=== PATIENT | female | born 1945 | race Caucasian/White ===

== ENCOUNTER 2021-09-21 13:43 | Inpatient (IN) | payer MEDICARE ==
[~2021-09-21] VITALS: Ht 162.6 cm; Wt 71.5 kg
[2021-09-21 14:52] LABS: Basophils # (auto) 0 10 ^3/uL (0-0.2); Basophils % (auto) 0.6 % (0.0-2.0); Eosinophils # (auto) 0.3 10 ^3/uL (0-0.8); Eosinophils % (auto) 4.4 % (0.0-7.0); Hematocrit 40.7 % (36.0-46.0); Hemoglobin 13.5 g/dL (12.2-16.2); Lymphocytes # (auto) 1.3 10 ^3/uL (0.4-5.4); Lymphocytes % (auto) 22.3 % (10.0-50.0); Mean Corpuscular Hgb Conc. 33.2 g/dL (32.0-36.0); Mean Corpuscular Volume 93.4 fL (80.0-100.0); Monocytes # (auto) 0.5 10 ^3/uL (0-1.3); Monocytes % (auto) 8.8 % (0.0-12.0); Neutrophils # (auto) 3.7 10 ^3/uL (1.6-8.6); Neutrophils % (auto) 63.9 % (37.0-80.0); Red Blood Cells 4.36 10^6/uL (4.0-5.20); Red Cell Distribution Width 13.3 % (11.8-14.3); White Blood Cell 5.7 10^3/uL (4.4-10.8)
[2021-09-21 15:07] LABS: INR 1.04 (0.9-1.15); Partial Thromboplastin Time 23.1 sec (23.6-33.0)
[2021-09-21 15:09] LABS: Albumin 3.5 g/dL (3.4-5.0); Calcium 9.2 mg/dL (8.5-10.1); Potassium 3.9 mmol/L (3.5-5.1)
[2021-09-21 15:13] LABS: BUN/Creatinine Ratio 33.3; Bilirubin, Total 0.8 mg/dL (0.2-1.0); Total Protein 6.7 g/dL (6.4-8.2)
[2021-09-21 16:04] LABS: Urine Bacteria NONE SEEN /hpf (None Seen); Urine Blood Negative /uL (Negative); Urine Specific Gravity 1.007 (1.001-1.035); Urine WBC <1 /hpf (0 - 5)
[2021-09-21] MEDS ORDERED: hydrALAZINE HCL 20 MG/ML VL IV PRN (19:15)
[2021-09-21] MEDS ORDERED: NITROGLYCERIN 0.4 MG SL TAB SL PRN (19:15)
[2021-09-21] MEDS ORDERED: ALBUTEROL SULF 2.5 MG/0.5ML(0.5%) NEB SOLN NEB PRN (19:15)
[2021-09-21] MEDS ORDERED: ONDANSETRON HCL 4 MG/2 ML VIAL IV PRN (19:15)
[2021-09-21] MEDS ORDERED: DOCUSATE CALCIUM 240 MG CAP PO PRN (19:15)
[2021-09-21] MEDS ORDERED: MORPHINE SULFATE INJECTION 2 MG/ML SYRG IV PRN ×2 (19:15)
[2021-09-21] MEDS ORDERED: ACETAMINOPHEN 500 MG TAB PO PRN (19:15)
[2021-09-21] MEDS ORDERED: SODIUM CHLORIDE 0.9% 1,000 ML IV SCH (19:15)
[2021-09-21 20:49] LABS: Basophils # (auto) 0 10 ^3/uL (0-0.2); Basophils % (auto) 0.5 % (0.0-2.0); Eosinophils # (auto) 0.3 10 ^3/uL (0-0.8); Eosinophils % (auto) 5.1 % (0.0-7.0); Hematocrit 45.4 % (36.0-46.0); Hemoglobin 14.9 g/dL (12.2-16.2); Lymphocytes # (auto) 1.6 10 ^3/uL (0.4-5.4); Lymphocytes % (auto) 31.6 % (10.0-50.0); Mean Corpuscular Hemoglobin 31.1 pg (28.0-32.0); Mean Corpuscular Hgb Conc. 32.7 g/dL (32.0-36.0); Mean Corpuscular Volume 95.1 fL (80.0-100.0); Monocytes # (auto) 0.3 10 ^3/uL (0-1.3); Monocytes % (auto) 6.3 % (0.0-12.0); Neutrophils # (auto) 2.8 10 ^3/uL (1.6-8.6); Neutrophils % (auto) 56.5 % (37.0-80.0); Nucleated Red Blood Cells % 0.1 %; Red Blood Cells 4.78 10^6/uL (4.0-5.20); Red Cell Distribution Width 12.9 % (11.8-14.3)
[2021-09-21 21:09] LABS: Albumin 3.6 g/dL (3.4-5.0); Calcium 9.5 mg/dL (8.5-10.1); Potassium 3.8 mmol/L (3.5-5.1)
[2021-09-21 21:15] LABS: BUN/Creatinine Ratio 33.3; Bilirubin, Total 0.9 mg/dL (0.2-1.0); Total Protein 7.3 g/dL (6.4-8.2)
[2021-09-21 21:26] VITALS: BP 148/81
[2021-09-21] MEDS: LOSARTAN POTASSIUM 50 MG TAB PO SCH (21:31)
[2021-09-21] MEDS: amLODIPine BESYLATE 5 MG TAB PO SCH (21:32)
[2021-09-21] MEDS ORDERED: AMITRIPTYLINE HCL 25 MG TAB PO SCH (22:00)
[2021-09-21 23:00] VITALS: BP 136/62
[2021-09-22 05:00] VITALS: BP 121/59
[2021-09-22] MEDS: LEVOTHYROXINE SODIUM 100 MCG TAB PO SCH (06:38)
[2021-09-22 08:00] VITALS: BP 114/52
[2021-09-22] MEDS: ENOXAPARIN SOD 40 MG/0.4 ML SYRINGE SC SCH (09:40)
[2021-09-22] MEDS: PANTOPRAZOLE 40 MG TAB PO SCH (09:40)
[2021-09-22] MEDS: HCTZ 25 MG TAB PO SCH (09:41)
[2021-09-22 09:49] VITALS: BP 114/52
[2021-09-22 14:05] VITALS: BP 153/65
[2021-09-22 16:38] VITALS: BP 144/75
[2021-09-22] MEDS ORDERED: ASPirin 81 mg TAB PO ONE (17:30)
[2021-09-22] MEDS ORDERED: AMLO-489 PO (17:56)
[2021-09-22] MEDS ORDERED: SIMV-8 PO (17:56)
[2021-09-22] MEDS ORDERED: LOSA-69 PO (17:56)
[2021-09-22] MEDS ORDERED: AMIT25TA12 PO (17:56)
[2021-09-22] MEDS ORDERED: VITA400C49 PO (17:56)
[2021-09-22] MEDS ORDERED: CYCL-839 PO (17:56)
[2021-09-22] MEDS ORDERED: LEVO100T8 PO (17:56)
[2021-09-22] MEDS ORDERED: ASPI325T4 PO (17:56)
[2021-09-22] MEDS ORDERED: MULT-1018 PO (17:56)
[2021-09-22] MEDS ORDERED: ALBU108A14 IN (17:56)
[2021-09-22] MEDS ORDERED: HYDR25TA4 PO (17:56)
[2021-09-22] MEDS ORDERED: OMEG100062 PO (17:56)
[2021-09-22] MEDS ORDERED: PROP20TA73 PO (17:56)
[2021-09-22] MEDS ORDERED: ASCO500T11 PO (17:56)
[2021-09-22] MEDS ORDERED: PYRI1TAB11 PO (17:56)
[2021-09-22] MEDS ORDERED: COEN1CAP8 PO (17:56)
[2021-09-22] MEDS ORDERED: PROP80CA40 PO (17:56)
[2021-09-22] MEDS ORDERED: LORazepam 2MG/ML-1ML VIAL IV PRN (21:30)
[2021-09-22] MEDS: ASPirin 325 MG TAB PO SCH (21:30)
[2021-09-22 22:00] VITALS: BP 148/81
[2021-09-22] MEDS ORDERED: ATORVASTATIN 20 MG TAB PO SCH ×2 (22:00)
[2021-09-22] MEDS ORDERED: AMITRIPTYLINE HCL 25 MG TAB PO SCH (22:00)
[2021-09-22] MEDS: LOSARTAN POTASSIUM 50 MG TAB PO SCH (22:19)
[2021-09-22] MEDS: PROPRANOLOL HCL 20 MG TAB PO SCH (22:19)
[2021-09-22] MEDS: amLODIPine BESYLATE 5 MG TAB PO SCH (22:20)
[2021-09-22 23:07] LABS: Cholesterol 175 mg/dL (< 200); Triglycerides 172 mg/dL (< 150)
[2021-09-22 23:10] LABS: HDL Cholesterol 55 mg/dL (40-59); LDL Cholesterol 104 mg/dL (< 100)
[2021-09-23 05:00] VITALS: BP 14/59
[2021-09-23] MEDS: LEVOTHYROXINE SODIUM 100 MCG TAB PO SCH (06:49)
[2021-09-23] MEDS: PROPRANOLOL HCL 20 MG TAB PO SCH ×2 (06:49→12:45)
[2021-09-23 09:00] VITALS: BP 120/61
[2021-09-23] MEDS: PANTOPRAZOLE 40 MG TAB PO SCH (09:31)
[2021-09-23] MEDS: ASPirin 325 MG TAB PO SCH (09:31)
[2021-09-23] MEDS: HCTZ 25 MG TAB PO SCH (09:32)
[2021-09-23] MEDS: ENOXAPARIN SOD 40 MG/0.4 ML SYRINGE SC SCH (09:33)
[2021-09-23] MEDS ORDERED: ASPirin 81 mg TAB PO SCH (10:00)
[2021-09-23 14:26] VITALS: BP 142/98
== END 2021-09-23 15:21 | disposition home or self-care (01) | DRG 66 ==
LOC: ER 13:43 → EDSEX 13:43 → TELE 19:02 → TELE-CENTR 21:42
PROVIDERS: ADMIT Family Medicine; ATTEND Internal Medicine Nephrology
DX: I63.9 Cerebral infarction, unspecified (principal); G83.11 Monoplegia of lower limb affecting right dominant side; G25.0 Essential tremor; G43.109 Migraine with aura, not intractable, without status migrainosus; E78.5 Hyperlipidemia, unspecified; I10 Essential (primary) hypertension; J45.909 Unspecified asthma, uncomplicated; R29.6 Repeated falls; E03.9 Hypothyroidism, unspecified; Z20.822 Contact with and (suspected) exposure to COVID-19; Z79.82 Long term (current) use of aspirin; Z79.899 Other long term (current) drug therapy; Z82.49 Family history of ischemic heart disease and other diseases of the circulatory system; Z86.73 Personal history of transient ischemic attack (TIA), and cerebral infarction without residual deficits; Z90.710 Acquired absence of both cervix and uterus; Z91.09 Other allergy status, other than to drugs and biological substances; Z90.49 Acquired absence of other specified parts of digestive tract
CPT/HCPCS: 36415; 70450; 80053; 80061; 81001; 84443; 84484; 85025; 85610; 85730; 87426; 93005; 93886; 96360; G0378

== ENCOUNTER → 2021-10-04 | Outpatient (CLI) | payer MEDICARE ==
[~2021-10-04] MED LIST: ALBU108A14 IN; AMIT25TA12 PO; AMLO-489 PO; ASPI325T4 PO; HYDR25TA4 PO; LEVO100T8 PO; LOSA-69 PO; MULT-1018 PO; OMEG100062 PO; PROP20TA73 PO; SIMV-8 PO
== END | disposition home or self-care (01) ==
LOC: XYW 13:41
PROVIDERS: ATTEND Psychiatry & Neurology Neurology
DX: I35.0 Nonrheumatic aortic (valve) stenosis (principal); I05.0 Rheumatic mitral stenosis; I63.9 Cerebral infarction, unspecified
CPT/HCPCS: 93306

== ENCOUNTER → 2021-10-12 | Outpatient (CLI) | payer MEDICARE ==
[2021-10-12 12:43] LABS: Cholesterol 159 mg/dL (< 200); HDL Cholesterol 71 mg/dL (40-59); LDL Cholesterol 70 mg/dL (< 100); Triglycerides 84 mg/dL (< 150)
== END | disposition home or self-care (01) ==
LOC: LAB 11:42
PROVIDERS: ATTEND Psychiatry & Neurology Neurology
DX: I63.9 Cerebral infarction, unspecified (principal)
CPT/HCPCS: 36415; 80061

== ENCOUNTER 2023-10-04 20:08 | Emergency (ER) | payer MEDICARE ==
[~2023-10-04] VITALS: Ht 162.6 cm; Wt 65.9 kg
[~2023-10-04 20:08] MED LIST changes: -AMIT25TA12 PO; +AMIT25TA20 PO; -AMLO-489 PO; +AMLO1TAB22 PO; -LOSA-69 PO; +LOSA50TA46 PO; +PROP1TAB53 PO; -PROP20TA73 PO; -SIMV-8 PO; +SIMV20TA20 PO
[2023-10-04] MEDS ORDERED: HYDROcodone-ACET 10/325MG TAB PO ONE (20:45)
[2023-10-04] MEDS ORDERED: LIDOCAINE W/ EPINEPHRINE 1% 20ML VIAL ID ONE (20:45)
[2023-10-04] MEDS ORDERED: LIDOCAINE HCL 5 % TOP OINT 35 GM TOP ONE (20:45)
[2023-10-04] MEDS ORDERED: ONDANSETRON ODT 4 MG TAB PO ONE (20:45)
[2023-10-04 20:48] VITALS: RESP 13; O2SAT 95
[2023-10-04 23:00] VITALS: BP 142/63; PULSE 65; RESP 15; TEMP 98.2; O2SAT 97
[2023-10-04] MEDS ORDERED: NEOMYCIN-BACITRACIN-POLYM UNITDOSE PKG TOP OINT TOP ONE (23:30)
== END 2023-10-05 00:23 | disposition home or self-care (01) ==
LOC: ER 20:08 → EDBD 20:08 → ER 10-05 00:16
DX: S01.01XA Laceration without foreign body of scalp, initial encounter (principal); I10 Essential (primary) hypertension; E78.5 Hyperlipidemia, unspecified; W18.09XA Striking against other object with subsequent fall, initial encounter; Y93.89 Activity, other specified; Y92.89 Other specified places as the place of occurrence of the external cause; Y99.8 Other external cause status
CPT/HCPCS: 12002; 70450

== ENCOUNTER 2025-05-02 23:17 | Inpatient (IN) | payer MEDICARE ==
[~2025-05-02] VITALS: Ht 162.6 cm; Wt 65.5 kg
[~2025-05-02 23:17] MED LIST changes: -ASPI325T4 PO; +ASPI325T6 PO; +LOSA-534 PO; -LOSA50TA46 PO
[2025-05-03] VITALS (10 sets, daily range): BP systolic 125–157; BP diastolic 66–73; PULSE 53–78; RESP 12–21; TEMP 98.3–98.6; O2SAT 93–98
--- NOTE | 2025-05-03 00:05 | DVH ---
CHEST RADIOGRAPH Indication: dizziness Technique: Single frontal view of the chest was obtained COMPARISON: None FINDINGS: Lines and Tubes: None Lungs: Clear Pleura: No effusion. No pneumothorax. Cardiomediastinal contours: Unremarkable. Atherosclerotic vascular calcifications. Bones: Unremarkable IMPRESSION: 1. No acute disease.
[2025-05-03 00:13] LABS: Hematocrit 47.0 % (36.0-46.0); Hemoglobin 15.9 g/dL (12.2-16.2); Mean Corpuscular Hemoglobin 31.7 pg (28.0-32.0); Mean Corpuscular Volume 93.8 fL (80.0-100.0); Nucleated Red Blood Cells % 0.0 %
[2025-05-03 00:21] LABS: Chloride 105 mmol/L (98-107); Potassium 3.6 mmol/L (3.5-5.1); Sodium 142 mmol/L (136-145)
[2025-05-03 00:22] LABS: Anion Gap 9 (5-15); Calcium 9.7 mg/dL (8.7-10.4); Carbon Dioxide 28 mmol/L (20-31)
--- NOTE | 2025-05-03 00:26 | DVH ---
CT BRAIN WITHOUT CONTRAST HISTORY: falling TECHNIQUE: Axial scans were obtained from the skull base through the vertex without contrast. Sag[place] l and coronal reformats were generated. One or more of the following radiation dose reduction techniq ues were used for this examination: automated exposure control, adjustment of the mA and/or kV accord ing to patient size, use of iterative reconstruction technique. COMPARISON: CT HEAD WITHOUT CONTRAST on DOS: 10/04/23 FINDINGS: No acute intracranial hemorrhage or evidence of large vessel territorial infarction identified at thi s time. No midline shift. The basilar cisterns are patent. The visualized paranasal sinuses and mastoid air cells are clear. No grossly displaced calvarial frac ture is identified. Small left frontal scalp contusion. IMPRESSION: No acute intracranial findings. Small left frontal scalp contusion.
[2025-05-03 00:27] LABS: BUN/Creatinine Ratio 22.2 (10.0-20.0); Blood Urea Nitrogen 18 mg/dL (9-23)
--- NOTE | 2025-05-03 00:29 | ED.PDOC ---
History of Present Illness HPI Comments 79 y/o F presents with 2x day history of headache, generalized facial and forehead bruising, and dizziness s/p mechanical fall and injury. Patient endorses on losing her balance and falling face forward and hitting the floor without lost of consciousness 2x days ago. Significant history of history of HTN, HLD, hypothyroidism, reactive airway disease, migraines, CVA w/right sided deficits, tremors, thyroidectomy, right breast lumpectomy, cholecystectomy, and hysterectomy. Patient comments on right sided weakness worsening over the past 4-5x days. Denies any lightheadedness, vision or speech changes, facial droop, additional injuries, or further associated symptoms. Chief Complaint: Dizziness Time Seen by MD: 23:30 Primary Care Provider: CHRISTINE Reviewed Notes: Nurses Notes, Medications, Allergies Allergies: Coded Allergies: Codeine (Verified Allergy, Unknown, 05/03/25) Uncoded Allergies: PAPER TAPE (Allergy, Unknown, 09/21/21) Home Meds Reported Medications Propranolol HCl (Propranolol Hydrochloride) 20 Mg Tab, 20 MG PO BIDP PRN for SBP>150, TAB 09/22/21 [place]-3 Fatty Acids (Fish Oil) 1,000 Mg Cap, 1000 MG PO DAILY, CAP 09/22/21 Multiple Vitamin (Multivitamins) Tab, 1 TAB PO DAILY, #90 TAB 3 Refills 09/22/21 Aspirin (Aspirin) 325 Mg Tab, 325 MG PO DAILY for 30 Days, MG 09/22/21 Albuterol Sulfate (Proair Digihaler) 108 Mcg/Act Aer, 108 MCG IN, AER 09/22/21 Hydrochlorothiazide (Hydrochlorothiazide) 25 Mg Tab, 25 MG PO DAILY for 30 Days, MG 09/22/21 Losartan Potassium (Losartan Potassium) 50 Mg Tab, 50 MG PO DAILY for 30 Days, MG 09/22/21 Amlodipine Besylate (Amlodipine Besylate) 5 Mg Tab, 5 MG PO DAILY for 30 Days, MG 09/22/21 Amitriptyline Hcl (Amitriptyline Hcl) 25 Mg Tab, 100 MG PO HS for 30 Days, MG 09/22/21 Levothyroxine Sodium (Levothyroxine Sodium) 100 Mcg Tab, 100 MCG PO QAM for 30 Days, MCG 09/22/21 Simvastatin (Simvastatin) 20 Mg Tab, 20 MG PO DAILY for 30 Days 11/19/21 Information Source: Patient Mode of Arrival: Ambulatory Severity: Moderate Timing: Days Duration: Since onset Prehospital treatment: None Past Medical History PAST MEDICAL HISTORY: CVA, High Lipids, HTN, Thyroid (hypothyroidism ), TIA Past Medical History (Other): reactive airway disease, migraines, tremors Surgical History: Cholecystectomy, Hysterectomy, Thyroidectomy Surgical History (Other): right breast lumpectomy 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 History Family History Family History: Reviewed,noncontributory to illness Social History Smoker: Non-Smoker Alcohol: Denies ETOH Use Drugs: Denies Drug Use Lives In: Home All Other Systems: Reviewed and Negative (As per HPI) Physical Exam General Appearance: No Apparent Distress, Normal HEENT: Normal ENT Inspection, Pharynx Normal, TMs Normal Neck: Full Range of Motion, Non-Tender, Normal, Normal Inspection Respiratory: Chest Non-Tender, Lungs Clear, No Accessory Muscle Use, No Respiratory Distress, Normal Breath Sounds Cardiovascular: No Edema, No JVD, No Murmur, No Gallop, Normal Peripheral Pulses, Regular Rate/Rhythm Breast Exam: Deferred Gastrointestinal: No Organomegaly, Non Tender, No Pulsatile Mass, Normal Bowel Sounds, Soft Genitalia: Deferred Pelvic: Deferred Rectal: Deferred Extremities: No calf tenderness, Normal capillary refill, Normal inspection, Normal range of motion, Non-tender, No pedal edema Musculoskeletal : Apperance: Normal 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 Was a procedure done?: No Differential Dx Considerations may include: Closed head injury, intracranial bleed, CVA, TIA, syncope, arrhythmia, hypoglycemia, hypotension, intracranial bleed, skull fracture X-Ray, Labs, Meds, VS Vital Signs Date Time Temp Pulse Resp B/P (MAP) Pulse Ox O2 Delivery O2 Flow Rate FiO2 05/02/25 23:30 98.1 67 16 139/37 (71) 95 98.1 Lab Test 05/02/25 23:53 Range/Units White Blood Count 6.8 4.4-10.8 10^3/uL Red Blood Count 5.01 4.0-5.20 10^6/uL Hemoglobin 15.9 12.2-16.2 g/dL Hematocrit 47.0 H 36.0-46.0 % Mean Corpuscular Volume 93.8 80.0-100.0 fL Mean Corpuscular Hemoglobin 31.7 28.0-32.0 pg Mean Corpuscular Hemoglobin Concent 33.8 32.0-36.0 g/dL Red Cell Distribution Width 13.2 11.8-14.3 % Platelet Count 281 140-450 10^3/uL Mean Platelet Volume 8.2 6.9-10.8 fL Neutrophils (%) (Auto) 62.0 37.0-80.0 % Lymphocytes (%) (Auto) 25.3 10.0-50.0 % Monocytes (%) (Auto) 8.5 0.0-12.0 % Eosinophils (%) (Auto) 3.8 0.0-7.0 % Basophils (%) (Auto) 0.4 0.0-2.0 % Neutrophils # (Auto) 4.2 1.6-8.6 10 ^3/uL Lymphocytes # (Auto) 1.7 0.4-5.4 10 ^3/uL Monocytes # (Auto) 0.6 0-1.3 10 ^3/uL Eosinophils # (Auto) 0.3 0-0.8 10 ^3/uL Basophils # (Auto) 0 0-0.2 10 ^3/uL Nucleated Red Blood Cells 0.0 % Sodium Level 142 136-145 mmol/L Potassium Level 3.6 3.5-5.1 mmol/L Chloride Level 105 98-107 mmol/L Carbon Dioxide Level 28 20-31 mmol/L Anion Gap 9 5-15 Blood Urea Nitrogen 18 9-23 mg/dL Creatinine 0.81 0.550-1.02 mg/dL Glomerular Filtration Rate Calc 74 >90 mL/min BUN/Creatinine Ratio 22.2 H 10.0-20.0 Serum Glucose 112 H 74-106 mg/dL Calcium Level 9.7 8.7-10.4 mg/dL Troponin I High Sensitivity 11 </=34 ng/L Time of 1ST Reevaluation: 00:00 Reevaluation 1ST: Unchanged Patient Education/Counseling: Diagnosis, Treatment, Prognosis, Need For Follow Up Family Education/Counseling: Diagnosis, Treatment, Prognosis, Need For Follow Up, No Family Present Comments pt reports feeling dizzy and lost her balance, which led to her hitting her face on the floor, without attempting to break her fall. she denies LOC, but cannot explain why she did not try to break her fall. this seems unusual. she has had a CVA in the past. i will admit her for further evaluation of this suspected syncopal episode SEPSIS Sepsis Screen Physician Orders Head Without Contrast (05/02/25 23:37) Chest Portable (05/02/25 23:37) Continuous Ekg Monitoring 08,12,16,20,00,04 (05/02/25 23:37) Electrocardigram (05/02/25 23:37) Troponin-I Hs (05/03/25 00:37) Troponin-I Hs (05/03/25 02:37) Electrocardigram (05/03/25 00:37) Electrocardigram (05/03/25 02:37) Vital Signs Date Time Temp Pulse Resp B/P (MAP) Pulse Ox O2 Delivery O2 Flow Rate FiO2 05/02/25 23:30 98.1 67 16 139/37 (71) 95 98.1 Laboratory Tests Test 05/02/25 23:53 White Blood Count 6.8 10^3/uL (4.4-10.8) Departure 1 Departure Time of Disposition: 00:45 Impression: Primary Impression: Facial contusion Qualified Codes: S00.83XA - Contusion of other part of head, initial encounter Additional Impressions: Falling Syncope Qualified Codes: R55 - Syncope and collapse Disposition: ADMITTED INPATIENT Admit to: [facility] Condition: Stable Discharged With: Self Critical Care Note Critical Care Time?: Yes (55 min-critical care time only) Critical care comment: Due to concerns for patients condition deteriorating, the care required my highest level of attention and readiness to intervene. I assessed the patient, reviewed the medical records, ordered the appropriate tests and treatments, then reassessed for results and responsiveness. I communicated with medical personnel and consultants and formulated a plan of care. Total critical care time excludes any procedures Stability Stability form required: No Heart Score Heart Score: Heart Score Response (Comments) Value History N/A 0 EKG N/A 0 Age N/A 0 Risk Factors N/A 0 Troponin N/A 0 Total 0 I personally scribed for PEARL COBB MD [facility] on 05/03/25 at 00:29. Electronically submitted by Andres Coleman [email or web address]). PEARL COBB MD May 03, 2025 00:29
[2025-05-03 00:32] LABS: Glucose 112 mg/dL (74-106)
[2025-05-03] MEDS ORDERED: ACETAMINOPHEN 325 MG TAB PO PRN (07:45)
[2025-05-03] MEDS ORDERED: ONDANSETRON HCL 4 MG/2 ML VIAL IV PRN (07:45)
[2025-05-03] MEDS ORDERED: MORPHINE SULFATE INJ 2 MG/ml SYRG IV PRN (07:45)
[2025-05-03] MEDS ORDERED: NITROGLYCERIN 0.4 MG SL TAB SL PRN (07:45)
[2025-05-03] MEDS ORDERED: DOCUSATE SOD 100 MG CAP PO PRN (07:45)
[2025-05-03] MEDS ORDERED: HYDROcodone-ACET 5/325MG TAB PO PRN (07:45)
--- NOTE | 2025-05-03 07:48 | DVHHP2 ---
History of Present Illness Reason for Visit: Fall History of Present Illness Barbara Macias is a 79-year-old female with past medical history of hypertension, hyperlipidemia, migraines, hypothyroidism, and CVA who came to the hospital due to dizziness and falls. Patient states she has had 2 fall in the last week. She has visible trauma to her face, and forehead. She states she has been experiencing dizziness that feels like vertigo. She states it feels like the floor is moving, she gets an anxious feeling, and becomes shaky. She states she fell on and Saturday. Her said she fell out of bed Saturday morning and landed on her face, she does not remember the event. Patient is bradycardic while in the ER. She does take propranolol at home, home propranolol will be held. 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) Endocrine: Hypothyroidism Past Surgical History: Cholecystectomy, Hysterectomy, Other (Thyroidectomy, left breast lumpectomy) Smoke: No ALCOHOL: none Drugs: None Lives: with Family Domestic Violence: Neg Review of Systems Allergies: Coded Allergies: Codeine (Verified Allergy, Unknown, 05/03/25) Uncoded Allergies: PAPER TAPE (Allergy, Unknown, 09/21/21) Medications Current Medications Medications Dose Ordered Sig/Low Route Start Time Stop Time Status Last Admin Dose Admin Acetaminophen/ Hydrocodone Bitart 1 tab Q4HP PRN PO 05/03/25 07:45 UNV Ondansetron HCl 4 mg Q4HP PRN IV 05/03/25 07:45 UNV Docusate Sodium 100 mg BIDPRN PRN PO 05/03/25 07:45 UNV Acetaminophen 650 mg Q6HP PRN PO 05/03/25 07:45 UNV Nitroglycerin 0.4 mg Q5MINP PRN SL 05/03/25 07:45 UNV Morphine Sulfate 2 mg Q30M PRN IV 05/03/25 07:45 UNV Exam Vital Signs Vital Signs Date Time Temp Pulse Resp B/P (MAP) Pulse Ox O2 Delivery O2 Flow Rate FiO2 05/03/25 07:04 181/62 05/03/25 06:41 56 18 97 Room Air* 0 21 05/03/25 06:41 98.1 98.1 Labs/Xrays Labs Test 05/03/25 00:56 05/02/25 23:53 Range/Units Troponin I High Sensitivity 10 </=34 ng/L White Blood Count 6.8 4.4-10.8 10^3/uL Red Blood Count 5.01 4.0-5.20 10^6/uL Hemoglobin 15.9 12.2-16.2 g/dL Hematocrit 47.0 H 36.0-46.0 % Mean Corpuscular Volume 93.8 80.0-100.0 fL Mean Corpuscular Hemoglobin 31.7 28.0-32.0 pg Mean Corpuscular Hemoglobin Concent 33.8 32.0-36.0 g/dL Red Cell Distribution Width 13.2 11.8-14.3 % Platelet Count 281 140-450 10^3/uL Mean Platelet Volume 8.2 6.9-10.8 fL Neutrophils (%) (Auto) 62.0 37.0-80.0 % Lymphocytes (%) (Auto) 25.3 10.0-50.0 % Monocytes (%) (Auto) 8.5 0.0-12.0 % Eosinophils (%) (Auto) 3.8 0.0-7.0 % Basophils (%) (Auto) 0.4 0.0-2.0 % Neutrophils # (Auto) 4.2 1.6-8.6 10 ^3/uL Lymphocytes # (Auto) 1.7 0.4-5.4 10 ^3/uL Monocytes # (Auto) 0.6 0-1.3 10 ^3/uL Eosinophils # (Auto) 0.3 0-0.8 10 ^3/uL Basophils # (Auto) 0 0-0.2 10 ^3/uL Nucleated Red Blood Cells 0.0 % Sodium Level 142 136-145 mmol/L Potassium Level 3.6 3.5-5.1 mmol/L Chloride Level 105 98-107 mmol/L Carbon Dioxide Level 28 20-31 mmol/L Anion Gap 9 5-15 Blood Urea Nitrogen 18 9-23 mg/dL Creatinine 0.81 0.550-1.02 mg/dL Glomerular Filtration Rate Calc 74 >90 mL/min BUN/Creatinine Ratio 22.2 H 10.0-20.0 Serum Glucose 112 H 74-106 mg/dL Calcium Level 9.7 8.7-10.4 mg/dL Assessment/Plan Assessment/Plan Assessment: Syncope, Fall with facial injury, Bradycardia, Hypertension, Hyperlipidemia, hypothyroidism, Plan: Admit to Tele, Neurology consult, Cardiology consult, Fall precautions, Physical therapy evaluation, Home medications reconciled, Plan discussed with: Patient My Orders Orders - FREDDY HOYT Procedure Category Date Status Time Admit ADMIT 05/03/25 Transmitted 07:41 Code Status CODE 05/03/25 Transmitted 07:41 2 Gm Sodium Diet DIET 05/03/25 Transmitted Breakfast Hydrocodone-Acet PHA 05/03/25 Transmitted 5/325mg Tab ([place] 07:45 Ondansetron Hcl PHA 05/03/25 Transmitted (Zofran) 07:[address] [facility] 05/03/25 Transmitted Capsule (Colace 07:45 Fall Risk Precautions [facility] 05/03/[address] 07:41 Complete Blood Count LAB 05/04/25 Verified 04:00 Comprehensive LAB 05/04/25 Verified Metabolic Panel 04:00 Pt Request For Service PT 05/03/25 Logged 07:41 Condition: Serious [facility] 05/03/25 In Process 07:[address] [facility] 05/03/25 Transmitted (Tylenol Tablet) 07:[address] [facility] 05/03/25 Transmitted Sublingual (Ntrostat 07:45 Morphine Sulfate PHA 05/03/25 Transmitted Injection 07:45 Stat Ekg For Chest [facility] 05/03/25 In Process Pain 07:41 Notify Md Of Changes [facility] 05/03/25 In Process From Base 07:41 Vice President Of Sales For [facility] 05/03/25 In Process 24 Hours 07:41 Emergency Dysrhythmia [facility] 05/03/25 In Process Protocol 07:41 Rhythm Strips Once [facility] 05/03/25 In Process Every Shift 07:41 Oxygen By Nasal RT 05/03/25 Transmitted Cannula 07:41 * Neurology Consult CONS 05/03/25 Transmitted 07:41 Date of Service: May 03, 2025 Billing Provider: FREDDY HOYT Common Visit Codes: [id number] INP/OBS CARE (MOD) FREDDY HYOT May 03, 2025 07:48
--- NOTE | 2025-05-03 08:59 | DVHINCON2 ---
Date of service: May 03, [address] Abbott Reason for Consultation Syncope History of Present Illness Ms. Macias is a 79 years old right-handed female with a history of hypertension, she came to the hospital on 05/02/2025 with a chief complaint of weakness and forehead bruising. At this time, she is alert and fully oriented, she provided the following history I saw on 09/22/2021 for TIA/right leg weakness, shaky feeling. She does not know what happened to her, but she woke up on the floor by her bedside with bruise in the head; she presumes she was told me wrong direction and fell off bed and she might have loss of consciousness for sec of time, on waking up, she was confused, but she knew the place, the time, and family member around her. She noticed bruise in the left forehead. She denies headache In the evening on 05/01/2025, when she was bending over to potato picker something, she slumped over and hurt her head again, positive with loss of consciousness for sec of time, and she ended with bilateral periorbital bruises. She has no headache following the fall Since 05/02/2025, she notices her speech is not normal, in that she understands, and she knows what to say but has difficulty getting the right words out. Her problem is better on 05/03/2025 but still persists, She denies focal weakness numbness. In 1994, the patient developed numbness in the right lower lip, spreading the right face, the patient did not seek medical attention to 10 days later after her family doctor was available. Later she was seen by neurologist and had an MRI, according to the report she came with, MRI and MRA brain scan on 08/05/1995 for unremarkable. She is on aspirin 325 mg daily, Zocor 20 mg daily She has tremors in the hands since 1999, with the right side more affected. She has tremors when she is eating, drinking, writing or work with her hands, as result, she has difficulty putting make-up, writing, eating. Alcohol does not affect the tremors. I do not see change in her voice, diminished facial expression and blinking, she is on Inderal 160 mg daily, with good results. Her mental [place] and her mother had similar tremors She has periodic severe headache with photophobia, phonophobia, nausea since the age of [age] years old. The headache typically lasts for 24 hours, and is used to be 3 to 4 times monthly, hhe had spinning sensation or vertigo during the intense headache attacks. With amitriptyline 100 mg daily, Inderal 160 mg daily, the headache has been under good control, her last intense headache was before 2023. Her father, 2 sons had/have similar headache or migraine headache. No family history of brain aneurysm She sees Dr. Stein, a local neurologist CBC, 05/02/2025: Unremarkable BMP 05/02/2025: Unremarkable TG/HDL/LDL/HDL, 10/12/21: 84/159/70/71 Carotid Doppler, 09/22/2021: Unremarkable CT head, 09/21/2021: 1. No acute intracranial hemorrhage, mass effect or midline shift. 2. Mild generalized atrophy. Mild microangiopathic ischemic change. 3. Intracranial atherosclerosis CT head, 05/02/2025: No acute intracranial findings. Small left frontal scalp contusion. Past Medical History Hypertension, hypothyroidism, dyslipidemia, tremors Past Surgical History Cholecystectomy, hysterectomy, thyroidectomy Family History: Hypercholesterolemia Hypertension Family History Hypertension, dyslipidemia, migraine (father, 2 sons), her mother and the maternal grandpa had tremors Social History She is a nontobacco smoker, she denies a history of alcohol recreational substance abuse Allergies: Coded Allergies: Codeine (Verified Allergy, Unknown, 05/03/25) Uncoded Allergies: PAPER TAPE (Allergy, Unknown, 09/21/21) Home Meds Reported Medications Propranolol HCl (Propranolol Hydrochloride) 160 Mg Cap, 160 MG PO DAILY 05/03/25 Amitriptyline HCl (Amitriptyline Hydrochlori) 100 Mg Tab, 1 TAB PO HS 05/03/25 Citalopram Hydrobromide (Citalopram Hydrobromide) 40 Mg Tab, 1 TAB PO DAILY 05/03/25 Propranolol HCl (Propranolol Hydrochloride) 20 Mg Tab, 20 MG PO BIDP PRN for SBP>150, TAB 09/22/21 [place]-3 Fatty Acids (Fish Oil) 1,000 Mg Cap, 1000 MG PO DAILY, CAP 09/22/21 Multiple Vitamin (Multivitamins) Tab, 1 TAB PO DAILY, #90 TAB 3 Refills 09/22/21 Aspirin (Aspirin) 325 Mg Tab, 325 MG PO DAILY for 30 Days, MG 09/22/21 Albuterol Sulfate (Proair Digihaler) 108 Mcg/Act Aer, 108 MCG IN, AER 09/22/21 Hydrochlorothiazide (Hydrochlorothiazide) 25 Mg Tab, 25 MG PO DAILY for 30 Days, MG 09/22/21 Losartan Potassium (Losartan Potassium) 50 Mg Tab, 50 MG PO DAILY for 30 Days, MG 09/22/21 Levothyroxine Sodium (Levothyroxine Sodium) 100 Mcg Tab, 100 MCG PO QAM for 30 Days, MCG 09/22/21 Simvastatin (Simvastatin) 20 Mg Tab, 20 MG PO DAILY for 30 Days 09/22/21 Discontinued Reported Medications Amlodipine Besylate (Amlodipine Besylate) 5 Mg Tab, 5 MG PO DAILY for 30 Days, MG 09/22/21 Amitriptyline Hcl (Amitriptyline Hcl) 25 Mg Tab, 100 MG PO HS for 30 Days, MG 09/22/21 Current Medications Current Medications Medications (Trade) Dose Ordered Sig/Low Route PRN Reason Start Time Stop Time Status Last Admin Acetaminophen/ Hydrocodone Bitart ([place] 5/325MG Tab) 1 tab Q4HP PRN PO MODERATE PAIN (4-6 PAIN SCALE) 05/03/25 07:45 Ondansetron HCl (Zofran) 4 mg Q4HP PRN IV NAUSEA / VOMITING 05/03/25 07:45 Docusate Sodium (Colace Capsule) 100 mg BIDPRN PRN PO FOR CONSTIPATION 05/03/25 07:45 Acetaminophen (Tylenol Tablet) 650 mg Q6HP PRN PO PAIN SCALE 1-3 OR TEMP>100.4 05/03/25 07:45 Nitroglycerin (Ntrostat Sublingual) 0.4 mg Q5MINP PRN SL FOR CHEST PAIN 05/03/25 07:45 Morphine Sulfate 2 mg Q30M PRN IV FOR CHEST PAIN 05/03/25 07:45 Review of Systems As above, the other systems are negative Vital Signs Vital Signs Date Time Temp Pulse Resp B/P (MAP) Pulse Ox O2 Delivery O2 Flow Rate FiO2 05/03/25 08:25 97.7 52 12 163/63 (96) 95 97.7 05/03/25 07:30 Room Air* 0 21 Physical Exam GENERAL EXAM: General: the patient is well developed and nourished. No acute distress. HEENT: A big bruise in the left frontal head region, bilateral periorbital ecchymosis with the right-sided worse, neck is supple, no carotid bruits. No mass. RESPIRATORY: Normal respiratory effort with symmetrical lung expansion. Lungs clear to auscultation. CARDIOVASCULAR: Regular rate and rhythm with no murmurs. S1, S2. ABDOMEN: Soft, nontender, normal bowel sound NEUROLOGICAL: MENTAL STATUS: Awake and alert. Oriented to person, place, time and general circumstances. Able to give personal history. SPEECH, LANGUAGE, HIGHER CORTICAL FUNCTION: no aphasia or dysathria. CRANIAL NERVES: #2: Intact visual desouza to confrontation. The optic discs were sharp. #3,4,6: Pupils are equal, round and reactive. EOMs full and conjugate. No nystagmus. #5: Facial sensation intact in all three divisions bilaterally. Mandibular strength intact. #7: Facial muscles symmetrical and strength intact. #8: Hearing grossly normal to voice. #9,10: Uvula and soft palate rise in the midline. Swallow and voice are normal. #11: Trapezius and sternomastoid strength intact bilaterally. #12: Tongue midline. No fasciculations or atrophy. SENSATION: Sensation to touch and pinprick is normal. MOTOR: Normal tone in the upper and lower extremity. Normal muscle bulk. No fasciculations. I see very mild bilateral dynamic tremors in the hands. Muscle strength of the major groups in the upper extremities is 5/5. Muscle strength of the major groups in the lower extremities is 5/5. REFLEXES: Deep tendon reflexes normal and symmetrical. No pathological reflexes. CEREBELLAR/COORDINATION: Finger to nose and heel to cooper are normal bilaterally. GAIT/STATION: deferred Labs/Diagnostic Data Labs Test 05/03/25 00:56 05/02/25 23:53 Range/Units Troponin I High Sensitivity 10 </=34 ng/L White Blood Count 6.8 4.4-10.8 10^3/uL Red Blood Count 5.01 4.0-5.20 10^6/uL Hemoglobin 15.9 12.2-16.2 g/dL Hematocrit 47.0 H 36.0-46.0 % Mean Corpuscular Volume 93.8 80.0-100.0 fL Mean Corpuscular Hemoglobin 31.7 28.0-32.0 pg Mean Corpuscular Hemoglobin Concent 33.8 32.0-36.0 g/dL Red Cell Distribution Width 13.2 11.8-14.3 % Platelet Count 281 140-450 10^3/uL Mean Platelet Volume 8.2 6.9-10.8 fL Neutrophils (%) (Auto) 62.0 37.0-80.0 % Lymphocytes (%) (Auto) 25.3 10.0-50.0 % Monocytes (%) (Auto) 8.5 0.0-12.0 % Eosinophils (%) (Auto) 3.8 0.0-7.0 % Basophils (%) (Auto) 0.4 0.0-2.0 % Neutrophils # (Auto) 4.2 1.6-8.6 10 ^3/uL Lymphocytes # (Auto) 1.7 0.4-5.4 10 ^3/uL Monocytes # (Auto) 0.6 0-1.3 10 ^3/uL Eosinophils # (Auto) 0.3 0-0.8 10 ^3/uL Basophils # (Auto) 0 0-0.2 10 ^3/uL Nucleated Red Blood Cells 0.0 % Sodium Level 142 136-145 mmol/L Potassium Level 3.6 3.5-5.1 mmol/L Chloride Level 105 98-107 mmol/L Carbon Dioxide Level 28 20-31 mmol/L Anion Gap 9 5-15 Blood Urea Nitrogen 18 9-23 mg/dL Creatinine 0.81 0.550-1.02 mg/dL Glomerular Filtration Rate Calc 74 >90 mL/min BUN/Creatinine Ratio 22.2 H 10.0-20.0 Serum Glucose 112 H 74-106 mg/dL Calcium Level 9.7 8.7-10.4 mg/dL Assessment Multiple bruises in the head, secondary to falls Speech disturbance/? Expressive aphasia since 05/02/2025, to rule out acute stroke or other pathology History of acute stroke syndrome, with negative MRI scan Basilar artery migraine Essential tremors He has a complicated consultation, time spent is more than 55 minutes Plan/Recommendation Monitoring Support treatment Telemetry Lipid profile MRI brain Carotid Doppler Echocardiogram Aspirin 325 mg daily (home medication) Lipitor 20 mg daily Amitriptyline 100 mg at bedtime (for medication) Inderal 160 mg daily (home medication) Avoid the triptan and ergot agent for headache attack Follow up with her doctors on discharge TOÑO Progress: Poor This medical document was created using an electronic medical record system with [employer] computerized dictation system. Although this document has been carefully reviewed, there may still be some phonetic and typographical errors. These areas are purely typographical due to imperfections of the software programs, and do not reflect any compromise in the patient's medical care. Plan discussed with: Patient, Other WING DOWNEY MD May 03, 2025 08:59
[2025-05-03] MEDS ORDERED: AMIT100T75 PO (09:04)
[2025-05-03] MEDS ORDERED: [UNRECOGNIZED DRUG - CODE] PO (09:04)
[2025-05-03] MEDS ORDERED: CITA-73 PO (09:04)
[2025-05-03] MEDS ORDERED: PATIENTS OWN MEDICATION (Simvastatin 20 MG) PO SCH (10:00)
[2025-05-03] MEDS ORDERED: PATIENTS OWN MEDICATION (Citalopram Hydrobromide 1 TAB) PO SCH (10:00)
[2025-05-03] MEDS: LOSARTAN POTASSIUM 50 MG TAB PO SCH (10:00)
[2025-05-03] MEDS: hydroCHLOROthiazide 25 MG TAB PO SCH (10:00)
[2025-05-03] MEDS: MULTIPLE VITAMIN TAB PO SCH (10:10)
[2025-05-03 11:07] LABS: Triglycerides 142 mg/dL (< 150)
[2025-05-03 11:09] LABS: Cholesterol 186 mg/dL (< 200); HDL Cholesterol 66 mg/dL (40-59)
[2025-05-03] MEDS: ATORVASTATIN 20 MG TAB PO SCH (12:18)
[2025-05-03] MEDS ORDERED: MECLIZINE HCL 25 MG TAB PO PRN (12:45)
--- NOTE | 2025-05-03 12:47 | DVHPN2 ---
Progress Note Date Seen: May 03, 2025 Medical Necessity Reason Pt with a Central, PICC or Fol: No Subjective Patient reports: No new complaints Review of Systems: HEENT:Normal, CVS:Normal, RESPIRATORY:Normal, GI:Normal, :Normal, MSK:Normal, NEURO:Normal Objective vital signs Vital Sign Date Time Temp Pulse Resp B/P (MAP) Pulse Ox O2 Delivery O2 Flow Rate FiO2 05/03/25 10:00 114/37 05/03/25 10:00 55 20 94 05/03/25 08:25 97.7 97.7 05/03/25 07:30 Room Air* 0 21 medications Current Medications Medications Dose Ordered Sig/Low Route Start Time Stop Time Status Last Admin Dose Admin Acetaminophen/ Hydrocodone Bitart 1 tab Q4HP PRN PO 05/03/25 07:45 Ondansetron HCl 4 mg Q4HP PRN IV 05/03/25 07:45 Docusate Sodium 100 mg BIDPRN PRN PO 05/03/25 07:45 Acetaminophen 650 mg Q6HP PRN PO 05/03/25 07:45 Nitroglycerin 0.4 mg Q5MINP PRN SL 05/03/25 07:45 Morphine Sulfate 2 mg Q30M PRN IV 05/03/25 07:45 Hydrochlorothiazide 25 mg DAILY PO 05/03/25 10:00 Levothyroxine Sodium 100 mcg QAM PO 05/04/25 07:00 Losartan Potassium 50 mg DAILY PO 05/03/25 10:00 Multivitamins 1 tab DAILY PO 05/03/25 10:00 05/03/25 10:10 1 TAB Patient Own Medication 20 mg DAILY PO 05/03/25 10:00 UNV Patient Own Medication 1 tab HS PO 05/03/25 22:00 UNV Patient Own Medication 1 tab DAILY PO 05/03/25 10:00 UNV Amitriptyline HCl 100 mg HS PO 05/03/25 22:00 Atorvastatin Calcium 20 mg HS PO 05/03/25 10:45 05/03/25 12:18 20 MG Citalopram Hydrobromide 40 mg DAILY PO 05/04/25 10:00 Examination: GENERAL:Normal, HEENT:Normal, NECK:Normal, LUNGS:Normal, CVS:Normal, ABDOMEN:Normal, MSK:Normal, MSK:Abnormal (BRUISES ON FACE), SKIN:Normal, NEURO:Normal, :Normal laboratory and microbiology Laboratory Tests 05/02/25 23:53 Test 05/02/25 23:53 Range/Units Serum Glucose 112 H 74-106 mg/dL Problem List/Assessment/Plan Problem List/Assessment/Plan #1 s/p fall with facial bruises #2 dizziness ? acute cva ? autonomic failure: check brain mri, orthostatics #3 htn #4 h/o cva #5 hypothyroidism #6 hyperlipidemia advance care planning- full code- time spent 18mins Plan discussed with: Patient Date of Service: May 03, 2025 Billing Provider: TYE MCMAHAN MD Common Visit Codes: [id number] INP/OBS CARE(HIGH) Secondary Visit Codes: [id number] CARE PLAN 30 MINUTES TYE MCMAHAN MD May 03, 2025 12:47
--- NOTE | 2025-05-03 15:43 | DVH ---
CT HEAD WITHOUT CONTRAST Indication: S/P FALL EXAM DATE: 05/03/2025 03:06 PM COMPARISON: CT HEAD WITHOUT CONTRAST on DOS: 05/02/25, TECHNIQUE: CT of the head without intravenous contrast. RADIATION DOSE: CTDIvol: 53.69 mGy, DLP: 1077.19 mGy*cm FINDINGS: There is no intracranial hemorrhage. There is no extra-axial fluid, mass, mass effect or midline shif t. The ventricles are midline and normal in size. Basilar cisterns are patent. There are [id number] rate periventricular and subcortical white matter chronic microvascular ischemic changes. There is mi ld global cerebral volume loss. Left frontal scalp hematoma. The paranasal sinuses and mastoids are well-pneumatized. Imaged portion of the orbits are unremarkabl e. IMPRESSION: No intracranial hemorrhage or mass effect. [id number] chronic microvascular ischemic changes. Small left frontal scalp hematoma.
--- NOTE | 2025-05-03 16:39 | DVHSR ---
APPROVED REPORT EXAM: Two-dimensional and M-mode echocardiogram with Doppler and color Doppler. Blood Pressure: 114/37 mmHg INDICATION CVA RISK FACTORS Height: 5'4", Weight: 141 DIMENSIONS LVDd4.1 (3.8-5.7cm)LA (2D)4.0 (1.9-4.0cm)Aortic Root3.2 (2.0-3.7cm) LVDs2.4 (2.5-4.0cm)LA (MM) (1.9-4.0cm)Aortic Cusp Exc1.7 (1.5-2.0cm) EF (%) 65.0 (55-70%)Rt. Atrium3.0 (1.9-4.0cm)Asc. Aorta cm IVSd0.9 (0.7-1.1cm)RV (D) (1.8-2.4cm) PWd0.9 (0.7-1.1cm) Mitral Valve MitralMitral Stenosis E wave0.83m/sMV Mean GR.mmHg A wave1.00m/sMV Peak GR.mmHg E/A ratio0.82D MVAcm2 DECEL [id number] 1/2 Tim[place] Aortic Valve Aortic ValveAortic Stenosis V11.07m/Tadeo Mean GR.5mmHg V21.63m/Tadeo Peak GR.11mmHg LVOT Diameter1.8 (1.8-2.4cm)Doppler AVA1.67cm2 Pulmonic Valve V20.93m/s Tricuspid Valve TR Velocity2.63m/s [id number] Other Information Technically limited study due to body habitus. Conclusion lvef 55% by visual estimate normal rv function biatrial enlargement no severe valve abnormalities noted
--- NOTE | 2025-05-03 18:29 | DVHINCON2 ---
Date Seen: May 03, 2025 Referring Physician LILIANA Abbott Reason for Consultation Bradycardia with frequent falls History of Present Illness This is a 79-year-old female who presented to the emergency room with a chief complaint of frequent fall injuries for the past two days. Per patient and at bedside, she rolled off the bed while asleep two days ago. At that time, she fell on the tile floor causing bilateral orbital trauma with hematomas. 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 Per , the patient's speech is abnormal and also reports a worsening unsteady gait and shakiness to her bilateral lower extremities. Per patient, she feels intermittent dizziness and some visual disturbances as well. Denies MANZO, LOC, chest pain, palpitations, diaphoresis, SOB, or syncopal events. She underwent a 12 lead electrocardiogram revealing a sinus bradycardia rhythm at 53 bpm with an associated first-degree atri oventricular block. She takes propranolol 160 mg q.d. Serial troponin levels are negative. Follows up in the outpatient setting with Dr. Simons for a history of unspecified cardiac murmur. 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 Past Medical History Past medical history reviewed. No other significant than mentioned above. Past Surgical History Cholecystectomy Hysterectomy Thyroidectomy Less breast lumpectomy Family History: Hypercholesterolemia Hypertension Family History Family history reviewed. Social History Denies the use of illicit drugs, alcohol, or tobacco use. Allergies: Coded Allergies: Codeine (Verified Allergy, Unknown, 05/03/25) Uncoded Allergies: PAPER TAPE (Allergy, Unknown, 09/21/21) Home Meds Reported Medications Propranolol HCl (Propranolol Hydrochloride) 160 Mg Cap, 160 MG PO DAILY 05/03/25 Amitriptyline HCl (Amitriptyline Hydrochlori) 100 Mg Tab, 1 TAB PO HS 05/03/25 Citalopram Hydrobromide (Citalopram Hydrobromide) 40 Mg Tab, 1 TAB PO DAILY 05/03/25 Propranolol HCl (Propranolol Hydrochloride) 20 Mg Tab, 20 MG PO BIDP PRN for SBP>150, TAB 09/22/21 [place]-3 Fatty Acids (Fish Oil) 1,000 Mg Cap, 1000 MG PO DAILY, CAP 09/22/21 Multiple Vitamin (Multivitamins) Tab, 1 TAB PO DAILY, #90 TAB 3 Refills 09/22/21 Aspirin (Aspirin) 325 Mg Tab, 325 MG PO DAILY for 30 Days, MG 09/22/21 Albuterol Sulfate (Proair Digihaler) 108 Mcg/Act Aer, 108 MCG IN, AER 09/22/21 Hydrochlorothiazide (Hydrochlorothiazide) 25 Mg Tab, 25 MG PO DAILY for 30 Days, MG 09/22/21 Losartan Potassium (Losartan Potassium) 50 Mg Tab, 50 MG PO DAILY for 30 Days, MG 09/22/21 Levothyroxine Sodium (Levothyroxine Sodium) 100 Mcg Tab, 100 MCG PO QAM for 30 Days, MCG 09/22/21 Simvastatin (Simvastatin) 20 Mg Tab, 20 MG PO DAILY for 30 Days 09/22/21 Discontinued Reported Medications Amlodipine Besylate (Amlodipine Besylate) 5 Mg Tab, 5 MG PO DAILY for 30 Days, MG 09/22/21 Amitriptyline Hcl (Amitriptyline Hcl) 25 Mg Tab, 100 MG PO HS for 30 Days, MG 09/22/21 Home Meds Home medications reviewed. Current Medications Current Medications Medications (Trade) Dose Ordered Sig/Low Route PRN Reason Start Time Stop Time Status Last Admin Acetaminophen/ Hydrocodone Bitart (Dowell 5/325MG Tab) 1 tab Q4HP PRN PO MODERATE PAIN (4-6 PAIN SCALE) 05/03/25 07:45 Ondansetron HCl (Zofran) 4 mg Q4HP PRN IV NAUSEA / VOMITING 05/03/25 07:45 Docusate Sodium (Colace Capsule) 100 mg BIDPRN PRN PO FOR CONSTIPATION 05/03/25 07:45 Acetaminophen (Tylenol Tablet) 650 mg Q6HP PRN PO PAIN SCALE 1-3 OR TEMP>100.4 05/03/25 07:45 Nitroglycerin (Ntrostat Sublingual) 0.4 mg Q5MINP PRN SL FOR CHEST PAIN 05/03/25 07:45 Morphine Sulfate 2 mg Q30M PRN IV FOR CHEST PAIN 05/03/25 07:45 Hydrochlorothiazide (hydroCHLOROthiazide TABLET) 25 mg DAILY PO 05/03/25 10:00 Levothyroxine Sodium (Synthroid Tablet) 100 mcg QAM PO 05/04/25 07:00 Losartan Potassium (Cozaar Tablet) 50 mg DAILY PO 05/03/25 10:00 Multivitamins (Mvi Tab) 1 tab DAILY PO 05/03/25 10:00 05/03/25 10:10 Patient Own Medication 20 mg DAILY PO 05/03/25 10:00 UNV Patient Own Medication 1 tab HS PO 05/03/25 22:00 UNV Patient Own Medication 1 tab DAILY PO 05/03/25 10:00 UNV Atorvastatin Calcium (Lipitor) 10 mg HS PO 05/03/25 22:00 05/03/25 10:45 DC Amitriptyline HCl (Elavil Tablet) 100 mg HS PO 05/03/25 22:00 Atorvastatin Calcium (Lipitor) 20 mg HS PO 05/03/25 10:45 05/03/25 12:18 Citalopram Hydrobromide (CeleXA TABLET) 40 mg DAILY PO 05/04/25 10:00 Meclizine HCl (Antivert Tablet) 25 mg Q8HPRN PRN PO DIZZINESS 05/03/25 12:45 Review of Systems Constitutional: No symptom reported Ears, Nose, & Throat: No symptom reported Eyes: No symptom reported Neurological: Speech disturbance, tremors, dizziness, visual disturbances Pulmonary/Respiratory: No symptom reported Cardiovascular: No symptom reported Gastrointestinal: No symptom reported Genitourinary: No symptom reported Musculoskeletal: No symptom reported Skin: No symptom reported Psychiatric: No symptom reported Endocrine: No symptom reported Hemotologic/Lymphatic: No symptom reported Vital Signs Vital Signs Date Time Temp Pulse Resp B/P (MAP) Pulse Ox O2 Delivery O2 Flow Rate FiO2 05/03/25 17:41 57 15 93 05/03/25 14:14 116/53 (74) 05/03/25 08:25 97.7 97.7 05/03/25 07:30 Room Air* 0 21 Physical Exam General Appearance: Cooperative. Well developed. Well nourished. In no acute distress Head Exam: Normal inspection Neck Exam: Normal inspection. Non-tender. Normal alignment Pulmonary/Respiratory: Chest non-tender. Clear bilateral breath sounds Cardiovascular/Chest: Regular rate and rhythm. S1, S2. No murmurs. No JVD. Peripheral Pulses: 2+ Radial (R). 2+ Radial (L). 2+ Pedal (R). 2+ Pedal (L) Abdominal Exam: Normal bowel sounds. Soft. Nontender. No hepatospenomegaly. No masses Ankle Exam: Negative ankle edema Lower extremities: Negative lower extremity edema Neuro/Mental Status: A&O x4. Coherent Thoughts/Psych: Normal thought pattern. Appropriate mood and affect. Good judgement and insight Appearance: In no acute distress Skin Exam: Bilateral orbital hematomas. Small left frontal scalp/forehead hematoma Labs/Diagnostic Data Labs Test 05/03/25 00:56 05/02/25 23:53 Range/Units Troponin I High Sensitivity 10 </=34 ng/L Triglycerides Level 142 < 150 mg/dL Cholesterol Level 186 < 200 mg/dL LDL Cholesterol 112 H < 100 mg/dL HDL Cholesterol 66 H 40-59 mg/dL White Blood Count 6.8 4.4-10.8 10^3/uL Red Blood Count 5.01 4.0-5.20 10^6/uL Hemoglobin 15.9 12.2-16.2 g/dL Hematocrit 47.0 H 36.0-46.0 % Mean Corpuscular Volume 93.8 80.0-100.0 fL Mean Corpuscular Hemoglobin 31.7 28.0-32.0 pg Mean Corpuscular Hemoglobin Concent 33.8 32.0-36.0 g/dL Red Cell Distribution Width 13.2 11.8-14.3 % Platelet Count 281 140-450 10^3/uL Mean Platelet Volume 8.2 6.9-10.8 fL Neutrophils (%) (Auto) 62.0 37.0-80.0 % Lymphocytes (%) (Auto) 25.3 10.0-50.0 % Monocytes (%) (Auto) 8.5 0.0-12.0 % Eosinophils (%) (Auto) 3.8 0.0-7.0 % Basophils (%) (Auto) 0.4 0.0-2.0 % Neutrophils # (Auto) 4.2 1.6-8.6 10 ^3/uL Lymphocytes # (Auto) 1.7 0.4-5.4 10 ^3/uL Monocytes # (Auto) 0.6 0-1.3 10 ^3/uL Eosinophils # (Auto) 0.3 0-0.8 10 ^3/uL Basophils # (Auto) 0 0-0.2 10 ^3/uL Nucleated Red Blood Cells 0.0 % Sodium Level 142 136-145 mmol/L Potassium Level 3.6 3.5-5.1 mmol/L Chloride Level 105 98-107 mmol/L Carbon Dioxide Level 28 20-31 mmol/L Anion Gap 9 5-15 Blood Urea Nitrogen 18 9-23 mg/dL Creatinine 0.81 0.550-1.02 mg/dL Glomerular Filtration Rate Calc 74 >90 mL/min BUN/Creatinine Ratio 22.2 H 10.0-20.0 Serum Glucose 112 H 74-106 mg/dL Calcium Level 9.7 8.7-10.4 mg/dL Assessment 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 Billingsley) Transthoracic echocardiogram revealed LVEF 55% with normal RV function and biatrial enlargement. The patient presents with sinus bradycardia and an associated first-degree atrioventricular block. Home medications includes propranolol hydrochloride which was uptitrated from 20 mg b.i.d. to 160 mg q.d. on 04/14/2025. Likely to be beta-rodo induced bradycardia. Avoid AV lisa blocking agents. Monitor for profound bradycardia, sinus pauses, or high-degree atrioventricular blocks and notify accordingly. In the setting of a heart rate < 30 bpm initiate atropine IV PRN, transcutaneous pacing, and/or dopamine if deemed necessary. Given clinical presentation, agree with further neurological work-up given history of CVAs. Obtain a bilateral carotid duplex to rule out internal carotid artery stenosis. Rest of plan and management per clinical course. Thank you for allowing us to participate in this patient's care. Please call if you have any questions or concerns. This medical document was created using an electronic medical record system with voice recognition software and computerized dictation system. Although this document has been carefully reviewed, there might still be some phonetic and typographical errors. Occasional wrong-word or ``sound-alike substitutions may have occurred due to the inherent limitations of voice recognition software. These areas are purely typographical due to imperfections of the software programs and do not reflect any compromise in the patient's medical care. Please read the chart carefully and recognize, using context, where these substitutions have occurred. Plan discussed with: Patient, Spouse, Other NYHA Physical activity limitations: NA Date of Service: May 03, 2025 Billing Provider: JESUS VALADEZ Cardiology Common Codes: [id number] INP/OBS CARE (High) JESUS VALADEZ May 03, 2025 18:28
--- NOTE | 2025-05-03 18:53 | DVH ---
Carotid Duplex Date: 05/03/2025 03:40 PM Clinical History: cva syncope workup; Comparison: CAROTID DUPLX W COLOR DOP on DOS: 09/22/21 Technique: Duplex Doppler evaluation of the extracranial carotid and vertebral arteries including col or Doppler and spectral/pulsed waveform analysis was performed. Findings: RIGHT SIDE: The peak systolic velocities are 58 cm/s in the distal CCA and 105 cm/s in the proximal ICA.The ICA/C CA ratio is less than 2. The external carotid artery is patent with peak systolic velocity of 85 cm/s proximally. There is appropriate antegrade flow in the right vertebral artery. LEFT SIDE: The peak systolic velocities are 72 cm/s in the distal CCA and 103 cm/s in the proximal ICA.. The ICA /CCA ratio is less than 2. The external carotid artery is patent with peak systolic velocity of 82 cm/s proximally. There is appropriate antegrade flow in the left vertebral artery. IMPRESSION: No hemodynamically significant stenosis noted in the right carotid system. No hemodynamically significant stenosis noted in the left carotid system. Reference: Radiology 2003; 229:[id number]
[2025-05-03] MEDS ORDERED: ATORVASTATIN 20 MG TAB PO SCH (22:00)
[2025-05-03] MEDS ORDERED: AMITRIPTYLINE HCL PO SCH (22:00)
[2025-05-03] MEDS: AMITRIPTYLINE HCL 25 MG TAB PO SCH (22:26)
--- NOTE | 2025-05-03 23:44 | DVH ---
EXAM: CT HEAD WITHOUT CONTRAST INDICATION: fall TECHNIQUE: CT of the head without intravenous contrast. Radiation Dose : 1. Head: CT Dose: CTDI volume is 53.99 mGy. Dose-length product is 863.9 mGy*cm The dose indicators for CT are the volume Computed Tomography (CT) Dose Index (CTDIvol) and the Dose Length Product (DLP), and are measured in units of mGy and mGy-cm, respectively. These indicators are not patient dose, but values generated from the CT scanner acquisition factors. The report includes radiation exposure data for exposures received during this examination. COMPARISON: CT HEAD WITHOUT CONTRAST on DOS: 05/03/25, CT HEAD WITHOUT CONTRAST on DOS: 05/02/25, CT HE AD WITHOUT CONTRAST on DOS: 10/04/23, HEAD WITHOUT CONTRAST on DOS: 09/21/21 FINDINGS: There is no evidence of acute intracranial hemorrhage, extra-axial collection, mass effect, midline s hift, herniation or hydrocephalus. Increased prominence of the ventricles, sulci and cisterns is consistent with the sequelae of atrophi c cortical volume loss. The desai-white differentiation is intact. Moderate diffuse confluent periventricular and subcortical white matter hypoattenuation is nonspecifi c but may be related to small vessel ischemic disease. The visualized paranasal sinuses and mastoid air cells are clear. The surrounding soft tissues and osseous structures are unremarkable. IMPRESSION: 1. No acute intracranial abnormality. 2. Chronic sequelae of microvascular disease and atrophic cortical volume loss. Radiation optimization: All CT scans at this facility use at least one of these dose optimization sulaiman hniques: automated exposure control mA and/or kV adjustment per patient size (includes targeted exam s where dose is matched to clinical indication) or iterative reconstruction.
[2025-05-04] VITALS (10 sets, daily range): BP systolic 143–159; BP diastolic 45–104; PULSE 56–81; RESP 17–19; TEMP 97.4–98.6; O2SAT 93–98
[2025-05-04] MEDS: LEVOTHYROXINE SODIUM 100 MCG TAB PO SCH (05:47)
[2025-05-04 06:59] LABS: Hematocrit 40.0 % (36.0-46.0); Hemoglobin 13.6 g/dL (12.2-16.2); Mean Corpuscular Hemoglobin 32.0 pg (28.0-32.0); Mean Corpuscular Volume 93.9 fL (80.0-100.0); Nucleated Red Blood Cells % 0.1 %
[2025-05-04 07:12] LABS: Alanine Aminotransferase 22 U/L (7-40); Albumin 3.9 g/dL (3.2-4.8); Alkaline Phosphatase 69 U/L (46-116); Anion Gap 8 (5-15); BUN/Creatinine Ratio 26.2 (10.0-20.0); Bilirubin, Total 1.2 mg/dL (0.2-1.0); Blood Urea Nitrogen 16 mg/dL (9-23); Calcium 9.5 mg/dL (8.7-10.4); Carbon Dioxide 28 mmol/L (20-31); Chloride 106 mmol/L (98-107); Glucose 96 mg/dL (74-106); Sodium 142 mmol/L (136-145); Total Protein 5.8 g/dL (5.7-8.2)
[2025-05-04 07:15] LABS: Potassium 3.3 mmol/L (3.5-5.1)
[2025-05-04] MEDS: CITALOPRAM HYDROBR 20 MG TAB PO SCH (09:04)
[2025-05-04] MEDS ORDERED: hydrALAZINE HCL 20 MG/ML VL IV PRN (10:45)
--- NOTE | 2025-05-04 10:45 | DVHPN2 ---
Progress Note Date Seen: May 04, 2025 Medical Necessity Reason Pt with a Central, PICC or Fol: No Subjective Patient reports: No new complaints Review of Systems: HEENT:Normal, CVS:Normal, RESPIRATORY:Normal, GI:Normal, :Normal, MSK:Normal, NEURO:Normal Objective vital signs Vital Sign Date Time Temp Pulse Resp B/P (MAP) Pulse Ox O2 Delivery O2 Flow Rate FiO2 05/04/25 09:05 98.0 67 18 151/67 (95) 94 98.0 05/04/25 07:45 Room Air* 0 21 Total Intake and Output 05/03/25 05/03/25 05/04/25 15:00 23:00 07:00 Intake Total 350 ml Output Total 450 ml Balance -100 ml medications Current Medications Medications Dose Ordered Sig/Olw Route Start Time Stop Time Status Last Admin Dose Admin Acetaminophen/ Hydrocodone Bitart 1 tab Q4HP PRN PO 05/03/25 07:45 Ondansetron HCl 4 mg Q4HP PRN IV 05/03/25 07:45 Docusate Sodium 100 mg BIDPRN PRN PO 05/03/25 07:45 Acetaminophen 650 mg Q6HP PRN PO 05/03/25 07:45 Nitroglycerin 0.4 mg Q5MINP PRN SL 05/03/25 07:45 Morphine Sulfate 2 mg Q30M PRN IV 05/03/25 07:45 Hydrochlorothiazide 25 mg DAILY PO 05/03/25 10:00 05/04/25 09:05 25 MG Levothyroxine Sodium 100 mcg QAM PO 05/04/25 07:00 05/04/25 05:47 100 MCG Multivitamins 1 tab DAILY PO 05/03/25 10:00 05/04/25 09:04 1 TAB Patient Own Medication 20 mg DAILY PO 05/03/25 10:00 UNV Patient Own Medication 1 tab HS PO 05/03/25 22:00 UNV Patient Own Medication 1 tab DAILY PO 05/03/25 10:00 UNV Amitriptyline HCl 100 mg HS PO 05/03/25 22:00 05/03/25 22:26 100 MG Atorvastatin Calcium 20 mg HS PO 05/03/25 10:45 05/03/25 22:26 20 MG Citalopram Hydrobromide 40 mg DAILY PO 05/04/25 10:00 05/04/25 09:04 40 MG Meclizine HCl 25 mg Q8HPRN PRN PO 05/03/25 12:45 Losartan Potassium 100 mg DAILY PO 05/05/25 10:00 UNV Examination: GENERAL:Normal, HEENT:Normal, NECK:Normal, LUNGS:Normal, CVS:Normal, ABDOMEN:Normal, MSK:Normal, MSK:Abnormal (facial bruises), SKIN:Normal, NEURO:Normal, :Normal laboratory and microbiology Laboratory Tests 05/04/25 06:30 Test 05/04/25 06:30 Range/Units Serum Glucose 96 74-106 mg/dL Problem List/Assessment/Plan Problem List/Assessment/Plan #1 s/p fall with facial bruises #2 dizziness ? acute cva ? autonomic failure: check brain mri, orthostatics #3 htn #4 h/o cva #5 hypothyroidism #6 hyperlipidemia #7 bradycardia: dc beta rodo advance care planning- full code- time spent 18mins Plan discussed with: Patient My Orders My Orders Orders - TYE MCMAHAN MD Procedure Category Date Status Time Urinalysis LAB 05/03/25 Uncollected 12:43 Pt Request For Service PT 05/03/25 Logged 12:43 Meclizine Tablet PHA 05/03/25 In Process (Antivert Tablet) 12:45 Orthostatic Vital ORDERS 05/03/25 Transmitted Signs 12:[address] 05/03/25 Resulted 14:51 Losartan Tablet PHA 05/05/25 Logged (Cozaar Tablet) 10:00 Potassium Er Tablet PHA 05/04/25 Logged (Klor-Con Tablet) 10:45 Basic Metabolic Panel LAB 05/05/25 Verified 06:00 Date of Service: May 04, 2025 Billing Provider: TYE MCMAHAN MD Common Visit Codes: [id number] INP/OBS CARE(HIGH) TYE MCMAHAN MD May 04, 2025 10:44
--- NOTE | 2025-05-04 10:56 | DVH ---
PROCEDURE: MRI BRAIN HEAD WO CONTRAST INDICATION: cva EXAM DATE: 05/04/2025 10:05 AM COMPARISON: None TECHNIQUE: MRI of the brain without intravenous contrast. FINDINGS: Diffusion weighted images of the brain demonstrate no evidence of acute infarction. There is no evidence of acute intracranial hemorrhage, extra-axial collection, mass effect, midline s hift, herniation or hydrocephalus. The ventricles, sulci and cisterns appear age appropriate. Moderate changes of chronic microvascular ischemic disease. There are no signal abnormalities on the susceptibility weighted sequences. The major vascular flow voids are present. The visualized paranasal sinuses and mastoid air cells are clear. The surrounding soft tissues and o sseous structures are unremarkable. IMPRESSION: 1. No evidence of acute infarction, intracranial hemorrhage, mass effect or hydrocephalus. Moderate c hanges of chronic microvascular ischemic disease. HS:Y
--- NOTE | 2025-05-04 12:50 | DVHPN2 ---
Progress Note - Dictate Date Seen: May 04, 2025 Medical Necessity Reason Pt with a Central, PICC or Fol: No Subjective Ms. Macias is a 79 years old right-handed female with a history of hypertension, she came to the hospital on 05/02/2025 with a chief complaint of w eakness and forehead bruising. I saw on 09/22/2021 for TIA/right leg weakness, shaky feeling. I have seen and examined the patient, discussed with her nurse, she is doing fine, no new company, alert and oriented to person, place, she knows year and month The bruise in her head and bilateral periodic region a more obvious than yesterday No new complaints CBC, 05/02/2025: Unremarkable BMP 05/02/2025: Unremarkable TG/HDL/LDL/HDL, 10/12/21: 84/159/70/71, 05/03/2025: 142/183/112/66 Carotid Doppler, 09/22/2021: Unremarkable Echocardiogram, 05/03/2025: lvef 55% by visual estimate normal rv function biatrial enlargement CT head, 09/21/2021: 1. No acute intracranial hemorrhage, mass effect or midline shift. 2. Mild generalized atrophy. Mild microangiopathic ischemic change. 3. Intracranial atherosclerosis CT head, 05/02/2025: No acute intracranial findings. Small left frontal scalp contusion MRI head, 04/04/2025: No evidence of acute infarction, intracranial hemorrhage, mass effect or hydrocephalus. Moderate changes of chronic microvascular ischemic disease. vital signs Vital Sign Date Time Temp Pulse Resp B/P (MAP) Pulse Ox O2 Delivery O2 Flow Rate FiO2 05/04/25 09:05 98.0 67 18 151/67 (95) 94 98.0 05/04/25 07:45 Room Air* 0 21 Total Intake and Output 05/03/25 05/03/25 05/04/25 15:00 23:00 07:00 Intake Total 350 ml Output Total 450 ml Balance -100 ml medications Current Medications Medications Dose Ordered Sig/Low Route Start Time Stop Time Status Last Admin Dose Admin Acetaminophen/ Hydrocodone Bitart 1 tab Q4HP PRN PO 05/03/25 07:45 Ondansetron HCl 4 mg Q4HP PRN IV 05/03/25 07:45 Docusate Sodium 100 mg BIDPRN PRN PO 05/03/25 07:45 Acetaminophen 650 mg Q6HP PRN PO 05/03/25 07:45 Nitroglycerin 0.4 mg Q5MINP PRN SL 05/03/25 07:45 Morphine Sulfate 2 mg Q30M PRN IV 05/03/25 07:45 Hydrochlorothiazide 25 mg DAILY PO 05/03/25 10:00 05/04/25 09:05 25 MG Levothyroxine Sodium 100 mcg QAM PO 05/04/25 07:00 05/04/25 05:47 100 MCG Multivitamins 1 tab DAILY PO 05/03/25 10:00 05/04/25 09:04 1 TAB Patient Own Medication 20 mg DAILY PO 05/03/25 10:00 UNV Patient Own Medication 1 tab HS PO 05/03/25 22:00 UNV Patient Own Medication 1 tab DAILY PO 05/03/25 10:00 UNV Amitriptyline HCl 100 mg HS PO 05/03/25 22:00 05/03/25 22:26 100 MG Atorvastatin Calcium 20 mg HS PO 05/03/25 10:45 05/03/25 22:26 20 MG Citalopram Hydrobromide 40 mg DAILY PO 05/04/25 10:00 05/04/25 09:04 40 MG Meclizine HCl 25 mg Q8HPRN PRN PO 05/03/25 12:45 Losartan Potassium 100 mg DAILY PO 05/05/25 10:00 Hydralazine HCl 10 mg Q6HP PRN IV 05/04/25 10:45 objective General: the patient is well developed and nourished. No acute distress. HEENT: A big bruise in the left frontal head region, bilateral periorbital ecchymosis with the right-sided worse, neck is supple, no carotid bruits. No mass. MENTAL STATUS: Subjective SPEECH, LANGUAGE, HIGHER CORTICAL FUNCTION: no aphasia or dysathria. CRANIAL NERVES: Pupils are equal, round and reactive. EOMs full and conjugate. No nystagmus. Facial sensation intact in all three divisions bilaterally. Mandibular strength intact. Facial muscles symmetrical and strength intact. SENSATION: Sensation to touch and pinprick is normal. MOTOR: Normal tone in the upper and lower extremity. Normal muscle bulk. No fasciculations. Mild bilateral dynamic tremors in the hands. Muscle strength of the major groups in the extremities is 5/5. REFLEXES: Deep tendon reflexes normal and symmetrical. No pathological reflexes. CEREBELLAR/COORDINATION: Finger to nose and heel to cooper are normal bilaterally. GAIT/STATION: deferred laboratory and microbiology Laboratory Tests 05/04/25 06:30 Test 05/04/25 06:30 Range/Units Serum Glucose 96 74-106 mg/dL Problem List Multiple bruises in the head, secondary to falls Speech disturbance/? Expressive aphasia since 05/02/2025, to rule out acute stroke or other pathology History of acute stroke syndrome, with negative MRI scan Basilar artery migraine Essential tremors Assessment/Plan Monitoring Support treatment Telemetry Aspirin 325 mg daily (home medication) Lipitor 20 mg daily Amitriptyline 100 mg at bedtime (home medication) Inderal 160 mg daily (home medication) Avoid the triptan and ergot agent for headache attack Follow up with her doctors on discharge TOÑO This medical document was created using an electronic medical record system with [employer] dictation system. Although this document has been carefully reviewed, there may still be some phonetic and typographical errors. These areas are purely typographical due to imperfections of the software programs, and do not reflect any compromise in the patient's medical care. Prognosis Poor Plan discussed with: Patient, Other WING DOWNEY MD May 04, 2025 12:50
[2025-05-04] MEDS: POTASSIUM CHL 20 Meq TABLET PO ONE (13:25)
--- NOTE | 2025-05-04 18:40 | DVHEEG2 ---
Neurology EEG Procedural Note Procedural Note EXAM DATE: 05/04/2025 REFERRING DOCTOR: Dr. Downey TECHNIQUE: Eighteen channels of EEG, 2 channels of EOG, and 1 channel of EKG were recorded using the International 10/20 system. CLINICAL DATA: The patient was referred for an EEG evaluation for the evidence of seizure disorder. MEDICATIONS: See the chart BACKGROUND ACTIVITY: While the patient was awake, the background activity consisted of well regulated []Hz rhythmic waveforms, symmetrically distributed over both posterior quadrants and was reactive to eye opening. ACTIVATION: Hyperventilation: Not done Photic Stimulation: No photic convulsive response Sleep: Noticed IMPRESSION: This is a normal EEG. No focal, lateralized, or epileptiform features are noted. If clinically indicated to rule out a seizure disorder, recommend repeat EEG with sleep deprivation. The EKG channel showed a regular heart rate of 60/min[place] [address]. WING DOWNEY MD May 04, 2025 18:40
[2025-05-04] MEDS: diphenhdrAMINE HCL 50 MG/1 ML VL ONE (20:02)
[2025-05-04] MEDS: diphenhdrAMINE HCL 50 MG/1 ML VL IV PRN (21:52)
[2025-05-05] VITALS (8 sets, daily range): BP systolic 141–183; BP diastolic 56–73; PULSE 63–95; RESP 16–20; TEMP 97.6–98.3; O2SAT 70–95
[2025-05-05 06:42] LABS: Anion Gap 8 (5-15); Calcium 8.8 mg/dL (8.7-10.4); Carbon Dioxide 26 mmol/L (20-31); Potassium 3.6 mmol/L (3.5-5.1); Sodium 142 mmol/L (136-145)
[2025-05-05 06:48] LABS: BUN/Creatinine Ratio 24.0 (10.0-20.0); Blood Urea Nitrogen 12 mg/dL (9-23); Glucose 101 mg/dL (74-106)
[2025-05-05 06:54] LABS: Chloride 108 mmol/L (98-107)
[2025-05-05] MEDS: LOSARTAN POTASSIUM 50 MG TAB PO SCH (08:52)
--- NOTE | 2025-05-05 08:53 | ECG ---
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
--- NOTE | 2025-05-05 09:59 | DVHPN2 ---
Progress Note - Dictate Date Seen: May 05, 2025 Medical Necessity Reason Pt with a Central, PICC or Fol: No Subjective Ms. Macias is a 79 years old right-handed female with a history of hypertension, she came to the hospital on 05/02/2025 with a chief complaint of w eakness and forehead bruising. I saw on 09/22/2021 for TIA/right leg weakness, shaky feeling. I have seen and examined the patient, discussed with her nurse, she is doing fine, alert, oriented x3, no new company, but something happened last night According to her nurse her , in the evening on 05/04/2025, the patient was very confused, combative, she sought patient was stealing from her. She has never had similar confusion at home According to her , she has a progressive very mild intermittent short- term memory difficulty for 2-3 years, with long-term memory preserved, she is still pay her bills using her computer. Her mother had dementia CBC, 05/02/2025: Unremarkable BMP 05/02/2025: Unremarkable TG/HDL/LDL/HDL, 10/12/21: 84/159/70/71, 05/03/2025: 142/183/112/66 TSH, 05/04/2025: 2.59 Carotid Doppler, 09/22/2021: Unremarkable Echocardiogram, 05/03/2025: lvef 55% by visual estimate normal rv function biatrial enlargement CT head, 09/21/2021: 1. No acute intracranial hemorrhage, mass effect or midline shift. 2. Mild generalized atrophy. Mild microangiopathic ischemic change. 3. Intracranial atherosclerosis CT head, 05/02/2025: No acute intracranial findings. Small left frontal scalp contusion MRI head, 05/04/2025: No evidence of acute infarction, intracranial hemorrhage, mass effect or hydrocephalus. Moderate changes of chronic microvascular ischemic disease vital signs Vital Sign Date Time Temp Pulse Resp B/P (MAP) Pulse Ox O2 Delivery O2 Flow Rate FiO2 05/05/25 08:52 144/67 05/05/25 08:47 97.8 95 70 97.8 05/05/25 07:44 18 Room Air* 0 21 Total Intake and Output 05/04/25 05/04/25 05/05/25 15:00 23:00 07:00 Intake Total 760 ml 120 ml Balance 760 ml 120 ml medications Current Medications Medications Dose Ordered Sig/Low Route Start Time Stop Time Status Last Admin Dose Admin Acetaminophen/ Hydrocodone Bitart 1 tab Q4HP PRN PO 05/03/25 07:45 Ondansetron HCl 4 mg Q4HP PRN IV 05/03/25 07:45 Docusate Sodium 100 mg BIDPRN PRN PO 05/03/25 07:45 Acetaminophen 650 mg Q6HP PRN PO 05/03/25 07:45 Nitroglycerin 0.4 mg Q5MINP PRN SL 05/03/25 07:45 Morphine Sulfate 2 mg Q30M PRN IV 05/03/25 07:45 Hydrochlorothiazide 25 mg DAILY PO 05/03/25 10:00 05/05/25 08:51 25 MG Levothyroxine Sodium 100 mcg QAM PO 05/04/25 07:00 05/05/25 06:01 100 MCG Multivitamins 1 tab DAILY PO 05/03/25 10:00 05/05/25 08:51 1 TAB Patient Own Medication 20 mg DAILY PO 05/03/25 10:00 UNV Patient Own Medication 1 tab HS PO 05/03/25 22:00 UNV Patient Own Medication 1 tab DAILY PO 05/03/25 10:00 UNV Amitriptyline HCl 100 mg HS PO 05/03/25 22:00 05/04/25 22:35 100 MG Atorvastatin Calcium 20 mg HS PO 05/03/25 10:45 05/04/25 22:35 20 MG Citalopram Hydrobromide 40 mg DAILY PO 05/04/25 10:00 05/05/25 08:51 40 MG Meclizine HCl 25 mg Q8HPRN PRN PO 05/03/25 12:45 Losartan Potassium 100 mg DAILY PO 05/05/25 10:00 05/05/25 08:52 100 MG Hydralazine HCl 10 mg Q6HP PRN IV 05/04/25 10:45 Diphenhydramine HCl 25 mg Q4HP PRN IV 05/04/25 20:30 05/04/25 21:52 25 MG objective General: the patient is well developed and nourished. No acute distress. HEENT: A big bruise in the left frontal head region, bilateral periorbital ecchymosis with the right-sided worse, neck is supple, no carotid bruits. No mass. MENTAL STATUS: Subjective SPEECH, LANGUAGE, HIGHER CORTICAL FUNCTION: no aphasia or dysathria. CRANIAL NERVES: Pupils are equal, round and reactive. EOMs full and conjugate. No nystagmus. Facial sensation intact in all three divisions bilaterally. Mandibular strength intact. Facial muscles symmetrical and strength intact. SENSATION: Sensation to touch and pinprick is normal. MOTOR: Normal tone in the upper and lower extremity. Normal muscle bulk. No fasciculations. Mild bilateral dynamic tremors in the hands. Muscle strength of the major groups in the extremities is 5/5. REFLEXES: Deep tendon reflexes normal and symmetrical. No pathological reflexes. CEREBELLAR/COORDINATION: Finger to nose and heel to cooper are normal bilaterally. GAIT/STATION: deferred laboratory and microbiology Laboratory Tests 05/05/25 06:05 05/04/25 06:30 Test 05/05/25 06:05 Range/Units Serum Glucose 101 74-106 mg/dL Problem List Multiple bruises in the head, secondary to falls Speech disturbance/? Expressive aphasia since 05/02/2025, fine now History of acute stroke syndrome, with negative MRI scan Basilar artery migraine Essential tremors Metabolic encephalopathy in the evening on 05/04/2025 Mild cognitive impairment Family history of dementia Assessment/Plan Monitoring Support treatment Telemetry Vitamin B12, folic acid Aspirin 325 mg daily (home medication) Lipitor 20 mg daily Amitriptyline 100 mg at bedtime (home medication) Inderal 160 mg daily (home medication) Further address her dementia as outpatient Avoid the triptan and ergot agent for headache attack Follow up with her doctors on discharge TOÑO This medical document was created using an electronic medical record system with [employer] dictation system. Although this document has been carefully reviewed, there may still be some phonetic and typographical errors. These areas are purely typographical due to imperfections of the software programs, and do not reflect any compromise in the patient's medical care. Prognosis poor Plan discussed with: Patient, Spouse, Other Total Time (mins): 35 WING DOWNEY MD May 05, 2025 09:59
--- NOTE | 2025-05-05 11:00 | DVHPN2 ---
Progress Note Date Seen: May 05, 2025 Medical Necessity Reason Pt with a Central, PICC or Fol: No Subjective Patient reports: No new complaints Review of Systems: HEENT:Normal, CVS:Normal, RESPIRATORY:Normal, GI:Normal, :Normal, MSK:Normal, NEURO:Normal Objective vital signs Vital Sign Date Time Temp Pulse Resp B/P (MAP) Pulse Ox O2 Delivery O2 Flow Rate FiO2 05/05/25 08:52 144/67 05/05/25 08:47 97.8 95 70 97.8 05/05/25 07:44 18 Room Air* 0 21 Total Intake and Output 05/04/25 05/04/25 05/05/25 15:00 23:00 07:00 Intake Total 760 ml 120 ml Balance 760 ml 120 ml medications Current Medications Medications Dose Ordered Sig/Low Route Start Time Stop Time Status Last Admin Dose Admin Acetaminophen/ Hydrocodone Bitart 1 tab Q4HP PRN PO 05/03/25 07:45 Ondansetron HCl 4 mg Q4HP PRN IV 05/03/25 07:45 Docusate Sodium 100 mg BIDPRN PRN PO 05/03/25 07:45 Acetaminophen 650 mg Q6HP PRN PO 05/03/25 07:45 Nitroglycerin 0.4 mg Q5MINP PRN SL 05/03/25 07:45 Morphine Sulfate 2 mg Q30M PRN IV 05/03/25 07:45 Hydrochlorothiazide 25 mg DAILY PO 05/03/25 10:00 05/05/25 08:51 25 MG Levothyroxine Sodium 100 mcg QAM PO 05/04/25 07:00 05/05/25 06:01 100 MCG Multivitamins 1 tab DAILY PO 05/03/25 10:00 05/05/25 08:51 1 TAB Patient Own Medication 20 mg DAILY PO 05/03/25 10:00 UNV Patient Own Medication 1 tab HS PO 05/03/25 22:00 UNV Patient Own Medication 1 tab DAILY PO 05/03/25 10:00 UNV Amitriptyline HCl 100 mg HS PO 05/03/25 22:00 05/04/25 22:35 100 MG Atorvastatin Calcium 20 mg HS PO 05/03/25 10:45 05/04/25 22:35 20 MG Citalopram Hydrobromide 40 mg DAILY PO 05/04/25 10:00 05/05/25 08:51 40 MG Meclizine HCl 25 mg Q8HPRN PRN PO 05/03/25 12:45 Losartan Potassium 100 mg DAILY PO 05/05/25 10:00 05/05/25 08:52 100 MG Hydralazine HCl 10 mg Q6HP PRN IV 05/04/25 10:45 Diphenhydramine HCl 25 mg Q4HP PRN IV 05/04/25 20:30 05/04/25 21:52 25 MG Examination: GENERAL:Normal, HEENT:Normal, NECK:Normal, LUNGS:Normal, CVS:Normal, ABDOMEN:Normal, MSK:Normal, MSK:Abnormal (facial bruises), SKIN:Normal, NEURO:Normal, :Normal laboratory and microbiology Laboratory Tests 05/05/25 06:05 05/04/25 06:30 Test 05/05/25 06:05 Range/Units Serum Glucose 101 74-106 mg/dL Problem List/Assessment/Plan Problem List/Assessment/Plan #1 s/p fall with facial bruises #2 dizziness ? acute cva ? autonomic failure: check brain mri, orthostatics #3 htn #4 h/o cva #5 hypothyroidism #6 hyperlipidemia #7 bradycardia: dc beta rodo #8 ? dementia ?encephalopathy- metabolic advance care planning- full code- time spent 18mins Plan discussed with: Patient, Spouse Date of Service: May 05, 2025 Billing Provider: TYE MCMAHAN MD Common Visit Codes: [id number] INP/OBS CARE(HIGH) TYE MCMAHAN MD May 05, 2025 11:00
[2025-05-05 11:20] LABS: Urine Protein, UAD Negative (Negative)
[2025-05-05 11:42] LABS: Free T4 (Free Thyroxine) 1.50 ng/dL (0.89-1.76)
--- NOTE | 2025-05-05 12:52 | DVHPN2 ---
Consult Progress Note Date Seen: May 05, 2025 Subjective Review of Systems: CVS:Normal, RESPIRATORY:Normal, NEURO:Normal Objective vital signs Vital Sign Date Time Temp Pulse Resp B/P (MAP) Pulse Ox O2 Delivery O2 Flow Rate FiO2 05/05/25 08:52 144/67 05/05/25 08:47 97.8 95 70 97.8 05/05/25 07:44 18 Room Air* 0 21 Total Intake and Output 05/04/25 05/04/25 05/05/25 15:00 23:00 07:00 Intake Total 760 ml 120 ml Balance 760 ml 120 ml medications Current Medications Medications Dose Ordered Sig/Low Route Start Time Stop Time Status Last Admin Dose Admin Acetaminophen/ Hydrocodone Bitart 1 tab Q4HP PRN PO 05/03/25 07:45 Ondansetron HCl 4 mg Q4HP PRN IV 05/03/25 07:45 Docusate Sodium 100 mg BIDPRN PRN PO 05/03/25 07:45 Acetaminophen 650 mg Q6HP PRN PO 05/03/25 07:45 Nitroglycerin 0.4 mg Q5MINP PRN SL 05/03/25 07:45 Morphine Sulfate 2 mg Q30M PRN IV 05/03/25 07:45 Hydrochlorothiazide 25 mg DAILY PO 05/03/25 10:00 05/05/25 08:51 25 MG Levothyroxine Sodium 100 mcg QAM PO 05/04/25 07:00 05/05/25 06:01 100 MCG Multivitamins 1 tab DAILY PO 05/03/25 10:00 05/05/25 08:51 1 TAB Patient Own Medication 20 mg DAILY PO 05/03/25 10:00 UNV Patient Own Medication 1 tab HS PO 05/03/25 22:00 UNV Patient Own Medication 1 tab DAILY PO 05/03/25 10:00 UNV Amitriptyline HCl 100 mg HS PO 05/03/25 22:00 05/04/25 22:35 100 MG Atorvastatin Calcium 20 mg HS PO 05/03/25 10:45 05/04/25 22:35 20 MG Citalopram Hydrobromide 40 mg DAILY PO 05/04/25 10:00 05/05/25 08:51 40 MG Meclizine HCl 25 mg Q8HPRN PRN PO 05/03/25 12:45 Losartan Potassium 100 mg DAILY PO 05/05/25 10:00 05/05/25 08:52 100 MG Hydralazine HCl 10 mg Q6HP PRN IV 05/04/25 10:45 Examination: LUNGS:Normal, CVS:Normal (teletypesetter monitor review lowest HR 58 bpm, NSR), SKIN:Abnormal (Bilateral orbital hematomas), NEURO:Normal laboratory and microbiology Laboratory Tests 05/05/25 06:05 05/04/25 06:30 Test 05/05/25 06:05 Range/Units Serum Glucose 101 74-106 mg/dL Problem List/Assessment/Plan Problem List/Assessment/Plan 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 Billingsley) Transthoracic echocardiogram revealed LVEF 55% with normal RV function and biatrial enlargement. The patient presents with sinus bradycardia and an associated first-degree atrioventricular block. Home medications includes propranolol hydrochloride which was uptitrated from 20 mg b.i.d. to 160 mg q.d. on 04/14/2025. Likely to be beta-rodo induced bradycardia. Avoid AV lisa blocking agents. Lowest HR on manager cardiac cath overnight is 58 bpm. Orthostatic VS are negative. Recommend an outpatient event monitor to rule out tachy/bradyarrhythmias for which patient has been scheduled on 05/20/[address] Restrepo. There is no further cardiac work-up indicated at this time. Kindly call if in need to re-consul. Thank you for allowing us to participate in this patient's care. This medical document was created using an electronic medical record system with voice recognition software and computerized dictation system. Although this document has been carefully reviewed, there might still be some phonetic and typographical errors. Occasional wrong-word or ``sound-alike substitutions may have occurred due to the inherent limitations of voice recognition software. These areas are purely typographical due to imperfections of the software programs and do not reflect any compromise in the patient's medical care. Please read the chart carefully and recognize, using context, where these substitutions have occurred. Plan discussed with: Patient, Spouse, Daughter, Son Date of Service: May 05, 2025 Billing Provider: JESUS VALADEZ [employer] COUNTERPERSON Cardiology Common Codes: [id number] HOSP CARE(JESUS Watts PARTS COUNTERPERSON May 05, 2025 12:52
[2025-05-05] MEDS ORDERED: LORazepam 2MG/ML-1ML VIAL IV PRN (15:15)
[2025-05-06 05:00] VITALS: BP 146/59; PULSE 75; RESP 18; TEMP 97.8; O2SAT 93
[2025-05-06 07:56] VITALS: RESP 18
[2025-05-06 08:00] VITALS: PULSE 76
--- NOTE | 2025-05-06 10:52 | DVHPN2 ---
Progress Note - Dictate Date Seen: May 06, 2025 Medical Necessity Reason Pt with a Central, PICC or Fol: No Subjective Ms. Macias is a 79 years old right-handed female with a history of hypertension, she came to the hospital on 05/02/2025 with a chief complaint of w eakness and forehead bruising. I saw on 09/22/2021 for TIA/right leg weakness, shaky feeling. I have seen and examined the patient, discussed with her nurse, her in the room, she is doing better today, alert, oriented x3, no new company According to her nurse her , in the evening on 05/04/2025, the patient was very confused, combative, she sought patient was stealing from her. She has never had similar confusion at home According to her , she has a progressive very mild intermittent short- term memory difficulty for 2-3 years, with long-term memory preserved, she is still pay her bills using her computer. Her mother had dementia CBC, 05/02/2025: Unremarkable BMP 05/02/2025: Unremarkable TG/HDL/LDL/HDL, 10/12/21: 84/159/70/71, 05/03/2025: 142/183/112/66 Vitamin B12, 05/05/2025: 4000 Folic acid, 05/05/2025: 38.62 TSH, 05/04/2025: 2.59 FT4, 05/05/2025: 1.5 Carotid Doppler, 09/22/2021: Unremarkable Echocardiogram, 05/03/2025: lvef 55% by visual estimate normal rv function biatrial enlargement CT head, 09/21/2021: 1. No acute intracranial hemorrhage, mass effect or midline shift. 2. Mild generalized atrophy. Mild microangiopathic ischemic change. 3. Intracranial atherosclerosis CT head, 05/02/2025: No acute intracranial findings. Small left frontal scalp contusion MRI head, 05/04/2025: No evidence of acute infarction, intracranial hemorrhage, mass effect or hydrocephalus. Moderate changes of chronic microvascular ischemic disease vital signs Vital Sign Date Time Temp Pulse Resp B/P (MAP) Pulse Ox O2 Delivery O2 Flow Rate FiO2 05/06/25 08:00 76 05/06/25 07:56 18 Room Air* 0 21 05/06/25 05:00 97.8 146/59 (88) 93 97.8 Total Intake and Output 05/05/25 05/05/25 05/06/25 15:00 23:00 07:00 Intake Total 475 ml 240 ml Output Total 600 ml Balance -125 ml 240 ml medications Current Medications Medications Dose Ordered Sig/Low Route Start Time Stop Time Status Last Admin Dose Admin Acetaminophen/ Hydrocodone Bitart 1 tab Q4HP PRN PO 05/03/25 07:45 Ondansetron HCl 4 mg Q4HP PRN IV 05/03/25 07:45 Docusate Sodium 100 mg BIDPRN PRN PO 05/03/25 07:45 Acetaminophen 650 mg Q6HP PRN PO 05/03/25 07:45 Nitroglycerin 0.4 mg Q5MINP PRN SL 05/03/25 07:45 Morphine Sulfate 2 mg Q30M PRN IV 05/03/25 07:45 Hydrochlorothiazide 25 mg DAILY PO 05/03/25 10:00 05/05/25 08:51 25 MG Levothyroxine Sodium 100 mcg QAM PO 05/04/25 07:00 05/06/25 06:26 100 MCG Multivitamins 1 tab DAILY PO 05/03/25 10:00 05/05/25 08:51 1 TAB Patient Own Medication 20 mg DAILY PO 05/03/25 10:00 UNV Patient Own Medication 1 tab HS PO 05/03/25 22:00 UNV Patient Own Medication 1 tab DAILY PO 05/03/25 10:00 UNV Amitriptyline HCl 100 mg HS PO 05/03/25 22:00 05/05/25 21:35 100 MG Atorvastatin Calcium 20 mg HS PO 05/03/25 10:45 05/05/25 21:35 20 MG Citalopram Hydrobromide 40 mg DAILY PO 05/04/25 10:00 05/05/25 08:51 40 MG Meclizine HCl 25 mg Q8HPRN PRN PO 05/03/25 12:45 Losartan Potassium 100 mg DAILY PO 05/05/25 10:00 05/05/25 08:52 100 MG Hydralazine HCl 10 mg Q6HP PRN IV 05/04/25 10:45 Lorazepam 0.5 mg Q6HP PRN IV 05/05/25 15:15 objective General: the patient is well developed and nourished. No acute distress. HEENT: A big bruise in the left frontal head region, bilateral periorbital ecchymosis with the right-sided worse, neck is supple, no carotid bruits. No mass. MENTAL STATUS: Subjective SPEECH, LANGUAGE, HIGHER CORTICAL FUNCTION: no aphasia or dysathria. CRANIAL NERVES: Pupils are equal, round and reactive. EOMs full and conjugate. No nystagmus. Facial sensation intact in all three divisions bilaterally. Mandibular strength intact. Facial muscles symmetrical and strength intact. SENSATION: Sensation to touch and pinprick is normal. MOTOR: Normal tone in the upper and lower extremity. Normal muscle bulk. No fasciculations. Mild bilateral dynamic tremors in the hands. Muscle strength of the major groups in the extremities is 5/5. REFLEXES: Deep tendon reflexes normal and symmetrical. No pathological reflexes. CEREBELLAR/COORDINATION: Finger to nose and heel to cooper are normal bilaterally. GAIT/STATION: deferred laboratory and microbiology Laboratory Tests 05/05/25 06:05 05/04/25 06:30 Test 05/05/25 06:05 Range/Units Serum Glucose 101 74-106 mg/dL Problem List Multiple bruises in the head, secondary to falls Speech disturbance/? Expressive aphasia since 05/02/2025, fine now History of acute stroke syndrome, with negative MRI scan Basilar artery migraine Essential tremors Metabolic encephalopathy in the evening on 05/04/2025 Mild cognitive impairment Family history of dementia Assessment/Plan Monitoring Support treatment Telemetry Aspirin 325 mg daily (home medication) Lipitor 20 mg daily Amitriptyline 100 mg at bedtime (home medication) Inderal 160 mg daily (home medication) Further address her dementia as outpatient Avoid the triptan and ergot agent for headache attack Follow up with her doctors on discharge TOÑO This medical document was created using an electronic medical record system with [employer] dictation system. Although this document has been carefully reviewed, there may still be some phonetic and typographical errors. These areas are purely typographical due to imperfections of the software programs, and do not reflect any compromise in the patient's medical care. Prognosis poor Plan discussed with: Patient, Spouse, Other WING DOWNEY MD May 06, 2025 10:52
--- NOTE | 2025-05-06 11:07 | DVHDS2 ---
Discharge Summary Date of Admission May 03, 2025 at 07:41 Date of Discharge: May 06, 2025 Labs/Diagnostic Data: Laboratory Results Test 05/05/25 10:58 05/05/25 06:05 05/04/25 06:30 05/03/25 00:56 Urine Color Yellow (Yellow) Urine Clarity Clear (Clear) Urine pH 6.5 (5.0-9.0) Urine Specific [place] 1.014 (1.001-1.035) Urine Protein Negative (Negative) Urine Ketones Negative (Negative) Urine Blood Negative /uL (Negative) Urine Nitrite Negative (Negative) Urine Bilirubin Negative (Negative) Urine Urobilinogen Normal mg/dL (Negative) Urine Leukocyte Esterase 1+ /uL (Negative) Urine RBC 1 /hpf (0 - 4) Urine Microscopic WBC 3 /HPF (0-5) Urine Squamous Epithelial Cells Few /hpf (<5) Urine Bacteria None seen /hpf (None Seen) Urine Glucose Normal mg/dL (Normal) Sodium Level 142 mmol/L (136-145) Potassium Level 3.6 mmol/L (3.5-5.1) Chloride Level 108 mmol/L (98-107) Carbon Dioxide Level 26 mmol/L (20-31) Anion Gap 8 (5-15) Blood Urea Nitrogen 12 mg/dL (9-23) Creatinine 0.50 mg/dL (0.550-1.02) Glomerular Filtration Rate Calc 95 mL/min (>90) BUN/Creatinine Ratio 24.0 (10.0-20.0) Serum Glucose 101 mg/dL (74-106) Calcium Level 8.8 mg/dL (8.7-10.4) Vitamin B12 Level > 4000 pg/mL (211-911) Folic Acid 38.62 ng/mL (>5.38) Free Thyroxine (T4) Calculated 1.50 ng/dL (0.89-1.76) White Blood Count 6.0 10^3/uL (4.4-10.8) Red Blood Count 4.26 10^6/uL (4.0-5.20) Hemoglobin 13.6 g/dL (12.2-16.2) Hematocrit 40.0 % (36.0-46.0) Mean Corpuscular Volume 93.9 fL (80.0-100.0) Mean Corpuscular Hemoglobin 32.0 pg (28.0-32.0) Mean Corpuscular Hemoglobin Concent 34.0 g/dL (32.0-36.0) Red Cell Distribution Width 13.0 % (11.8-14.3) Platelet Count 218 10^3/uL (140-450) Mean Platelet Volume 7.9 fL (6.9-10.8) Neutrophils (%) (Auto) 61.2 % (37.0-80.0) Lymphocytes (%) (Auto) 24.0 % (10.0-50.0) Monocytes (%) (Auto) 9.9 % (0.0-12.0) Eosinophils (%) (Auto) 4.3 % (0.0-7.0) Basophils (%) (Auto) 0.6 % (0.0-2.0) Neutrophils # (Auto) 3.6 10 ^3/uL (1.6-8.6) Lymphocytes # (Auto) 1.4 10 ^3/uL (0.4-5.4) Monocytes # (Auto) 0.6 10 ^3/uL (0-1.3) Eosinophils # (Auto) 0.3 10 ^3/uL (0-0.8) Basophils # (Auto) 0 10 ^3/uL (0-0.2) Nucleated Red Blood Cells 0.1 % Hemoglobin A1c 5.6 % A1C (<5.7) Total Bilirubin 1.2 mg/dL (0.2-1.0) Aspartate Amino Transferase (AST) 29 U/L (13-40) Alanine Aminotransferase (ALT) 22 U/L (7-40) Alkaline Phosphatase 69 U/L (46-116) Total Protein 5.8 g/dL (5.7-8.2) Albumin 3.9 g/dL (3.2-4.8) Thyroid Stimulating Hormone (TSH) 2.59 uIU/mL (0.55-4.78) Troponin I High Sensitivity 10 ng/L (</=34) Triglycerides Level 142 mg/dL (< 150) Cholesterol Level 186 mg/dL (< 200) LDL Cholesterol 112 mg/dL (< 100) HDL Cholesterol 66 mg/dL (40-59) Other Laboratory Tests 05/05/25 06:05 05/04/25 06:30 Brief Hx & Hospital Course: see dictated note Condition at Discharge: Fair Final Diagnosis/Problems List syncopy Discharge Disposition: [facility] Facility Discharge Instruct/Medications Diet: Cardiac 2g Na,low cholest Activity: No Restrictions, As Tolerated Follow Up/Referral: fu with pcp Medications: per mar Scheduled Amitriptyline HCl (Amitriptyline Hydrochlori), 1 TAB PO HS, (Reported) Aspirin (Aspirin), 325 MG PO DAILY, (Reported) Citalopram Hydrobromide (Citalopram Hydrobromide), 1 TAB PO DAILY, (Reported) Hydrochlorothiazide (Hydrochlorothiazide), 25 MG PO DAILY, (Reported) Levothyroxine Sodium (Levothyroxine Sodium), 100 MCG PO QAM, (Reported) Losartan Potassium (Losartan Potassium), 50 MG PO DAILY, (Reported) Multiple Vitamin (Multivitamins), 1 TAB PO DAILY, (Reported) [place]-3 Fatty Acids (Fish Oil), 1,000 MG PO DAILY, (Reported) Propranolol HCl (Propranolol Hydrochloride), 160 MG PO DAILY, (Reported) Simvastatin (Simvastatin), 20 MG PO DAILY, (Reported) Scheduled PRN Propranolol HCl (Propranolol Hydrochloride), 20 MG PO BIDP PRN for SBP>150, (Reported) Miscellaneous Medications Albuterol Sulfate (Proair Digihaler), 108 MCG IN, (Reported) Discontinued Medications Amitriptyline Hcl (Amitriptyline Hcl), 100 MG PO HS, (Reported) Amlodipine Besylate (Amlodipine Besylate), 5 MG PO DAILY, (Reported) Discharge Statement: "Patient was advised to return to the ER or call 911 if any headaches, dizziness, shortness of breath, chest pain, abdominal pain, bleeding, fevers, or worsening of medical condition. Patient was counseled about treatment plan, medications, possible side effects, patientverbalized understanding. All questions were answered to the best of my ability. This discharge took greater then 30 minutes in planning, reviewing documentation, counseling the patient, and discussing with other team members." ASSESSMENT ASSESSMENT Assessment syncopy Date of Service: May 06, 2025 Billing Provider: TYE MCMAHAN MD Common Visit Codes: [id number] DISCH DAY >30min TYE MCMAHAN MD May 06, 2025 11:07
--- NOTE | 2025-05-06 11:17 | DVHDS ---
HISTORY OF PRESENT ILLNESS: The patient is a 79-year-old lady who is admitted with frequent falls and dizziness and has a history of hypertension, hyperlipidemia, hypothyroidism, and dementia. HOSPITAL COURSE: The patient was seen in Neurology consult by Dr. Ardon. Brain MRI showed no acute abnormality. The patient had carotid Dopplers that showed no significant stenosis. The patient had an EEG that showed no seizure activity. The patient was noted to be bradycardic and was stopped off the Inderal. The patient's echocardiogram showed an ejection fraction of 55%. The patient will now be discharged to a [facility] facility with medications as per medication reconciliation. FINAL DIAGNOSES: * Status post fall with facial bruises. * Dizziness likely secondary to bradyarrhythmia due to beta blockers. * Dementia with encephalopathy. * Hypertension. * History of cerebrovascular accident. * Hypothyroidism. * Hyperlipidemia. * Hypothyroidism. Time spent in discharge planning and review of plan with the patient, , and paperwork was 39 minutes. MD CARLOS Bauer/ELLIOTT TID: [id number] RECEIPT: [id number]
== END 2025-05-06 14:40 | DRG 308 ==
LOC: ER 23:17 → OVERFLOW 05-03 07:41 → TELE-EAST 05-03 07:46
PROVIDERS: ADMIT Internal Medicine; ATTEND Internal Medicine
DX: I49.8 Other specified cardiac arrhythmias (principal); G93.41 Metabolic encephalopathy; R47.01 Aphasia; G81.91 Hemiplegia, unspecified affecting right dominant side; I44.0 Atrioventricular block, first degree; J45.909 Unspecified asthma, uncomplicated; E89.0 Postprocedural hypothyroidism; I11.9 Hypertensive heart disease without heart failure; T44.7X5A Adverse effect of beta-adrenoreceptor antagonists, initial encounter; G25.0 Essential tremor; S00.03XA Contusion of scalp, initial encounter; G43.109 Migraine with aura, not intractable, without status migrainosus; E78.5 Hyperlipidemia, unspecified; R73.03 Prediabetes; R29.6 Repeated falls; G31.84 Mild cognitive impairment of uncertain or unknown etiology; F17.200 Nicotine dependence, unspecified, uncomplicated; Z88.5 Allergy status to narcotic agent; Z90.49 Acquired absence of other specified parts of digestive tract; Z91.048 Other nonmedicinal substance allergy status; Z90.710 Acquired absence of both cervix and uterus; Z86.73 Personal history of transient ischemic attack (TIA), and cerebral infarction without residual deficits; Z82.49 Family history of ischemic heart disease and other diseases of the circulatory system; Z81.8 Family history of other mental and behavioral disorders; Z79.899 Other long term (current) drug therapy; Z79.82 Long term (current) use of aspirin; W06.XXXA Fall from bed, initial encounter; Y93.89 Activity, other specified; Y92.89 Other specified places as the place of occurrence of the external cause; Y99.8 Other external cause status; Z83.42 Family history of familial hypercholesterolemia
CPT/HCPCS: 36415; 70450; 70551; 71045; 80048; 80053; 80061; 81001; 82607; 82746; 83036; 84439; 84443; 84484; 85025; 93005; 93306; 93886; 95819; 97110; 97116; 97163; 97530; 99291; G0378

== ENCOUNTER 2025-10-11 10:11 | Inpatient (IN) | payer MEDICARE ==
[~2025-10-11] VITALS: Ht 160 cm; Wt 59.5 kg
[~2025-10-11 10:11] MED LIST changes: +AMIT100T75 PO; -AMIT25TA20 PO; -AMLO1TAB22 PO; +CITA-73 PO; +[UNRECOGNIZED DRUG - CODE] PO
--- NOTE | 2025-10-11 11:04 | ED.PDOC ---
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 Patient reports that she has been experiencing excessive burping with associated nausea and abdominal pressure for the past 4 days with associated diarrhea for the past 2 days. Patient relays that she has been unable to eat or drink regularly during this time, only able to take sips of soups or water due to the burping and nausea. Patient denies any severe pain, vomiting, dizziness, fever, chills, or hematemesis. Chief Complaint: Nausea/Vomiting Time Seen by MD: 11:02 Primary Care Provider: CHRISTINE Reviewed Notes: Nurses Notes, Gas Inspector Notes, Medications, Allergies Allergies: Coded Allergies: Codeine (Verified Allergy, Unknown, 05/03/25) Uncoded Allergies: PAPER TAPE (Allergy, Unknown, 09/21/21) Home Meds Reported Medications Citalopram Hydrobromide (Citalopram Hydrobromide) 40 Mg Tab, 1 TAB PO DAILY 05/03/25 Balm-3 Fatty Acids (Fish Oil) 1,000 Mg Cap, 1000 MG PO DAILY, CAP 09/22/21 Multiple Vitamin (Multivitamins) Tab, 1 TAB PO DAILY, #90 TAB 3 Refills 09/22/21 Albuterol Sulfate (Proair Digihaler) 108 Mcg/Act Aer, 108 MCG IN, AER 09/22/21 Hydrochlorothiazide (Hydrochlorothiazide) 25 Mg Tab, 25 MG PO DAILY for 30 Days, MG 09/22/21 Losartan Potassium (Losartan Potassium) 50 Mg Tab, 50 MG PO DAILY for 30 Days, M G 09/22/21 Levothyroxine Sodium (Levothyroxine Sodium) 100 Mcg Tab, 100 MCG PO QAM for 30 Days, MCG 09/22/21 Simvastatin (Simvastatin) 20 Mg Tab, 20 MG PO DAILY for 30 Days 09/22/21 Discontinued Reported Medications Propranolol HCl (Propranolol Hydrochloride) 160 Mg Cap, 160 MG PO DAILY 05/03/25 Amitriptyline HCl (Amitriptyline Hydrochlori) 100 Mg Tab, 1 TAB PO HS 05/03/25 Propranolol HCl (Propranolol Hydrochloride) 20 Mg Tab, 20 MG PO BIDP PRN for SBP>150, TAB 09/22/21 Aspirin (Aspirin) 325 Mg Tab, 325 MG PO DAILY for 30 Days, MG 09/22/21 Information Source: Patient, Emergency Med Personnel, Drapery Hemmer Automatic Mode of Arrival: EMS Timing: Days Duration: Since onset Prehospital treatment: None Quality: Other (Pressure) Vomitus: None Stool: Watery Severity: Moderate Recent: None Recent Hx of: None Pain Location: Diffuse Modifying Factors: Nothing Associated sign and symptoms: Nausea, Diarrhea, Abdominal Pain Past Medical History PAST MEDICAL HISTORY: CVA, High Lipids, HTN, Thyroid, TIA Surgical History: Cholecystectomy, Hysterectomy, Thyroidectomy CAR GROOMER History: No Pertinent CAR GROOMER History Family History Family History: Reviewed,noncontributory to illness Social History Smoker: Non-Smoker Alcohol: Denies ETOH Use Drugs: Denies Drug Use Lives In: Home Constitutional: denies: chills, diaphoresis, fatigue, fever, malaise, sweats, weakness, others EENTM: denies: blurred vision, double vision, ear bleeding, ear discharge, ear drainage, ear pain, ear ringing, eye pain, eye redness, hearing loss, mouth pain, mouth swelling, nasal discharge, nose bleeding, nose congestion, nose pain, photophobia, tearing, throat pain, throat swelling, voice changes, others Respiratory: denies: cough, hemoptysis, orthopnea, SOB at rest, shortness of breath, SOB with excertion, stridor, wheezing, others Cardiovascular: denies: chest pain, dizzy spells, diaphoresis, Dyspnea on exertion, edema, irregular heart beat, left arm pain, lightheadedness, palpitations, PND, syncope, others Gastrointestinal: reports: abdominal pain, diarrhea, nausea; denies: abdomen distended, blood streaked bowels, constipated, dysphagia, difficulty swallowing, hematemesis, melena, poor appetite, poor fluid intake, rectal bleeding, rectal pain, vomiting, others Genitourinary: denies: abnormal vagina bleeding, burning, dyspareunia, dysuria, flank pain, frequency, hematuria, incontinence, pain, , vagina discharge, urgency, others Neurological: denies: dizziness, fainting, headache, left sided numbness, left sided weakness, numbness, paresthesia, pre-existing deficit, right sided numbness, right sided weakness, seizure, speech problems, tingling, tremors, weakness, others Musculoskeletal: denies: back pain, gout, joint pain, joint swelling, muscle pain, muscle stiffness, neck pain, others Integumetry: denies: bruises, change in color, change in hair/nails, dryness, laceration, lesions, lumps, rash, wounds, others Allergic/Immunocompromised: denies: Difficulty Healing, Frequent Infections, Hives, Itching, others Hematologic/Lymphatic: denies: anemia, blood clots, easy bleeding, easy bruising, swollen glands, others Endocrine: denies: excessive hunger, excessive sweating, excessive thirst, excessive urination, flushing, intolerance to cold, intolerance to heat, unexplained weight gain, unexplained weight loss, others Psychiatric: denies: anxiety, bipolar disorder, depression, hopeless, panic disorder, schizophrenia, sleepless, suicidal, others All Other Systems: Reviewed and Negative Physical Exam General Appearance: No Apparent Distress, Normal HEENT: Normal ENT Inspection, Pharynx Normal, TMs Normal Neck: Full Range of Motion, Non-Tender, Normal, Normal Inspection Respiratory: Chest Non-Tender, Lungs Clear, No Accessory Muscle Use, No Respiratory Distress, Normal Breath Sounds Cardiovascular: No Edema, No JVD, No Murmur, No Gallop, Normal Peripheral Pulses, Regular Rate/Rhythm Breast Exam: Deferred Gastrointestinal: No Organomegaly, No Pulsatile Mass, Normal Bowel Sounds, Soft, Tenderness (Diffuse abdominal discomfort) Genitalia: Deferred Pelvic: Deferred Rectal: Deferred Extremities: No calf tenderness, Normal capillary refill, Normal inspection, Normal range of motion, Non-tender, No pedal edema Musculoskeletal : Apperance: Normal Neurologic: Alert, back end engineer II-XII nml as Tested, No Motor Deficits, Normal Affect, Normal Mood, No Sensory Deficits Cerebellar Function: Normal Reflexes: Normal Skin: Dry, Normal Color, Warm Lymphatic: No Adenopathy Was a procedure done? Was a procedure done?: No GI differential Dx Differential Diagnosis: Gastritis/PUD, Gastroenteritis, UTI, Urolithiasis, Dehydration, Viral X-Ray, Labs, Meds, VS Vital Signs Date Time Temp Pulse Resp B/P (MAP) Pulse Ox O2 Delivery O2 Flow Rate FiO2 10/11/25 15:35 104 16 128/72 (90) 96 10/11/25 14:35 Room Air* 0 21 10/11/25 13:35 97.4 105 17 135/66 (89) 97 97.4 10/11/25 10:11 98.9 95 16 135/66 95 98.9 Lab Test 10/11/25 14:16 10/11/25 13:20 10/11/25 10:57 Range/Units POC Glucose 129 H 70-106 mg/dl Urine Color Dark yellow Yellow Urine Clarity Turbid H Clear Urine pH 6.5 5.0-9.0 Urine Specific [place] 1.011 1.001-1.035 Urine Protein Trace H Negative Urine Ketones Negative Negative Urine Blood Negative Negative /uL Urine Nitrite Negative Negative Urine Bilirubin Negative Negative Urine Urobilinogen Normal Negative mg/dL Urine Leukocyte Esterase Trace Negative /uL Urine RBC 1 0 - 4 /hpf Urine Microscopic WBC 2 0-5 /HPF Urine Squamous Epithelial Cells Few <5 /hpf Urine Amorphous Crystals Few None Seen /hpf Urine Bacteria None seen None Seen /hpf Urine Mucus Few None Seen Urine Glucose Normal Normal mg/dL Urine Opiates Screen Neg NEGATIVE Urine Fentanyl Screen Neg NEGATIVE Urine Barbiturates Screen Neg NEGATIVE Urine Phencyclidine Screen Neg NEGATIVE Urine Amphetamines Screen Neg NEGATIVE Urine Benzodiazepines Screen Neg NEGATIVE Urine Cocaine Screen Neg NEGATIVE Urine Cannabinoids Screen Neg NEGATIVE White Blood Count 7.5 4.4-10.8 10^3/uL Red Blood Count 5.02 4.0-5.20 10^6/uL Hemoglobin 15.7 12.2-16.2 g/dL Hematocrit 46.9 H 36.0-46.0 % Mean Corpuscular Volume 93.4 80.0-100.0 fL Mean Corpuscular Hemoglobin 31.3 28.0-32.0 pg Mean Corpuscular Hemoglobin Concent 33.5 32.0-36.0 g/dL Red Cell Distribution Width 13.2 11.8-14.3 % Platelet Count 424 140-450 10^3/uL Mean Platelet Volume 8.7 6.9-10.8 fL Neutrophils (%) (Auto) 72.9 37.0-80.0 % Lymphocytes (%) (Auto) 17.8 10.0-50.0 % Monocytes (%) (Auto) 8.1 0.0-12.0 % Eosinophils (%) (Auto) 0.5 0.0-7.0 % Basophils (%) (Auto) 0.7 0.0-2.0 % Neutrophils # (Auto) 5.5 1.6-8.6 10 ^3/uL Lymphocytes # (Auto) 1.3 0.4-5.4 10 ^3/uL Monocytes # (Auto) 0.6 0-1.3 10 ^3/uL Eosinophils # (Auto) 0 0-0.8 10 ^3/uL Basophils # (Auto) 0.1 0-0.2 10 ^3/uL Nucleated Red Blood Cells 0.1 % Sodium Level 143 136-145 mmol/L Potassium Level 3.1 L 3.5-5.1 mmol/L Chloride Level 103 98-107 mmol/L Carbon Dioxide Level 26 20-31 mmol/L Anion Gap 14 5-15 Blood Urea Nitrogen 8 L 9-23 mg/dL Creatinine 0.51 L 0.550-1.02 mg/dL Glomerular Filtration Rate Calc 94 >90 mL/min BUN/Creatinine Ratio 15.7 10.0-20.0 Serum Glucose 152 H 74-106 mg/dL Hemoglobin A1c 5.6 <5.7 % A1C Lactic Acid Level 1.8 0.4-2.0 mmol/L Calcium Level 10.1 8.7-10.4 mg/dL Total Bilirubin 2.5 H 0.2-1.0 mg/dL Aspartate Amino Transferase (AST) 28 13-40 U/L Alanine Aminotransferase (ALT) 32 7-40 U/L Alkaline Phosphatase 88 46-116 U/L Total Protein 7.6 5.7-8.2 g/dL Albumin 4.9 H 3.2-4.8 g/dL Lipase 28 12-53 U/L CA 19-9 Antigen <2 0-35 U/mL Time of 1ST Reevaluation: 12:00 Reevaluation 1ST: Unchanged Patient Education/Counseling: Diagnosis, Treatment Family Education/Counseling: Diagnosis, Treatment SEPSIS Sepsis Screen Date sepsis recognized/suspect: Oct 11, 2025 Time Sepsis recognized/suspect: 1019 Recent Procedure: No On Antibiotic Therapy: No Respiratory Rate >20: No Heart Rate >90: No Temp<36 C (96.8 F) or >38.3 C: No SBP <90 or MAP <65 mmHG: No New Acute Mental Status Change: No Is the patient on CPAP, BIPAP,: No Physician Orders Ct Ab Pel With Iv Con Only (10/11/25 14:59) Vital Signs Date Time Temp Pulse Resp B/P (MAP) Pulse Ox O2 Delivery O2 Flow Rate FiO2 10/11/25 15:35 104 16 128/72 (90) 96 10/11/25 14:35 Room Air* 0 21 10/11/25 13:35 97.4 105 17 135/66 (89) 97 97.4 10/11/25 10:11 98.9 95 16 135/66 95 98.9 Laboratory Tests Test 10/11/25 10:57 Lactic Acid Level 1.8 mmol/L (0.4-2.0) White Blood Count 7.5 10^3/uL (4.4-10.8) Departure 1 Departure Time of Disposition: 07:06 (Patient likely with chronic pancreatitis intractable abdominal pain. We will admit patient for further workup) Impression: Primary Impression: Intractable abdominal pain Additional Impression: Chronic recurrent pancreatitis Disposition: ADMITTED INPATIENT Condition: Serious Critical Care Note Critical Care Time?: No Stability Stability form required: No Heart Score Heart Score: Heart Score Response (Comments) Value History N/A 0 EKG N/A 0 Age N/A 0 Risk Factors N/A 0 Troponin N/A 0 Total 0 I personally scribed for COLETTE COTTRELL MD ([email or web address]) on 10/11/25 at 11:04. Electronically submitted by Garland Martin ([email or web address]). COLETTE COTTRELL MD Oct 11, 2025 11:04
[2025-10-11 11:31] LABS: Hematocrit 46.9 % (36.0-46.0); Hemoglobin 15.7 g/dL (12.2-16.2); Mean Corpuscular Hemoglobin 31.3 pg (28.0-32.0); Mean Corpuscular Volume 93.4 fL (80.0-100.0); Nucleated Red Blood Cells % 0.1 %
[2025-10-11 11:45] LABS: Alanine Aminotransferase 32 U/L (7-40); Alkaline Phosphatase 88 U/L (46-116); Anion Gap 14 (5-15); BUN/Creatinine Ratio 15.7 (10.0-20.0); Calcium 10.1 mg/dL (8.7-10.4); Carbon Dioxide 26 mmol/L (20-31); Chloride 103 mmol/L (98-107); Lipase 28 U/L (12-53); Sodium 143 mmol/L (136-145); Total Protein 7.6 g/dL (5.7-8.2)
[2025-10-11 11:46] LABS: Albumin 4.9 g/dL (3.2-4.8); Bilirubin, Total 2.5 mg/dL (0.2-1.0); Blood Urea Nitrogen 8 mg/dL (9-23); Glucose 152 mg/dL (74-106); Potassium 3.1 mmol/L (3.5-5.1)
[2025-10-11] MEDS: ONDANSETRON HCL 4 MG/2 ML VIAL IV ONE (14:26)
[2025-10-11] MEDS: SODIUM CHLORIDE 0.9% 1,000 ML IV ONE (14:27)
[2025-10-11 14:38] LABS: Urine Amorphous Crystal FEW /hpf (None Seen); Urine Protein, UAD TRACE (Negative)
[2025-10-11] MEDS: IOHEXOL 300 MG/ML 100ML BOTTLE IJ ONE (15:29)
--- NOTE | 2025-10-11 15:51 | DVH ---
Exam: CT CT AB PEL WITH IV CON ONLY History: abdominal pain Comparison Study: None Exam Date: 10/11/2025 03:16 PM Radiation Dose Information: CT Dose: CTDI volume is 7.6 mGy. Dose-length product is 409 mGy*cm TECHNIQUE: During the uneventful, intravenous administration of contrast material, multislice data acquisition was obtained through the abdomen and pelvis. The data set was subsequently reconstructed into axial images. Images were reviewed on a work station using a combination of axial and multiplanar using a variety of window levels and settings. Findings: Lower chest: Clear. Liver: Unremarkable Biliary system: Surgically absent gallbladder with mildly dilated bile ducts, likely related to postcholecystectomy state Spleen: Unremarkable Pancreas: Diffusely atrophic. Questionable hypodensity in the pancreatic head may be related to underlying atrophy. Adrenals: Unremarkable. Kidneys and ureters: Normal renal enhancement. No hydronephrosis. Punctate nonobstructing left renal calculus. Bowel: No obstruction. Normal appendix. Scattered colonic diverticula. Bladder: Unremarkable Reproductive organs: No abnormal mass. Lymph nodes: Unremarkable. Peritoneum: Unremarkable Vessels: Patent major intra-abdominal vasculature. Bones and soft tissue: No aggressive osseous lesion. Postsurgical changes in the lower lumbar spine. Levoscoliosis and degenerative changes. IMPRESSION: No acute CT findings in the abdomen and pelvis. Questionable hypodensity in the pancreatic head likely related to underlying atrophy. If there is concern for underlying mass, consider MRI with and without contrast for further evaluation.
[2025-10-11] MEDS ORDERED: HYDROcodone-ACET 5/325MG TAB PO PRN (17:15)
[2025-10-11] MEDS ORDERED: ACETAMINOPHEN 325 MG TAB PO PRN (17:15)
[2025-10-11] MEDS ORDERED: METOCLOPRAMIDE HCL 5MG/ml INJ 2ml VIAL IV PRN (17:15)
[2025-10-11] MEDS ORDERED: MORPHINE SULFATE 4 MG/ML SYR/VIAL IV PRN (17:30)
[2025-10-11] MEDS: SODIUM CHLORIDE 0.9% 1,000 ML IV SCH (18:26)
[2025-10-11] MEDS: POTASSIUM EFFERVESENT TAB 25 MEQ PO ONE (18:37)
--- NOTE | 2025-10-11 18:48 | DVHHP2 ---
History of Present Illness History of Present Illness 80-year-old female with PMHx of stroke, hypertension, hyperlipidemia, hyperthyroidism, dementia who presents with three weeks of persistent nausea, burping, and poor PO tolerance, able to take only fluids since Thanksgiving. She denies vomiting but reports two days of diarrhea. No fevers or chills. Increasing anxiety during the encounter; improved after lorazepam. She denies abdominal pain. PMHx: stroke, hypertension, hyperlipidemia, hyperthyroidism, dementia. PSHx: cholecystectomy, hysterectomy, thyroidectomy. Allergies: codeine Social history: lives at home, denies tobacco/alcohol ROS: Denies CP, SOB, hematemesis, melena, hematochezia, constipation, dysuria, flank pain, headaches, vision changes, focal weakness. Positive for nausea, burping, reduced PO intake, diarrhea. Review of Systems Allergies: Coded Allergies: Codeine (Verified Allergy, Unknown, 05/03/25) Uncoded Allergies: PAPER TAPE (Allergy, Unknown, 09/21/21) Medications Current Medications Medications Dose Ordered Sig/Low Route Start Time Stop Time Status Last Admin Dose Admin Sodium Chloride 1,000 ml @ 100 mls/hr Q10H IV 10/11/25 17:15 10/11/25 18:26 100 MLS/HR Acetaminophen 650 mg Q6HP PRN PO 10/11/25 17:15 Acetaminophen/ Hydrocodone Bitart 1 tab Q4HP PRN PO 10/11/25 17:15 Morphine Sulfate 2 mg Q4HPRN PRN IV 10/11/25 17:30 Enoxaparin Sodium 40 mg DAILY SC 10/12/25 10:00 Lorazepam 1 mg Q12HP PRN PO 10/11/25 17:15 Metoclopramide HCl 5 mg Q8HPRN PRN IV 10/11/25 17:15 Exam Vital Signs Vital Signs Date Time Temp Pulse Resp B/P (MAP) Pulse Ox O2 Delivery O2 Flow Rate FiO2 10/11/25 15:35 104 16 128/72 (90) 96 10/11/25 14:35 Room Air* 0 21 10/11/25 13:35 97.4 97.4 Exam General: Elderly female, alert, anxious but cooperative. HEENT: MMM. No icterus. CV: Tachycardic, regular rhythm. Resp: CTAB, no distress. Abd: Soft, nondistended, nontender. No masses. Ext: No edema. Neuro: Baseline dementia, no focal deficits. Skin: Warm, dry. Labs/Xrays Labs Test 10/11/25 14:16 10/11/25 13:20 10/11/25 10:57 Range/Units POC Glucose 129 H 70-106 mg/dl Urine Color Dark yellow Yellow Urine Clarity Turbid H Clear Urine pH 6.5 5.0-9.0 Urine Specific [place] 1.011 1.001-1.035 Urine Protein Trace H Negative Urine Ketones Negative Negative Urine Blood Negative Negative /uL Urine Nitrite Negative Negative Urine Bilirubin Negative Negative Urine Urobilinogen Normal Negative mg/dL Urine Leukocyte Esterase Trace Negative /uL Urine RBC 1 0 - 4 /hpf Urine Microscopic WBC 2 0-5 /HPF Urine Squamous Epithelial Cells Few <5 /hpf Urine Amorphous Crystals Few None Seen /hpf Urine Bacteria None seen None Seen /hpf Urine Mucus Few None Seen Urine Glucose Normal Normal mg/dL White Blood Count 7.5 4.4-10.8 10^3/uL Red Blood Count 5.02 4.0-5.20 10^6/uL Hemoglobin 15.7 12.2-16.2 g/dL Hematocrit 46.9 H 36.0-46.0 % Mean Corpuscular Volume 93.4 80.0-100.0 fL Mean Corpuscular Hemoglobin 31.3 28.0-32.0 pg Mean Corpuscular Hemoglobin Concent 33.5 32.0-36.0 g/dL Red Cell Distribution Width 13.2 11.8-14.3 % Platelet Count 424 140-450 10^3/uL Mean Platelet Volume 8.7 6.9-10.8 fL Neutrophils (%) (Auto) 72.9 37.0-80.0 % Lymphocytes (%) (Auto) 17.8 10.0-50.0 % Monocytes (%) (Auto) 8.1 0.0-12.0 % Eosinophils (%) (Auto) 0.5 0.0-7.0 % Basophils (%) (Auto) 0.7 0.0-2.0 % Neutrophils # (Auto) 5.5 1.6-8.6 10 ^3/uL Lymphocytes # (Auto) 1.3 0.4-5.4 10 ^3/uL Monocytes # (Auto) 0.6 0-1.3 10 ^3/uL Eosinophils # (Auto) 0 0-0.8 10 ^3/uL Basophils # (Auto) 0.1 0-0.2 10 ^3/uL Nucleated Red Blood Cells 0.1 % Sodium Level 143 136-145 mmol/L Potassium Level 3.1 L 3.5-5.1 mmol/L Chloride Level 103 98-107 mmol/L Carbon Dioxide Level 26 20-31 mmol/L Anion Gap 14 5-15 Blood Urea Nitrogen 8 L 9-23 mg/dL Creatinine 0.51 L 0.550-1.02 mg/dL Glomerular Filtration Rate Calc 94 >90 mL/min BUN/Creatinine Ratio 15.7 10.0-20.0 Serum Glucose 152 H 74-106 mg/dL Hemoglobin A1c 5.6 <5.7 % A1C Lactic Acid Level 1.8 0.4-2.0 mmol/L Calcium Level 10.1 8.7-10.4 mg/dL Total Bilirubin 2.5 H 0.2-1.0 mg/dL Aspartate Amino Transferase (AST) 28 13-40 U/L Alanine Aminotransferase (ALT) 32 7-40 U/L Alkaline Phosphatase 88 46-116 U/L Total Protein 7.6 5.7-8.2 g/dL Albumin 4.9 H 3.2-4.8 g/dL Lipase 28 12-53 U/L SEPSIS Sepsis Screen Date sepsis recognized/suspect: Oct 11, 2025 Time Sepsis recognized/suspect: 1437 Recent Procedure: No On Antibiotic Therapy: No Respiratory Rate >20: No Heart Rate >90: Yes Temp<36 C (96.8 F) or >38.3 C: No SBP <90 or MAP <65 mmHG: No New Acute Mental Status Change: No Is the patient on CPAP, BIPAP,: No Physician Orders Ct Ab Pel With Iv Con Only (10/11/25 14:59) Admit (10/11/25 17:02) Code Status (10/11/25 17:02) Vital Signs .PER UNIT PROTOCOL (10/11/25 17:02) Review Orders With Adm. (10/11/25 17:02) Npo (Nothing By Mouth) Diet (10/11/25 Dinner) Sodium Chloride 0.9% (10/11/25 17:15) Acetaminophen Tablet (Tylenol Tablet) (10/11/25 17:15) Notify Md Of Changes From Base (10/11/25 17:02) Advance Directive (10/11/25 17:02) Patient Condition (10/11/25 17:02) Allergies (10/11/25 17:02) Hydrocodone-Acet 5/325mg Tab (Jarratt 5/32 (10/11/25 17:15) Drug Screen (10/11/25 17:02) Enoxaparin Sodium (Lovenox) (10/12/25 10:00) Oxygen By Nasal Cannula (10/11/25 17:02) Stat Ekg For Chest Pain (10/11/25 17:02) Notify Md Of Changes From Base (10/11/25 17:02) Lens Assorter For 24 Hours (10/11/25 17:02) Emergency Dysrhythmia Protocol (10/11/25 17:02) Rhythm Strips Once Every Shift (10/11/25 17:02) Lorazepam Tablet (Ativan Tablet) (10/11/25 17:15) Metoclopramide Injection (Reglan Injecti (10/11/25 17:15) Mri Abdomen No Contrast (10/11/25 17:02) Carbohydrate Antigen 19-9 (10/11/25 ) Morphine Sulfate Injection (10/11/25 17:30) Vital Signs Date Time Temp Pulse Resp B/P (MAP) Pulse Ox O2 Delivery O2 Flow Rate FiO2 10/11/25 15:35 104 16 128/72 (90) 96 10/11/25 14:35 Room Air* 0 21 10/11/25 13:35 97.4 105 17 135/66 (89) 97 97.4 Laboratory Tests Test 10/11/25 10:57 Lactic Acid Level 1.8 mmol/L (0.4-2.0) White Blood Count 7.5 10^3/uL (4.4-10.8) Medications Medications Dose Ordered Sig/Low Route Start Time Stop Time Status Last Admin Dose Admin Ondansetron HCl 4 mg ONCE ONCE IV 10/11/25 14:15 10/11/25 14:16 DC 10/11/25 14:26 4 MG Potassium Bicarbonate 50 meq ONCE ONCE PO 10/11/25 17:15 10/11/25 17:16 DC 10/11/25 18:37 50 MEQ Sodium Chloride 1,000 ml @ 100 mls/hr Q10H IV 10/11/25 17:15 10/11/25 18:26 100 MLS/HR Sodium Chloride 1,000 ml @ 1,000 mls/hr Q1H ONCE IV 10/11/25 14:15 10/11/25 15:14 DC 10/11/25 14:27 1,000 MLS/HR Assessment/Plan Assessment/Plan # Intractable vomiting with nausea Likely multifactorial, including chronic pancreatitis vs functional dyspepsia vs early malignancy given imaging findings. CT shows questionable hyperdensity in pancreatic head with underlying atrophy. She remains without overt abdominal pain but has poor PO intake for three weeks. Continue IV hydration, antiemetics Reglan, advance diet as tolerated, monitor electrolytes closely. # Chronic pancreatitis CT demonstrates pancreatic atrophy with focal hyperdensity. Presentation consistent with chronic pancreatic dysfunction leading to malabsorption and poor intake. MRI abdomen ordered to better characterize the pancreatic head and rule out underlying mass. Check CA 19-9. Supportive care with fluids, correct electrolytes, and consider GI consult if concern persists after MRI. # Hyperbilirubinemia Total bilirubin 2.5 with normal albumin, normal AST/ALT per your report. Could be from chronic pancreatitis or transient cholestasis; post-cholecystectomy anatomy noted. Trend CMP, ensure no evidence of obstruction on MRI. # Hypokalemia Potassium 3.1, likely due to poor PO intake and diarrhea. Repleted PO in ED. Continue to replace and recheck BMP. # Dementia #Ho stroke Chronic condition with intact baseline per caregiver. . Monitor for delirium given acute illness and poor intake. Continue aspirin and statin # Hypertension Chronic. BP stable on admission. #Hypothyroidism Continue levothyroxine Case discussed with Dr Kang DVT prophylaxis Plan discussed with: Patient, Other (rn) My Orders Orders - WERNER ORELLANA RESIDENT Procedure Category Date Status Time Admit ADMIT 10/11/25 Transmitted 17:02 Code Status CODE 10/11/25 Transmitted 17:02 Vital Signs RED 10/11/25 In Process 17:02 Review Orders With RED 10/11/25 In Process Adm. 17:02 Npo (Nothing By DIET 10/11/25 Transmitted Mouth) Diet Dinner Sodium Chloride 0.9% PHA 10/11/25 In Process 17:15 Acetaminophen Tablet PHA 10/11/25 In Process (Tylenol Tablet) 17:15 Notify Of Changes RED 10/11/25 In Process From Base 17:02 Advance Directive RED 10/11/25 In Process 17:02 Patient Condition ORDERS 10/11/25 Transmitted 17:02 Allergies RED 10/11/25 In Process 17:02 Hydrocodone-Acet PHA 10/11/25 In Process 5/325mg Tab (Jarratt 17:15 Drug Screen LAB 10/11/25 Logged 17:02 Enoxaparin Sodium PHA 10/12/25 In Process (Lovenox) 10:00 Oxygen By Nasal RT 10/11/25 Transmitted Cannula 17:02 Stat Ekg For Chest [facility] 10/11/25 In Process Pain 17:02 Notify Md Of Changes [facility] 10/11/25 In Process From Base 17:02 Lens Assorter For [facility] 10/11/25 In Process 24 Hours 17:02 Emergency Dysrhythmia [facility] 10/11/25 In Process Protocol 17:02 Rhythm Strips Once [facility] 10/11/25 In Process Every Shift 17:02 Lorazepam Tablet PHA 10/11/25 In Process (Ativan Tablet) 17:15 Metoclopramide PHA 10/11/25 In Process Injection (Reglan 17:15 Mri Abdomen No MRI 10/11/25 Logged Contrast 17:02 Carbohydrate Antigen LAB 10/11/25 In Process 19-9 Morphine Sulfate PHA 10/11/25 In Process Injection 17:30 Date of Service: Oct 11, 2025 Billing Provider: OBIE KANG MD Common Visit Codes: 46567-[id number] INP/OBS CARE (HIGH) Secondary Visit Codes: [id number]-[id number] CARE PLAN 30 MINUTES WERNER ORELLANA RESIDENT Oct 11, 2025 18:48
[2025-10-11 19:45] VITALS: PULSE 96; RESP 16; O2SAT 96
[2025-10-11 20:59] LABS: Cannabinoid Screen, Urine Neg (NEGATIVE)
[2025-10-11 21:00] LABS: Amphetamine Screen, Urine Neg (NEGATIVE); Barbiturate Scree,Urine Neg (NEGATIVE); Benzodiazephine Screen, Urine Neg (NEGATIVE); Cocaine Screen, Urine Neg (NEGATIVE); Opiate Scree,Urine Neg (NEGATIVE); Phencyclidine Screen, Urine Neg (NEGATIVE)
[2025-10-11] MEDS: LORazepam 0.5 MG TAB PO PRN (22:21)
[2025-10-11] MEDS: ATORVASTATIN 20 MG TAB PO SCH (22:21)
[2025-10-11] MEDS: PANTOPRAZOLE 40 MG/10 ML VIAL INJ IV SCH (22:22)
[2025-10-11 23:26] VITALS: BP 136/73; PULSE 86; RESP 18; TEMP 97.7; O2SAT 96
[2025-10-11 23:27] VITALS: BP 136/73; PULSE 86; RESP 18; TEMP 97.7; O2SAT 96
[2025-10-12] VITALS (8 sets, daily range): BP systolic 112–148; BP diastolic 59–78; PULSE 80–96; RESP 17–18; TEMP 98–98.8; O2SAT 91–96
[2025-10-12] MEDS: LEVOTHYROXINE SODIUM 100 MCG TAB PO SCH (05:24)
[2025-10-12 06:19] LABS: Hematocrit 35.9 % (36.0-46.0); Hemoglobin 12.2 g/dL (12.2-16.2); Mean Corpuscular Hemoglobin 31.6 pg (28.0-32.0); Mean Corpuscular Volume 93.3 fL (80.0-100.0); Nucleated Red Blood Cells % 0.1 %
[2025-10-12 06:33] LABS: Alanine Aminotransferase 25 U/L (7-40); Albumin 3.3 g/dL (3.2-4.8); Alkaline Phosphatase 60 U/L (46-116); Anion Gap 8 (5-15); BUN/Creatinine Ratio 17.6 (10.0-20.0); Blood Urea Nitrogen 6 mg/dL (9-23); Calcium 8.5 mg/dL (8.7-10.4); Carbon Dioxide 26 mmol/L (20-31); Chloride 111 mmol/L (98-107); Glucose 83 mg/dL (74-106); Potassium 3.5 mmol/L (3.5-5.1); Sodium 145 mmol/L (136-145); Total Protein 5.1 g/dL (5.7-8.2)
[2025-10-12 06:36] LABS: Bilirubin, Total 2.0 mg/dL (0.2-1.0)
[2025-10-12] MEDS: ENOXAPARIN SOD 40 MG/0.4 ML SYRINGE SC SCH (09:59)
--- NOTE | 2025-10-12 10:09 | DVH ---
CLINICAL INFORMATION: Abnormal CT. Rule out pancreatic malignancy. TECHNIQUE: Multisequence multiplanar MRI images of the abdomen were obtained without IV contrast. COMPARISON: CT of the abdomen and pelvis dated 10/11/2025. FINDINGS: Limited evaluation for malignancy on noncontrast enhanced exam. Motion artifact limits evaluation. Postsurgical changes of prior cholecystectomy. Common bile duct is dilated, measuring up to 1.3 cm in diameter, which may be seen after cholecystectomy due to reservoir effect. There is also mild prominence of the cystic duct remnant. Pancreatic duct is normal in diameter measuring up to 2 mm. There is a 1.0 cm T2 hyperintense structure at the uncinate process of the pancreas. The liver, spleen, adrenal glands, and kidneys appear unremarkable given the limitations of the examination. No abdominal aortic aneurysm. No other significant findings are seen. IMPRESSION: 1. Limited examination due to motion artifact and lack of postcontrast images. 2. 1.1 cm T2 hyperintense structure at the uncinate process of the pancreas, possible cyst, although the cystic versus solid nature of the mass can not be determined without Postcontrast images. Postcontrast imaging and MRCP recommended to further characterize. 3. Dilated common bile duct, may be seen after cholecystectomy due to reservoir effect. Correlate with clinical findings. If clinically indicated, MRCP could be obtained to exclude common bile duct obstruction.
--- NOTE | 2025-10-12 16:33 | DVHPNRES ---
Progress Note Date Seen: Oct 12, 2025 Resident Creating Document: BRAULIO GARCIA RESIDENT Medical Necessity Reason Pt with a Central, PICC or Fol: No Subjective Review of Systems Barbara Macias is an 80-year-old female with past medical history of stroke, hypertension, hyperlipidemia, hyperthyroidism, dementia who presented to the ED with the chief complaint of nausea, burping since thanksgi. She was any vomiting, but reported 2 days of diarrhea. The patient also mentions she has had reduced appetite and a weight loss of 20 lb in the last 6 months. She denies any abdominal pain. She denies any recent change in diet habits or travel. She has a history of an episode of bowel ischemia. Abdominal MRI showed hyperintense structure and uncinate process of pancreas, possible cyst and dilated CBD. MRCP was ordered. Past medical history:stroke, hypertension, hyperlipidemia, hyperthyroidism, dementia, bowel ischemia Past surgical history:cholecystectomy, hysterectomy, thyroidectomy. Allergies: codeine Social history: lives at home, denies tobacco/alcohol Patient seen and examined at bedside. Patient is alert and oriented to time, place person and responding to all questions. Eyes: No Pain, No Vision change, No Conjunctivae inflammation, No Eyelid inflammation, No Redness ENT: No Ear pain, No Ear discharge, No Nose pain, No Nose discharge, No Nose congestion, No Mouth pain, No Mouth swelling, No Throat pain, No Throat swelling Cardiovascular: No Chest Pain, No Palpitations, No Orthopnea, No Paroxysmal No Dyspnea, No Edema, No Lt Headedness Respiratory: No Cough, No Dry, No Shortness of breath, No SOB with exertion, No Wheezing, No Hemoptysis, No Pleuritic Pain, No Sputum Gastrointestinal: Nausea, No Vomiting, No Abdominal Pain, No Diarrhea, No Constipation, No Melena, No Hematochezia Genitourinary: No Dysuria, No Frequency, No Incontinence, No Hematuria, No Retention Objective vital signs Vital Sign Date Time Temp Pulse Resp B/P (MAP) Pulse Ox O2 Delivery O2 Flow Rate FiO2 10/12/25 13:00 98.6 85 17 148/78 (101) 96 98.6 10/11/25 23:27 Room Air* 0 21 Total Intake and Output 10/11/25 10/11/25 10/12/25 15:00 23:00 07:00 Intake Total 0 ml Balance 0 ml medications Current Medications Medications Dose Ordered Sig/Low Route Start Time Stop Time Status Last Admin Dose Admin Acetaminophen 650 mg Q6HP PRN PO 10/11/25 17:15 Acetaminophen/ Hydrocodone Bitart 1 tab Q4HP PRN PO 10/11/25 17:15 Morphine Sulfate 2 mg Q4HPRN PRN IV 10/11/25 17:30 Enoxaparin Sodium 40 mg DAILY SC 10/12/25 10:00 10/12/25 09:59 40 MG Lorazepam 1 mg Q12HP PRN PO 10/11/25 17:15 Metoclopramide HCl 5 mg Q8HPRN PRN IV 10/11/25 17:15 Aspirin 81 mg DAILY PO 10/12/25 10:00 10/12/25 09:59 81 MG Levothyroxine Sodium 100 mcg QAM@0600 PO 10/12/25 06:00 Atorvastatin Calcium 20 mg HS PO 10/11/25 22:00 10/11/25 22:21 20 MG Pantoprazole Sodium 40 mg DAILY@0600 PO 10/13/25 06:00 UNV Losartan Potassium 25 mg DAILY PO 10/13/25 10:00 UNV Citalopram Hydrobromide 40 mg DAILY PO 10/13/25 10:00 UNV Examination General Appearance: Cooperative. Well developed. Well nourished. NAD Head Exam: Normal inspection Neck Exam: Normal inspection. Non-tender. Normal alignment Pulmonary/Respiratory: Chest non-tender. Clear bilateral breath sounds, no crackles, no wheezing. Cardiovascular/Chest: Regular rate and rhythm. No murmurs. No JVD. Peripheral Pulses: 2+ Radial (R). 2+ Radial (L). 2+ Pedal (R). 2+ Pedal (L) Abdominal Exam: Normal bowel sounds. Soft. normal abdomen, no visible veins, Nontender. No hepatospenomegaly. No masses Ankle Exam: Negative ankle edema Lower extremities: Negative lower extremity edema Neuro/Mental Status: A&O x4. Coherent. Thoughts/Psych: Normal thought pattern. Appropriate mood and affect. Good judgement and insight Skin Exam: Normal inspection. Normal color. Warm. Dry laboratory and microbiology Laboratory Tests 10/12/25 05:25 Test 10/12/25 05:25 Range/Units Serum Glucose 83 74-106 mg/dL Labs and/or images reviewed: Labs reviewed by me, Image(s) reviewed by me Problem List/Assessment/Plan Problem List/Assessment/Plan # Intractable nausea # Hyperbilirubinemia # Possible chronic pancreatitis # Rule out pancreatic malginancy - CT shows questionable hyperdensity in pancreatic head with underlying atrophy -Abd MRI- 1.1 cm T2 hyperintense structure at the uncinate process of the pancreas, possible cyst, Dilated common bile duct -MRCP ordered -CA 19-9 is <2 -Lipase 28 # Hypokalemia Potassium 3.1,repleted # Dementia #Ho stroke -Chronic condition with intact baseline per caregiver. . Monitor for delirium given acute illness and poor intake. -Continue aspirin and statin # Hypertensive heart disease -resume home meds losartan 25 mg daily p.o. and hydrochlorothiazide 25 mg daily p.o. #Hypothyroidism -Continue levothyroxine 100 mcg PUD prophylaxis: protonix 40mg daily po DVT prophylaxis: Lovenox 40mg daily sc Goals of care: Full code, discussed for >23 minutes Plan discussed with patient Plan discussed with Dr Chapa Plan discussed with: Patient, Spouse My Orders My Orders Orders - BRAULIO GARCIA RESIDENT Procedure Category Date Status Time Mrcp Mri MRI 10/12/25 Taken 14:40 Dietary Evaluation Review Comments[facility] Card[facility] diet when medically feasible Expected Outcomes/Goals: able to tolerate PO feedings Visit Coding STANDARD RES Billing Provider: BRAYAN CHAPA MD Date of Service if different f: Oct 12, 2025 Common Visit Codes: [id number] INP/OBS CARE(HIGH) BRAULIO GARCIA RESIDENT Oct 12, 2025 16:33
--- NOTE | 2025-10-12 19:11 | DVH ---
MRI MRCP MRI INDICATION: pancreatic head mass COMPARISON: MRI MRI ABDOMEN NO CONTRAST on DOS: 10/12/25 TECHNIQUE: MRI and MRCP of the abdomen was performed without gadolinium. 3D reconstructed images were created under concurrent radiologist supervision and archived on the PACS system. FINDINGS: Hepatobiliary Findings: Bile ducts: Dilated intrahepatic and extrahepatic duct with distal CBD measuring up to 11 mm. No definite filling defect is noted. Liver: Normal contour . No definite focal mass, limited evaluation on this noncontrast study. Gallbladder: Cholecystectomy. Pancreas: Unremarkable. Additional Findings: Lower chest: Unremarkable. Spleen: Unremarkable. Adrenals: Unremarkable. Kidneys: Unremarkable. Bowel: No obstruction in the visualized loops of bowel. Lymph nodes: Unremarkable. Vessels: Grossly preserved flow void. Bones: No aggressive osseous lesion. IMPRESSION: Status post cholecystectomy with distal CBD measuring up to 11 mm likely related to the reservoir effect. No definite pancreatic head mass is noted although its evaluation is incomplete on this noncontrast study. Consider contrast-enhanced MR study for further evaluation.
[2025-10-13 01:00] VITALS: BP 147/67; PULSE 99; RESP 18; TEMP 97.8; O2SAT 93
[2025-10-13 05:00] VITALS: BP 112/48; PULSE 89; RESP 17; TEMP 97.7; O2SAT 96
[2025-10-13] MEDS: PANTOPRAZOLE 40 MG TAB PO SCH (05:56)
[2025-10-13 07:15] LABS: Hematocrit 39.3 % (36.0-46.0); Hemoglobin 13.3 g/dL (12.2-16.2); Mean Corpuscular Hemoglobin 31.9 pg (28.0-32.0); Mean Corpuscular Volume 94.2 fL (80.0-100.0); Nucleated Red Blood Cells % 0.1 %
[2025-10-13 07:26] LABS: Chloride 106 mmol/L (98-107); Sodium 142 mmol/L (136-145)
[2025-10-13 07:27] LABS: Anion Gap 11 (5-15); Carbon Dioxide 25 mmol/L (20-31)
[2025-10-13 07:28] LABS: Calcium 9.1 mg/dL (8.7-10.4)
[2025-10-13 07:31] LABS: Potassium 3.0 mmol/L (3.5-5.1)
[2025-10-13 07:33] LABS: Glucose 83 mg/dL (74-106)
[2025-10-13 07:39] LABS: BUN/Creatinine Ratio 12.5 (10.0-20.0); Blood Urea Nitrogen < 5 mg/dL (9-23)
[2025-10-13 08:00] VITALS: PULSE 86; RESP 16; O2SAT 97
[2025-10-13 08:43] VITALS: BP 117/59; PULSE 86; RESP 16; TEMP 98.2; O2SAT 97
[2025-10-13 09:00] LABS: Alanine Aminotransferase 30.0 U/L (7-40); Alkaline Phosphatase 70.0 U/L (46-116)
[2025-10-13 09:01] LABS: Albumin 3.6 g/dL (3.2-4.8); Total Protein 5.7 g/dL (5.7-8.2)
[2025-10-13 09:05] LABS: Bilirubin, Direct 0.6 mg/dL (<0.3); Bilirubin, Total 2.1 mg/dL (0.2-1.0)
[2025-10-13] MEDS: POTASSIUM CHL 20 Meq TABLET PO ONE (09:56)
[2025-10-13] MEDS: CITALOPRAM HYDROBR 20 MG TAB PO SCH (09:57)
[2025-10-13] MEDS: LOSARTAN POTASSIUM 25 MG TAB PO SCH (10:00)
[2025-10-13] MEDS: hydroCHLOROthiazide 25 MG TAB PO SCH (10:01)
[2025-10-13 12:17] VITALS: BP 159/76; PULSE 99; RESP 20; TEMP 98.4; O2SAT 92
[2025-10-13 13:00] VITALS: BP 159/76; PULSE 99; RESP 20; TEMP 98.4; O2SAT 92
--- NOTE | 2025-10-13 18:18 | DVHDSRES ---
Discharge Summary Date of Admission Resident Creating Document: BRAULIO GARCIA RESIDENT Oct 11, 2025 at 17:02 Date of Discharge: Oct 13, 2025 Admitting Diagnosis Chronic pancreatitis Labs/Diagnostic Data: Laboratory Results Test 10/13/25 06:45 10/11/25 14:16 10/11/25 13:20 10/11/25 10:57 White Blood Count 5.1 10^3/uL (4.4-10.8) Red Blood Count 4.17 10^6/uL (4.0-5.20) Hemoglobin 13.3 g/dL (12.2-16.2) Hematocrit 39.3 % (36.0-46.0) Mean Corpuscular Volume 94.2 fL (80.0-100.0) Mean Corpuscular Hemoglobin 31.9 pg (28.0-32.0) Mean Corpuscular Hemoglobin Concent 33.8 g/dL (32.0-36.0) Red Cell Distribution Width 13.6 % (11.8-14.3) Platelet Count 267 10^3/uL (140-450) Mean Platelet Volume 8.3 fL (6.9-10.8) Neutrophils (%) (Auto) 63.7 % (37.0-80.0) Lymphocytes (%) (Auto) 19.7 % (10.0-50.0) Monocytes (%) (Auto) 10.0 % (0.0-12.0) Eosinophils (%) (Auto) 5.1 % (0.0-7.0) Basophils (%) (Auto) 1.5 % (0.0-2.0) Neutrophils # (Auto) 3.2 10 ^3/uL (1.6-8.6) Lymphocytes # (Auto) 1.0 10 ^3/uL (0.4-5.4) Monocytes # (Auto) 0.5 10 ^3/uL (0-1.3) Eosinophils # (Auto) 0.3 10 ^3/uL (0-0.8) Basophils # (Auto) 0.1 10 ^3/uL (0-0.2) Nucleated Red Blood Cells 0.1 % Sodium Level 142 mmol/L (136-145) Potassium Level 3.0 mmol/L (3.5-5.1) Chloride Level 106 mmol/L (98-107) Carbon Dioxide Level 25 mmol/L (20-31) Anion Gap 11 (5-15) Blood Urea Nitrogen < 5 mg/dL (9-23) Creatinine 0.40 mg/dL (0.550-1.02) Glomerular Filtration Rate Calc 100 mL/min (>90) BUN/Creatinine Ratio 12.5 (10.0-20.0) Serum Glucose 83 mg/dL (74-106) Calcium Level 9.1 mg/dL (8.7-10.4) Total Bilirubin 2.1 mg/dL (0.2-1.0) Direct Bilirubin 0.6 mg/dL (<0.3) Aspartate Amino Transferase (AST) 26 U/L (13-40) Alanine Aminotransferase (ALT) 30 U/L (7-40) Alkaline Phosphatase 70 U/L (46-116) Total Protein 5.7 g/dL (5.7-8.2) Albumin 3.6 g/dL (3.2-4.8) POC Glucose 129 mg/dl (70-106) Urine Color Dark yellow (Yellow) Urine Clarity Turbid (Clear) Urine pH 6.5 (5.0-9.0) Urine Specific Agency 1.011 (1.001-1.035) Urine Protein Trace (Negative) Urine Ketones Negative (Negative) Urine Blood Negative /uL (Negative) Urine Nitrite Negative (Negative) Urine Bilirubin Negative (Negative) Urine Urobilinogen Normal mg/dL (Negative) Urine Leukocyte Esterase Trace /uL (Negative) Urine RBC 1 /hpf (0 - 4) Urine Microscopic WBC 2 /HPF (0-5) Urine Squamous Epithelial Cells Few /hpf (<5) Urine Amorphous Crystals Few /hpf (None Seen) Urine Bacteria None seen /hpf (None Seen) Urine Mucus Few (None Seen) Urine Glucose Normal mg/dL (Normal) Urine Opiates Screen Neg (NEGATIVE) Urine Fentanyl Screen Neg (NEGATIVE) Urine Barbiturates Screen Neg (NEGATIVE) Urine Phencyclidine Screen Neg (NEGATIVE) Urine Amphetamines Screen Neg (NEGATIVE) Urine Benzodiazepines Screen Neg (NEGATIVE) Urine Cocaine Screen Neg (NEGATIVE) Urine Cannabinoids Screen Neg (NEGATIVE) Hemoglobin A1c 5.6 % A1C (<5.7) Lactic Acid Level 1.8 mmol/L (0.4-2.0) Lipase 28 U/L (12-53) CA 19-9 Antigen <2 U/mL (0-35) Other Laboratory Tests 10/13/25 06:45 Brief Hx & Hospital Course: Barbara Macias is an 80-year-old female with past medical history of stroke, hypertension, hyperlipidemia, hyperthyroidism, dementia who presented to the ED with the chief complaint of nausea, burping since thanksgi. She was any vomiting, but reported 2 days of diarrhea. The patient also mentions she has had reduced appetite and a weight loss of 20 lb in the last 6 months. She denies any abdominal pain. She denies any recent change in diet habits or travel. She has a history of an episode of bowel ischemia. MRI was done which revealed dilated CBD and cystic mass in the uncinate process of pancreas. MRCP revealed dilated CBD, due to reservoir effect and no definitive pancreatic head mass. Patient started feeling better, had no nausea or vomiting. She tolerated her diet well. She was discharged home in a stable condition. She was recommended to follow up with PCP and GI in 1-2 weeks. Past medical history:stroke, hypertension, hyperlipidemia, hyperthyroidism, dementia, bowel ischemia Past surgical history:cholecystectomy, hysterectomy, thyroidectomy. Allergies: codeine Social history: lives at home, denies tobacco/alcohol Physical examination on the day of discharge: General Appearance: Cooperative. Well developed. Well nourished. NAD Head Exam: Normal inspection Neck Exam: Normal inspection. Non-tender. Normal alignment Pulmonary/Respiratory: Chest non-tender. Clear bilateral breath sounds, no crackles, no wheezing. Cardiovascular/Chest: Regular rate and rhythm. No murmurs. No JVD. Peripheral Pulses: 2+ Radial (R). 2+ Radial (L). 2+ Pedal (R). 2+ Pedal (L) Abdominal Exam: Normal bowel sounds. Soft. normal abdomen, no visible veins, Nontender. No hepatospenomegaly. No masses Ankle Exam: Negative ankle edema Lower extremities: Negative lower extremity edema Neuro/Mental Status: A&O x4. Coherent. Thoughts/Psych: Normal thought pattern. Appropriate mood and affect. Good judgement and insight Skin Exam: Normal inspection. Normal color. Warm. Dry Operations or Procedures 1.PROCEDURE(s): ABPLIV - CT AB PEL WITH IV CON ONLY REASON: abdominal pain ORDER NUMBER(s): [id number], ACCESSION NUMBER(s): [id number] Exam: CT CT AB PEL WITH IV CON ONLY History: abdominal pain Comparison Study: None Exam Date: 10/11/2025 03:16 PM Radiation Dose Information: CT Dose: CTDI volume is 7.6 mGy. Dose-length product is 409 mGy*cm TECHNIQUE: During the uneventful, intravenous administration of contrast material, multislice data acquisition was obtained through the abdomen and pelvis. The data set was subsequently reconstructed into axial images. Images were reviewed on a work station using a combination of axial and multiplanar using a variety of window levels and settings. Findings: Lower chest: Clear. Liver: Unremarkable Biliary system: Surgically absent gallbladder with mildly dilated bile ducts, likely related to postcholecystectomy state Spleen: Unremarkable Pancreas: Diffusely atrophic. Questionable hypodensity in the pancreatic head may be related to underlying atrophy. Adrenals: Unremarkable. Kidneys and ureters: Normal renal enhancement. No hydronephrosis. Punctate nonobstructing left renal calculus. Bowel: No obstruction. Normal appendix. Scattered colonic diverticula. Bladder: Unremarkable Reproductive organs: No abnormal mass. Lymph nodes: Unremarkable. Peritoneum: Unremarkable Vessels: Patent major intra-abdominal vasculature. Bones and soft tissue: No aggressive osseous lesion. Postsurgical changes in the lower lumbar spine. Levoscoliosis and degenerative changes. IMPRESSION: No acute CT findings in the abdomen and pelvis. Questionable hypodensity in the pancreatic head likely related to underlying atrophy. If there is concern for underlying mass, consider MRI with and without contrast for further evaluation. 2.PROCEDURE(s): MRCP - MRCP MRI REASON: ?pancreatic head mass ORDER NUMBER(s): [id number], ACCESSION NUMBER(s): [id number] MRI MRCP MRI INDICATION: pancreatic head mass COMPARISON: MRI MRI ABDOMEN NO CONTRAST on DOS: 10/12/25 TECHNIQUE: MRI and MRCP of the abdomen was performed without gadolinium. 3D reconstructed images were created under concurrent radiologist supervision and archived on the PACS system. FINDINGS: Hepatobiliary Findings: Bile ducts: Dilated intrahepatic and extrahepatic duct with distal CBD measuring up to 11 mm. No definite filling defect is noted. Liver: Normal contour . No definite focal mass, limited evaluation on this noncontrast study. Gallbladder: Cholecystectomy. Pancreas: Unremarkable. Additional Findings: Lower chest: Unremarkable. Spleen: Unremarkable. Adrenals: Unremarkable. Kidneys: Unremarkable. Bowel: No obstruction in the visualized loops of bowel. Lymph nodes: Unremarkable. Vessels: Grossly preserved flow void. Bones: No aggressive osseous lesion. IMPRESSION: Status post cholecystectomy with distal CBD measuring up to 11 mm likely related to the reservoir effect. No definite pancreatic head mass is noted although its evaluation is incomplete on this noncontrast study. Consider contrast-enhanced MR study for further evaluation. 3.PROCEDURE(s): MABL - MRI ABDOMEN NO CONTRAST REASON: RULE OUT PANCREATIC MALIGNANCY ORDER NUMBER(s): [id number], ACCESSION NUMBER(s): [id number] CLINICAL INFORMATION: Abnormal CT. Rule out pancreatic malignancy. TECHNIQUE: Multisequence multiplanar MRI images of the abdomen were obtained without IV contrast. COMPARISON: CT of the abdomen and pelvis dated 10/11/2025. FINDINGS: Limited evaluation for malignancy on noncontrast enhanced exam. Motion artifact limits evaluation. Postsurgical changes of prior cholecystectomy. Common bile duct is dilated, measuring up to 1.3 cm in diameter, which may be seen after cholecystectomy due to reservoir effect. There is also mild prominence of the cystic duct remnant. Pancreatic duct is normal in diameter measuring up to 2 mm. There is a 1.0 cm T2 hyperintense structure at the uncinate process of the pancreas. The liver, spleen, adrenal glands, and kidneys appear unremarkable given the limitations of the examination. No abdominal aortic aneurysm. No other significant findings are seen. IMPRESSION: 1. Limited examination due to motion artifact and lack of postcontrast images. 2. 1.1 cm T2 hyperintense structure at the uncinate process of the pancreas, possible cyst, although the cystic versus solid nature of the mass can not be determined without Postcontrast images. Postcontrast imaging and MRCP recommended to further characterize. 3. Dilated common bile duct, may be seen after cholecystectomy due to reservoir effect. Correlate with clinical findings. If clinically indicated, MRCP could be obtained to exclude common bile duct obstruction. Condition at Discharge: Fair Final Diagnosis/Problems List Acute intractable nausea, due to pancreatic cyst Hyperbilirubinemia Possible chronic pancreatitis, ruled out Pancreatic cyst History of ischemic bowel disease Rule out pancreatic malignancy Hypokalemia Dementia Ho stroke Hypertensive heart disease Hypothyroidism Discharge Disposition: Home Discharge Instruct/Medications Diet: Cardiac 2g Na,low cholest Activity: No Restrictions, As Tolerated Follow Up/Referral: Follow with PCP in 1-2 weeks Medications: Per EMR Scheduled Citalopram Hydrobromide (Citalopram Hydrobromide), 1 TAB PO DAILY, (Reported) Hydrochlorothiazide (Hydrochlorothiazide), 25 MG PO DAILY, (Reported) Levothyroxine Sodium (Levothyroxine Sodium), 100 MCG PO QAM, (Reported) Losartan Potassium (Losartan Potassium), 50 MG PO DAILY, (Reported) Multiple Vitamin (Multivitamins), 1 TAB PO DAILY, (Reported) [place]-3 Fatty Acids (Fish Oil), 1,000 MG PO DAILY, (Reported) Simvastatin (Simvastatin), 20 MG PO DAILY, (Reported) Miscellaneous Medications Albuterol Sulfate (Proair Digihaler), 108 MCG IN, (Reported) Discontinued Medications Amitriptyline HCl (Amitriptyline Hydrochlori), 1 TAB PO HS, (Reported) Aspirin (Aspirin), 325 MG PO DAILY, (Reported) Propranolol HCl (Propranolol Hydrochloride), 20 MG PO BIDP PRN for SBP>150, (Reported) Propranolol HCl (Propranolol Hydrochloride), 160 MG PO DAILY, (Reported) Discharge Statement: "Patient was advised to return to the ER or call 911 if any headaches, dizziness, shortness of breath, chest pain, abdominal pain, bleeding, fevers, or worsening of medical condition. Patient was counseled about treatment plan, medications, possible side effects, patientverbalized understanding. All questions were answered to the best of my ability. This discharge took greater then 30 minutes in planning, reviewing documentation, counseling the patient, and discussing with other team members." ASSESSMENT ASSESSMENT Assessment acute intractable nausea, due to pancreatic cyst Visit Coding STANDARD RES Billing Provider: BRAYAN CHAPA MD Date of Service if different f: Oct 13, 2025 Common Visit Codes: [id number]/[id number] DISCH DAY >30min BRAULIO GARCIA RESIDENT Oct 13, 2025 18:18
== END 2025-10-13 13:10 | disposition home or self-care (01) | DRG 439 ==
LOC: ER 10:11 → EDBD 10:11 → OVERFLOW 17:02 → WEST WING 21:58
PROVIDERS: ADMIT Student in an Organized Health Care Education/Training Program; ATTEND Student in an Organized Health Care Education/Training Program
DX: K86.2 Cyst of pancreas (principal); C25.9 Malignant neoplasm of pancreas, unspecified; F03.94 Unspecified dementia, unspecified severity, with anxiety; E03.9 Hypothyroidism, unspecified; I11.9 Hypertensive heart disease without heart failure; E87.6 Hypokalemia; E78.5 Hyperlipidemia, unspecified; E80.6 Other disorders of bilirubin metabolism; Z88.5 Allergy status to narcotic agent; Z79.82 Long term (current) use of aspirin; Z90.710 Acquired absence of both cervix and uterus; Z90.49 Acquired absence of other specified parts of digestive tract; Z86.73 Personal history of transient ischemic attack (TIA), and cerebral infarction without residual deficits; Z91.048 Other nonmedicinal substance allergy status; Z79.899 Other long term (current) drug therapy
CPT/HCPCS: 36415; 74177; 74181; 80048; 80053; 80076; 80307; 81001; 82962; 83036; 83605; 83690; 85025; 86301; G0378; J2405; J2470

== ENCOUNTER 2025-10-16 11:58 | Inpatient (IN) | payer MEDICARE ==
[~2025-10-16] VITALS: Ht 162.6 cm; Wt 59.5 kg
[~2025-10-16 11:58] MED LIST changes: -AMIT100T75 PO; -ASPI325T6 PO; -PROP1TAB53 PO; -[UNRECOGNIZED DRUG - CODE] PO
--- NOTE | 2025-10-16 12:32 | ED.PDOC ---
GI ASSESSMENT HPI Comments HPI: Initial Vitals BP: HR: RR: O2: Temp: Past Medical History: Past Surgical History: Social History: Medications: Allergies: Chief Complaint: Abdominal Pain Primary Care Provider: CHRISTINE Allergies: Coded Allergies: Codeine (Verified Allergy, Unknown, 05/03/25) Uncoded Allergies: PAPER TAPE (Allergy, Unknown, 09/21/21) Home Meds Reported Medications Citalopram Hydrobromide (Citalopram Hydrobromide) 40 Mg Tab, 1 TAB PO DAILY 05/03/25 [place]-3 Fatty Acids (Fish Oil) 1,000 Mg Cap, 1000 MG PO DAILY, CAP 09/22/21 Multiple Vitamin (Multivitamins) Tab, 1 TAB PO DAILY, #90 TAB 3 Refills 09/22/21 Albuterol Sulfate (Proair Digihaler) 108 Mcg/Act Aer, 108 MCG IN, AER 09/22/21 Hydrochlorothiazide (Hydrochlorothiazide) 25 Mg Tab, 25 MG PO DAILY for 30 Days, MG 09/22/21 Losartan Potassium (Losartan Potassium) 50 Mg Tab, 50 MG PO DAILY for 30 Days, MG 09/22/21 Levothyroxine Sodium (Levothyroxine Sodium) 100 Mcg Tab, 100 MCG PO QAM for 30 Days, MCG 09/22/21 Simvastatin (Simvastatin) 20 Mg Tab, 20 MG PO DAILY for 30 Days 09/22/21 Discontinued Reported Medications Propranolol HCl (Propranolol Hydrochloride) 160 Mg Cap, 160 MG PO DAILY 05/03/25 Amitriptyline HCl (Amitriptyline Hydrochlori) 100 Mg Tab, 1 TAB PO HS 05/03/25 Propranolol HCl (Propranolol Hydrochloride) 20 Mg Tab, 20 MG PO BIDP PRN for SBP>150, TAB 09/22/21 Aspirin (Aspirin) 325 Mg Tab, 325 MG PO DAILY for 30 Days, MG 09/22/21 Mode of Arrival: EMS X-Ray, Labs, Meds, VS Vital Signs Date Time Temp Pulse Resp B/P (MAP) Pulse Ox O2 Delivery O2 Flow Rate FiO2 10/16/25 12:06 97.9 97 18 130/69 95 97.9 10/16/25 12:04 94 I personally scribed for COLETTE COTTRELL MD ([email or web address]) on 10/16/25 at 12:32. Electronically submitted by Darling Bhagat ([facility]). I personally scribed for COLETTE COTTRELL MD ([email or web address]) on 10/16/25 at 12:36. Electronically submitted by Darling Bhagat ([facility]). COLETTE COTTRELL MD Oct 16, 2025 12:32
--- NOTE | 2025-10-16 12:37 | ED.PDOC ---
GI ASSESSMENT HPI Comments HPI: Gilberto 80 y.o female presents to the ED via EMS for a chief complaint of epigastric pain and nausea that started last night at 8pm s/p eating dinner. Patient was recently admitted to this hospital on 10/11/25 for same c/o and discharged two days later with a dx of chronic pancreatitis, She was informed to f/u with PCP and GI within the next 1-2 weeks to under go an EGD outpatient. Patient states eating bland chicken with vegetables in which exacerbated her pain. However, she mentions today pain is tolerable but nausea is her main c/o. She has used Zofran but denies any relief. She denies any diarrhea, fever, chills. BG in route read 150. Initial Vitals BP: 130/69 HR: 97 RR: 18 O2: 95% RA Temp: 97.9 F Past Medical History: pancreatitis, PNA, HTN, AFIB, depression, anxiety, chronic pancreatitis, essential tremors Social History: Denies Allergies: Codeine and paper tape HPI: Poor Historian. REVIEW OF SYSTEMS: CONSTITUTIONAL: Denies acute: fever, diaphoresis, chills, generalized weakness. HEAD: Denies acute: headache, photophobia Eyes: Denies acute: Double vision, vision loss, eye pain, eye discharge. EARS: Denies acute: tinnitus, hearing loss, ear discharge, ear pain, THROAT: Denies acute: sore throat, swelling, difficulty swallowing , pain with swallowing, change in voice. NECK: Denies acute: neck pain, neck swelling, stiff neck. HEART: Denies acute : chest pain, palpitations, LUNGS: Denies acute: SOB, wheezing, cough, hemoptysis ABDOMEN: Denies acute: Vomiting, diarrhea, melena , hematemesis, hematochezia SKIN: Denies acute: rash, redness, lesions, itchiness. EXTREMITIES: Denies acute: calf pain, numbness, tingling, weakness, denies pain in extremity. Denies acute: Low back pain. Neuro: Denies acute: focal neurological deficit, motor or sensory focal neurological deficit, tremors, seizure like activity, confusion, dizziness, change in mental status, loss of bowel or bladder function, cauda equina like symptoms. : Denies acute: dysuria, hematuria, flank pain, increase in urinary frequency. PSYCH: Denies acute: hallucination, suicidal ideation, homicidal ideation. FEMALE: Denies acute: abnormal vaginal bleeding, foul odor, unusual discharge. PHYSICAL EXAM: General: ----mild----acute distress, awake and alert. Head: normocephalic, atraumatic. No raccoon's eyes, no jj sign. Neck: supple, trachea is midline, no swelling. Throat: Normal phonation. Eyes:, no erythema, no purulent discharge, no proptosis, no icterus. Heart: regular rate, regular rhythm, no significant murmur appreciated. Lungs: no apparent respiratory distress, Able to speak in full sentences. No wheezing, no rhonchi, no crackles. No stridors Clear to auscultation bilaterally. Abdomen: Epigastric tender to palpation, non distended, soft, no guarding, no rebound, + bowel sounds. Neuro: Awake, Alert, oriented to name, self, situation, follows commands GCS=15. Speech is normal. Skin: no petechia, no purpura, no cyanosis, non-pale, not jaundice. Lower extremities: --no - Pitting edema no deformity, no focal swelling, no calf TTP. Makes eye contact. moves all four extremities. Face: no apparent facial droop. ED COURSE: DISCLAIMER: This medical document was created using an electronic medical record system with voice recognition software and computerized dictation system. Although this document has been carefully reviewed, there might still be some phonetic and typographical errors. Occasional wrong-word or "sound-alike" substitutions may have occurred due to the inherent limitations of voice recognition software. These areas are purely typographical due to imperfections of the software programs and do not reflect any compromise in the patient's medical care. Please read the chart carefully and recognize, using context, where these substitutions have occurred. Chief Complaint: Abdominal Pain Time Seen by MD: 12:33 Primary Care Provider: CHRISTINE Reviewed Notes: Allergies Allergies: Coded Allergies: Codeine (Verified Allergy, Unknown, 05/03/25) Uncoded Allergies: PAPER TAPE (Allergy, Unknown, 09/21/21) Home Meds Active Scripts Dicyclomine Hcl (BENTYL CAPSULE) 10 Mg Cp, 1 CAP PO TID, #30 CAP 3 Refills Prov:ZELDA CRUZ MD 10/21/25 Sucralfate (CARAFATE) 1 Gm Tab, 1 GM PO QID, #120 TAB Prov:ZELDA CRUZ MD 10/21/25 Pantoprazole Sodium Sesquihydr (Protonix) 40 Mg Tab, 40 MG PO BID, #60 TAB Prov:ZELDA CRUZ MD 10/21/25 Temazepam (Restoril) 15 Mg Cp, 1 CAP PO QPM PRN, #10 CAP 1 Refill Prov:ZELDA CRUZ MD 10/21/25 Reported Medications Citalopram Hydrobromide (Citalopram Hydrobromide) 40 Mg Tab, 1 TAB PO DAILY 05/03/25 Douglass-3 Fatty Acids (Fish Oil) 1,000 Mg Cap, 1000 MG PO DAILY, CAP 09/22/21 Multiple Vitamin (Multivitamins) Tab, 1 TAB PO DAILY, #90 TAB 3 Refills 09/22/21 Albuterol Sulfate (Proair Digihaler) 108 Mcg/Act Aer, 108 MCG IN, AER 09/22/21 Hydrochlorothiazide (Hydrochlorothiazide) 25 Mg Tab, 25 MG PO DAILY for 30 Days, MG 09/22/21 Losartan Potassium (Losartan Potassium) 50 Mg Tab, 50 MG PO DAILY for 30 Days, MG 09/22/21 Levothyroxine Sodium (Levothyroxine Sodium) 100 Mcg Tab, 100 MCG PO QAM for 30 Days, MCG 09/22/21 Simvastatin (Simvastatin) 20 Mg Tab, 20 MG PO DAILY for 30 Days 09/22/21 Information Source: Patient, Emergency Med Personnel Mode of Arrival: EMS Was a procedure done? Was a procedure done?: No GI differential Dx Differential Diagnosis: Esophagitis, Gastritis/PUD, Gastroenteritis, Esophageal Varicies, Stress Ulcer, Other (DDX include Diverticulitis, colitis, gastroenteritis, acute abdomen, SBO, enteritis, constipation, volvulus, appendicitis, Gallbladder disease, choledocolithiasis, ascending cholangitis, pancreatitis, intraAbdominal mass/neoplasm, hepatitis, UTI, pylonephritis, kidney stone, aneurysm, dissection, Inflammatory bowel disease, gastroparesis, ischemic bowel,,,,,,Food poisoning, bacterial/parasitic/viral etiology, trauma, diabetes DKA, ) X-Ray, Labs, Meds, VS Vital Signs Date Time Temp Pulse Resp B/P (MAP) Pulse Ox O2 Delivery O2 Flow Rate FiO2 10/16/25 14:47 98.0 98 18 121/60 (80) 95 98.0 10/16/25 12:06 97.9 97 18 130/69 95 97.9 10/16/25 12:04 94 Lab Test 10/16/25 14:27 10/16/25 13:41 10/16/25 12:42 Range/Units Urine Color Yellow Yellow Urine Clarity Clear Clear Urine pH 6.0 5.0-9.0 Urine Specific Burr 1.017 1.001-1.035 Urine Protein Trace H Negative Urine Ketones 2+ H Negative Urine Blood Negative Negative /uL Urine Nitrite Negative Negative Urine Bilirubin Negative Negative Urine Urobilinogen Normal Negative mg/dL Urine Leukocyte Esterase Negative Negative /uL Urine RBC 1 0 - 4 /hpf Urine Microscopic WBC 5 0-5 /HPF Urine Squamous Epithelial Cells Few <5 /hpf Urine Bacteria None seen None Seen /hpf Urine Hyaline Casts Mod 0 - 2 /lpf Urine Mucus Few None Seen Urine Glucose Normal Normal mg/dL Magnesium Level 2.1 1.6-2.6 mg/dL Troponin I High Sensitivity 17 19 </=34 ng/L White Blood Count 6.0 4.4-10.8 10^3/uL Red Blood Count 5.00 4.0-5.20 10^6/uL Hemoglobin 15.8 # 12.2-16.2 g/dL Hematocrit 46.7 #H 36.0-46.0 % Mean Corpuscular Volume 93.4 80.0-100.0 fL Mean Corpuscular Hemoglobin 31.6 28.0-32.0 pg Mean Corpuscular Hemoglobin Concent 33.9 32.0-36.0 g/dL Red Cell Distribution Width 13.4 11.8-14.3 % Platelet Count 384 140-450 10^3/uL Mean Platelet Volume 8.4 6.9-10.8 fL Neutrophils (%) (Auto) 73.1 37.0-80.0 % Lymphocytes (%) (Auto) 17.6 10.0-50.0 % Monocytes (%) (Auto) 7.9 0.0-12.0 % Eosinophils (%) (Auto) 0.6 0.0-7.0 % Basophils (%) (Auto) 0.8 0.0-2.0 % Neutrophils # (Auto) 4.4 1.6-8.6 10 ^3/uL Lymphocytes # (Auto) 1.1 0.4-5.4 10 ^3/uL Monocytes # (Auto) 0.5 0-1.3 10 ^3/uL Eosinophils # (Auto) 0 0-0.8 10 ^3/uL Basophils # (Auto) 0 0-0.2 10 ^3/uL Nucleated Red Blood Cells 0.1 % Sodium Level 141 136-145 mmol/L Potassium Level 3.3 L 3.5-5.1 mmol/L Chloride Level 102 98-107 mmol/L Carbon Dioxide Level 25 20-31 mmol/L Anion Gap 14 5-15 Blood Urea Nitrogen 15 9-23 mg/dL Creatinine 0.52 L 0.550-1.02 mg/dL Glomerular Filtration Rate Calc 94 >90 mL/min BUN/Creatinine Ratio 28.8 H 10.0-20.0 Serum Glucose 124 H 74-106 mg/dL Lactic Acid Level 1.2 0.4-2.0 mmol/L Calcium Level 9.9 8.7-10.4 mg/dL Total Bilirubin 2.1 H 0.2-1.0 mg/dL Aspartate Amino Transferase (AST) 77 H 13-40 U/L Alanine Aminotransferase (ALT) 64 H 7-40 U/L Alkaline Phosphatase 87 46-116 U/L Total Protein 7.1 5.7-8.2 g/dL Albumin 4.7 3.2-4.8 g/dL Lipase 27 12-53 U/L [place] [id number] Ph: [phone] DIAGNOSTIC IMAGING Diagnostic Imaging Report : [id number] Signed PATIENT: CHAPARRO NESBITT ACCT: [id number] UNIT: [id number] : 1945 LOC: [facility] ROOM / BED: [facility] / B AGE / SEX: 80 / F ADM STATUS: ADM IN SERVICE 1702 ORDERING PHYSICIAN: WERNER ORELLANA RESIDENT PROCEDURE(s): MABL - MRI ABDOMEN NO CONTRAST REASON: RULE OUT PANCREATIC MALIGNANCY ORDER NUMBER(s): [id number], ACCESSION NUMBER(s): [id number] CLINICAL INFORMATION: Abnormal CT. Rule out pancreatic malignancy. TECHNIQUE: Multisequence multiplanar MRI images of the abdomen were obtained w ithout IV contrast. COMPARISON: CT of the abdomen and pelvis dated 10/11/2025. FINDINGS: Limited evaluation for malignancy on noncontrast enhanced exam. Motion artifact limits evaluation. Postsurgical changes of prior cholecystectomy. Common bile duct is dilated, measuring up to 1.3 cm in diameter, which may be seen after cholecystectomy due to reservoir effect. There is also mild prominence of the cystic duct remnant. Pancreatic duct is normal in diameter measuring up to 2 mm. There is a 1.0 cm T2 hyperintense structure at the uncinate process of the pancreas. The liver, spleen, adrenal glands, and kidneys appear unremarkable given the limitations of the examination. No abdominal aortic aneurysm. No other significant findings are seen. IMPRESSION: 1. Limited examination due to motion artifact and lack of postcontrast images. 2. 1.1 cm T2 hyperintense structure at the uncinate process of the pancreas, possible cyst, although the cystic versus solid nature of the mass can not be determined without Postcontrast images. Postcontrast imaging and MRCP recommended to further characterize. 3. Dilated common bile duct, may be seen after cholecystectomy due to reservoir effect. Correlate with clinical findings. If clinically indicated, MRCP could be obtained to exclude common bile duct obstruction. ATED BY: MINGO SOTO DO DICTATED DATE/TIME: 10/12/25 1006 SIGNED BY: MINGO SOTO DO SIGNED DATE/TIME: 10/12/25 1006 CC: Time of 1ST Reevaluation: 12:48 Reevaluation 1ST: Unchanged Patient Education/Counseling: Diagnosis, Treatment Family Education/Counseling: No Family Present Comments MDM: patient presented with the above HPI.-epigastric abdominal pain-----workup was initiated. patient was found with the above mentioned diagnosis. the following medications were ordered: please refer to order lists of meds and tests obtained by myself Dr. Moe. Patient ED course and VS have been stabilized. Patient has been reassessed in the ED and remained in a stable condition. Pertinent incidental findings were discussed with the patient and/or family. Patient/family voices understanding and is agreeable with plan. Patient has been observed in the ED adequate length of time to insure improvement/stability. Escalation of care considered: Consideration of escalation to observation or admission Patient was ADMITTED to the medicine team for further evaluation and treatment of their presentation. All the reports of any imaging studies that were ordered by myself were reviewed by myself. Departure 1 Departure Time of Disposition: 16:04 Impression: Primary Impression: Epigastric abdominal pain Disposition: ADMITTED INPATIENT Admit to: Tele Condition: Guarded e-Prescriptions Dicyclomine Hcl (BENTYL CAPSULE) 10 Mg Cp 1 CAP PO TID, #30 CAP 3 Refills Prov: ZELDA CRUZ MD 10/21/25 Sucralfate (CARAFATE) 1 Gm Tab 1 GM PO QID, #120 TAB Prov: ZELDA CRUZ MD 10/21/25 Pantoprazole Sodium Sesquihydr (Protonix) 40 Mg Tab 40 MG PO BID, #60 TAB Prov: ZELDA CRUZ MD 10/21/25 Temazepam (Restoril) 15 Mg Cp 1 CAP PO QPM PRN, #10 CAP 1 Refill Prov: ZELDA CRUZ MD 10/21/25 Discharged With: Self Critical Care Note Critical Care Time?: No Heart Score Heart Score: Heart Score Response (Comments) Value History N/A 0 EKG N/A 0 Age N/A 0 Risk Factors N/A 0 Troponin N/A 0 Total 0 I personally scribed for VERÓNICA MOE DO ([email or web address]) on 10/16/25 at 12:37. Electronically submitted by Darling Bhagat ([facility]). I personally scribed for VERÓNICA MOE DO ([email or web address]) on 10/16/25 at 13:06. Electronically submitted by Darling Bhagat ([facility]). I personally scribed for VERÓNICA MOE DO ([email or web address]) on 10/16/25 at 13:32. Electronically submitted by Darling Bhagat ([facility]). I personally scribed for VERÓNICA MOE DO ([email or web address]) on 10/16/25 at 13:52. Electronically submitted by Darling Bhagat ([facility]). I personally scribed for VERÓNICA MOE DO ([email or web address]) on 12/13/25 at 18:45. Electronically submitted by Darling Bhagat ([facility]). I personally scribed for VERÓNICA MOE DO ([email or web address]) on 10/16/25 at 18:50. Electronically submitted by Darling Bhagat ([facility]). VERÓNICA MOE DO Oct 16, 2025 12:37
--- NOTE | 2025-10-16 12:44 | DVH ---
EXAM DESCRIPTION: Chest 1 View CLINICAL HISTORY: epig pain COMPARISON: XY CHEST PORTABLE on DOS: 05/02/25, CR CHEST 2 VIEW on DOS: 04/13/24 FINDINGS and IMPRESSION: Lines, tubes, and support devices: None. Lungs / Pleura: No consolidation. No pleural effusion. No pneumothorax. Mediastinum: Normal cardiomediastinal silhouette. Osseous structures / Soft tissues: No acute findings.
[2025-10-16 13:06] LABS: Hematocrit 46.7 % (36.0-46.0); Hemoglobin 15.8 g/dL (12.2-16.2); Mean Corpuscular Hemoglobin 31.6 pg (28.0-32.0); Mean Corpuscular Volume 93.4 fL (80.0-100.0); Nucleated Red Blood Cells % 0.1 %
[2025-10-16 13:20] LABS: Albumin 4.7 g/dL (3.2-4.8); Alkaline Phosphatase 87 U/L (46-116); Anion Gap 14 (5-15); BUN/Creatinine Ratio 28.8 (10.0-20.0); Blood Urea Nitrogen 15 mg/dL (9-23); Calcium 9.9 mg/dL (8.7-10.4); Carbon Dioxide 25 mmol/L (20-31); Chloride 102 mmol/L (98-107); Lipase 27 U/L (12-53); Sodium 141 mmol/L (136-145); Total Protein 7.1 g/dL (5.7-8.2)
[2025-10-16 13:39] LABS: Alanine Aminotransferase 64 U/L (7-40); Bilirubin, Total 2.1 mg/dL (0.2-1.0); Glucose 124 mg/dL (74-106); Potassium 3.3 mmol/L (3.5-5.1)
--- NOTE | 2025-10-16 15:07 | DVHHP2 ---
History of Present Illness Reason for Visit: epigastric pain History of Present Illness 80-year-old female with past medical history of chronic pancreatitis, prior pneumonia, hypertension, atrial fibrillation, depression, and tremors presents with inability to eat or drink for the past two days prior to Thanksgiving due to severe epigastric pain. She describes the pain as pressure-like, with no ripping or tearing sensation, and reports no alleviating or aggravating factors. She denies diarrhea and fever. She reports nausea and vomiting without blood. The patient states she was supposed to follow up with her primary care physician for an outpatient EGD but has not yet done so. In the ED, she received Zofran and IV normal saline. Laboratory evaluation showed CBC unremarkable, potassium 3.3 (repleted), glucose 124, total bilirubin 2.1, AST 77, ALT 64, and troponin negative. Chest X-ray was unremarkable. Given persistent severe epigastric pain, poor oral intake, and lab abnormalities, the patient will be admitted for IV fluids, IV PPI therapy, pain control, and GI evaluation as needed. will admit to medicine Past Medical History See HPI above Past Surgical History See HPI above Family History Reviewed, non-contributory to the management of this case. Past Social History The patient lives at home, denies smoking, alcohol or illicit drugs abuse. Review of Systems Constitutional: No: Fever, Chills, Sweats, Weakness, Malaise, Other Eyes: No: Pain, Vision change, Conjunctivae inflammation, Eyelid inflammation, Other, Redness ENT: No: Ear pain, Ear discharge, Nose pain, Nose discharge, Nose congestion, Mouth pain, Mouth swelling, Throat pain, Throat swelling, Other Respiratory: No: Cough, Dry, Shortness of breath, SOB with excertion, Wheezing, Hemoptysis, Pleuritic Pain, Sputum, Wheezing, Other Cardiovascular: No: Chest Pain, Palpitations, Orthopnea, Paroxysmal Noc. Dyspnea, Edema, Lt Headedness, Other Gastrointestinal: Nausea, Vomiting, Abdominal Pain; No: Diarrhea, Constipation, Melena, Hematochezia, Other Genitourinary: No Dysuria, No Frequency, No Incontinence, No Hematuria, No Retention, No Other Musculoskeletal: No: other, neck pain, shoulder pain, arm pain, back pain, hand pain, leg pain, foot pain Skin: No: Rash, Lesions, Jaundice, Bruising, Other Neurological: No: Weakness, Numbness, Incoordination, Change in speech, Confusion, Seizures, Other Allergies: Coded Allergies: Codeine (Verified Allergy, Unknown, 05/03/25) Uncoded Allergies: PAPER TAPE (Allergy, Unknown, 09/21/21) Exam Vital Signs Vital Signs Date Time Temp Pulse Resp B/P (MAP) Pulse Ox O2 Delivery O2 Flow Rate FiO2 10/16/25 14:47 98.0 98 18 121/60 (80) 95 98.0 General Appearance: Alert, Oriented X3, Cooperative, No acute distress HEENT: Atraumatic, PERRLA, EOMI, Mucous membr. moist/pink Respiratory: Clear to auscultation, Normal air movement Cardiovascular: Regular rate, Normal S1, Normal S2, No murmurs Abdominal: Normal bowel sounds, No tenderness, No hepatospenomegaly, No masses, Other (guarding and rebound tenderness ) Extremities: No clubbing, No cyanosis, No edema, Normal pulses, No tenderness/swelling Skin: No rashes, No breakdown, No significant lesion Neuro: Normal speech, Strength at 5/5 X4 ext, Normal tone, Sensation intact, Cranial nerves 3-12 NL Psych/Mental Status: Mental status NL, Mood NL Labs/Xrays I reviewed labs, imaging CT scan abdomen pelvis, EKG and all diagnostic studies on this patient from ED records and the medical chart Labs Test 10/16/25 13:41 10/16/25 12:42 Range/Units Troponin I High Sensitivity 17 </=34 ng/L White Blood Count 6.0 4.4-10.8 10^3/uL Red Blood Count 5.00 4.0-5.20 10^6/uL Hemoglobin 15.8 # 12.2-16.2 g/dL Hematocrit 46.7 #H 36.0-46.0 % Mean Corpuscular Volume 93.4 80.0-100.0 fL Mean Corpuscular Hemoglobin 31.6 28.0-32.0 pg Mean Corpuscular Hemoglobin Concent 33.9 32.0-36.0 g/dL Red Cell Distribution Width 13.4 11.8-14.3 % Platelet Count 384 140-450 10^3/uL Mean Platelet Volume 8.4 6.9-10.8 fL Neutrophils (%) (Auto) 73.1 37.0-80.0 % Lymphocytes (%) (Auto) 17.6 10.0-50.0 % Monocytes (%) (Auto) 7.9 0.0-12.0 % Eosinophils (%) (Auto) 0.6 0.0-7.0 % Basophils (%) (Auto) 0.8 0.0-2.0 % Neutrophils # (Auto) 4.4 1.6-8.6 10 ^3/uL Lymphocytes # (Auto) 1.1 0.4-5.4 10 ^3/uL Monocytes # (Auto) 0.5 0-1.3 10 ^3/uL Eosinophils # (Auto) 0 0-0.8 10 ^3/uL Basophils # (Auto) 0 0-0.2 10 ^3/uL Nucleated Red Blood Cells 0.1 % Sodium Level 141 136-145 mmol/L Potassium Level 3.3 L 3.5-5.1 mmol/L Chloride Level 102 98-107 mmol/L Carbon Dioxide Level 25 20-31 mmol/L Anion Gap 14 5-15 Blood Urea Nitrogen 15 9-23 mg/dL Creatinine 0.52 L 0.550-1.02 mg/dL Glomerular Filtration Rate Calc 94 >90 mL/min BUN/Creatinine Ratio 28.8 H 10.0-20.0 Serum Glucose 124 H 74-106 mg/dL Lactic Acid Level 1.2 0.4-2.0 mmol/L Calcium Level 9.9 8.7-10.4 mg/dL Total Bilirubin 2.1 H 0.2-1.0 mg/dL Aspartate Amino Transferase (AST) 77 H 13-40 U/L Alanine Aminotransferase (ALT) 64 H 7-40 U/L Alkaline Phosphatase 87 46-116 U/L Total Protein 7.1 5.7-8.2 g/dL Albumin 4.7 3.2-4.8 g/dL Lipase 27 12-53 U/L SEPSIS Sepsis Screen Date sepsis recognized/suspect: Oct 16, 2025 Time Sepsis recognized/suspect: 120 Recent Procedure: No On Antibiotic Therapy: No Respiratory Rate >20: No Heart Rate >90: No Temp<36 C (96.8 F) or >38.3 C: No SBP <90 or MAP <65 mmHG: No New Acute Mental Status Change: No Is the patient on CPAP, BIPAP,: No Physician Orders Kitchen Work Supervisor (10/16/25 ) Urinalysis (10/16/25 12:04) Chest Portable (10/16/25 12:04) Electrocardigram (10/16/25 12:04) Troponin-I Hs (10/16/25 15:04) Levothyroxine Tablet (Synthroid Tablet) (10/17/25 07:00) Losartan Tablet (Cozaar Tablet) (10/17/25 10:00) Multiple Vitamin Tablet (Mvi Tab) (10/17/25 10:00) (Nf) Citalopram Hydrobromide (10/17/25 10:00) (Nf) [place]-3 Fatty Acids (Fish Oil) (10/17/25 10:00) Potassium Effervesent Tab (Klor-Con/Ef) (10/16/25 15:15) Abdomen Limited (10/16/25 15:03) Magnesium (10/16/25 15:03) Admit (10/16/25 15:03) Allergies (10/16/25 15:03) Code Status (10/16/25 15:03) 0.9% Ns 1000 Ml (10/16/25 15:15) Ondansetron Hcl (Zofran) (10/16/25 15:15) Docusate Sodium Capsule (Colace Capsule) (10/16/25 15:15) Enoxaparin Sodium (Lovenox) (10/17/25 10:00) Complete Blood Count (10/17/25 04:00) Comprehensive Metabolic Panel (10/17/25 04:00) Condition: Stable (10/16/25 15:03) Clear Liq Diet (10/16/25 Dinner) BRP (10/16/25 15:03) Morphine Sulfate Injection (10/16/25 15:15) Sequential Compression Device (10/16/25 ) Nitroglycerin Sublingual (Ntrostat Subli (10/16/25 15:15) Stat Ekg For Chest Pain (10/16/25 15:03) Notify Of Changes From Base (10/16/25 15:03) Facility Examiner For 24 Hours (10/16/25 15:03) Emergency Dysrhythmia Protocol (10/16/25 15:03) Rhythm Strips Once Every Shift (10/16/25 15:03) Vital Signs Date Time Temp Pulse Resp B/P (MAP) Pulse Ox O2 Delivery O2 Flow Rate FiO2 10/16/25 14:47 98.0 98 18 121/60 (80) 95 98.0 10/16/25 12:06 97.9 97 18 130/69 95 97.9 10/16/25 12:04 94 Laboratory Tests Test 10/16/25 12:42 Lactic Acid Level 1.2 mmol/L (0.4-2.0) White Blood Count 6.0 10^3/uL (4.4-10.8) Assessment/Plan Assessment/Plan 80-year-old female admitted for severe epigastric pain with inability to tolerate oral intake, in the setting of chronic pancreatitis and elevated liver enzymes, requiring IV therapy, pain control, and possible GI consultation. acute Severe epigastric pain Pressure-like epigastric pain, severe, persistent History of chronic pancreatitis Start IV Protonix IV fluids Pain control as needed morphine prn Consider GI consult if pain persists ordered carafate for now ordered abd us fu results acute Inability to tolerate oral intake clear liquid diet, advance as tolerated Monitor intake/output acute Hypokalemia Potassium 3.3 Repleted in ED Monitor BMP Transaminitis and hyperbilirubinemia AST 77, ALT 64, total bilirubin 2.1 Trend CMP chronic problems Chronic pancreatitis Known history Monitor for flare lipase normal Atrial fibrillation Rate/rhythm monitoring Hypertension Continue home antihypertensives Depression Continue home medications Tremors History of pneumonia FEN / PPx Fluids: IV normal saline Electrolytes: Monitor and replete as needed Nutrition: Clear liquid diet advance as tolerated DVT Prophylaxis: SCDs GI Prophylaxis: IV Protonix Disposition Admit to medicine for IV fluids, IV PPI therapy, pain control, and monitoring of oral intake. Advance diet as tolerated. GI consult to be considered if pain persists or worsens. Monitor labs and clinical status Plan discussed with: Patient My Orders Orders - JOCELYNE LOO DNP Procedure Category Date Status Time Levothyroxine Tablet PHA 10/17/25 Verified (Synthroid Tablet) 07:00 Losartan Tablet PHA 10/17/25 Verified (Cozaar Tablet) 10:00 Multiple Vitamin PHA 10/17/25 Verified Tablet (Mvi Tab) 10:00 (Nf) Citalopram PHA 10/17/25 Verified Hydrobromide 10:00 (Nf) [place]-3 Fatty PHA 10/17/25 Verified Acids (Fish Oil) 10:00 Potassium Effervesent PHA 10/16/25 Verified Tab (Klor-Con/Ef) 15:15 Abdomen Limited US 10/16/25 Verified 15:03 Magnesium LAB 10/16/25 Verified 15:03 Admit ADMIT 10/16/25 Verified 15:03 Allergies [facility] 10/16/25 Verified 15:03 Code Status CODE 10/16/25 Verified 15:03 0.9% Ns 1000 Ml PHA 10/16/25 Verified 15:15 Ondansetron Hcl PHA 10/16/25 Verified (Zofran) 15:15 Docusate Sodium PHA 10/16/25 Verified Capsule (Colace 15:15 Enoxaparin Sodium PHA 10/17/25 Verified (Lovenox) 10:00 Complete Blood Count LAB 10/17/25 Verified 04:00 Comprehensive LAB 10/17/25 Verified Metabolic Panel 04:00 Condition: Stable [facility] 10/16/25 Verified 15:03 Clear Liq Diet DIET 10/16/25 Verified Dinner BRP [facility] 10/16/25 Verified 15:03 Morphine Sulfate [facility] 10/16/25 Verified Injection 15:15 Sequential [facility] 10/16/25 Verified Compression Device Nitroglycerin [facility] 10/16/25 Verified Sublingual (Ntrostat 15:15 Stat Ekg For Chest [facility] 10/16/25 Verified Pain 15:03 Notify Md Of Changes [facility] 10/16/25 Verified From Base 15:03 Facility Examiner For [facility] 10/16/25 Verified 24 Hours 15:03 Emergency Dysrhythmia [facility] 10/16/25 Verified Protocol 15:03 Rhythm Strips Once [facility] 10/16/25 Verified Every Shift 15:03 Date of Service: Oct 16, 2025 Billing Provider: JOCELYNE LOO DNP Common Visit Codes: [id number] INP/OBS CARE (HIGH) JOCELYNE LOO DNP Oct 16, 2025 15:07
[2025-10-16] MEDS ORDERED: MORPHINE SULFATE INJ 2 MG/ml SYRG IV PRN (15:15)
[2025-10-16] MEDS ORDERED: NITROGLYCERIN 0.4 MG SL TAB SL PRN (15:15)
[2025-10-16] MEDS ORDERED: DOCUSATE SOD 100 MG CAP PO PRN (15:15)
[2025-10-16] MEDS: ONDANSETRON HCL 4 MG/2 ML VIAL IV ONE (15:21)
[2025-10-16] MEDS: SODIUM CHLORIDE 0.9% 1,000 ML IV ONE (15:22)
[2025-10-16] MEDS: PANTOPRAZOLE 40 MG/10 ML VIAL INJ IV ONE (15:26)
[2025-10-16] MEDS: POTASSIUM EFFERVESENT TAB 25 MEQ PO ONE (15:26)
[2025-10-16 16:10] VITALS: BP 153/80; PULSE 84; RESP 18; TEMP 98.4; O2SAT 94
[2025-10-16 16:29] VITALS: BP 153/80; PULSE 84; RESP 16; TEMP 98.4; O2SAT 94
--- NOTE | 2025-10-16 16:32 | DVH ---
INDICATION: eval for epigastric pain TECHNIQUE: Multiple real-time sonographic images of the abdomen were obtained. COMPARISON: None FINDINGS: The liver is heterogeneous in echogenicity. The liver measures 10.79 cm. No intrahepatic biliary ductal dilatation is noted. The common duct measures 12 mm cm and is unremarkable. No pericholecystic fluid is noted. The right kidney measures 9.16 cm. No hydronephrosis. The left kidney measures 11.28 cm. No hydronephrosis. The pancreas is not well visualized due to obscuration from bowel gas. The visualized portions of the IVC and aorta are grossly unremarkable. IMPRESSION: 1. Gallbladder is been surgically removed. Common bile duct measures 10-11 mm 2. Mild right pyelocaliectasis.
[2025-10-16 17:09] VITALS: RESP 16; O2SAT 94
[2025-10-16] MEDS: SODIUM CHLORIDE 0.9% 1,000 ML IV SCH (17:09)
[2025-10-16 17:32] LABS: Urine Protein, UAD TRACE (Negative)
[2025-10-16] MEDS: DICYCLOMINE HCL 10 MG CAP PO SCH (18:18)
[2025-10-16 21:00] VITALS: BP 147/68; PULSE 83; RESP 19; TEMP 98.6; O2SAT 94
[2025-10-16] MEDS: SUCRALFATE 1 GM/10 ML ORAL SUSP PO SCH (21:56)
[2025-10-17] VITALS (8 sets, daily range): BP systolic 135–150; BP diastolic 63–74; PULSE 70–84; RESP 14–20; TEMP 97.5–98.7; O2SAT 94–96
[2025-10-17] MEDS: LEVOTHYROXINE SODIUM 100 MCG TAB PO SCH (06:40)
[2025-10-17 08:07] LABS: Hematocrit 38.4 % (36.0-46.0); Hemoglobin 12.9 g/dL (12.2-16.2); Mean Corpuscular Hemoglobin 31.4 pg (28.0-32.0); Mean Corpuscular Volume 93.3 fL (80.0-100.0); Nucleated Red Blood Cells % 0.1 %
[2025-10-17 08:14] LABS: Alanine Aminotransferase 40 U/L (7-40); Albumin 3.6 g/dL (3.2-4.8); Alkaline Phosphatase 67 U/L (46-116); Anion Gap 13 (5-15); BUN/Creatinine Ratio 21.1 (10.0-20.0); Calcium 8.9 mg/dL (8.7-10.4); Carbon Dioxide 25 mmol/L (20-31); Chloride 104 mmol/L (98-107); Glucose 79 mg/dL (74-106); Sodium 142 mmol/L (136-145)
[2025-10-17 08:16] LABS: Bilirubin, Total 1.5 mg/dL (0.2-1.0); Blood Urea Nitrogen 8 mg/dL (9-23); Potassium 3.0 mmol/L (3.5-5.1); Total Protein 5.7 g/dL (5.7-8.2)
[2025-10-17] MEDS: MULTIPLE VITAMIN TAB PO SCH (09:37)
[2025-10-17] MEDS: PANTOPRAZOLE 40 MG/10 ML VIAL INJ IV SCH (09:37)
[2025-10-17] MEDS: ENOXAPARIN SOD 30 MG/0.3 ML SYRINGE SC SCH (09:37)
[2025-10-17] MEDS: LOSARTAN POTASSIUM 50 MG TAB PO SCH (09:37)
[2025-10-17] MEDS: CITALOPRAM HYDROBR 20 MG TAB PO SCH (09:38)
[2025-10-17] MEDS: Omega-3 Fatty Acids (Fish Oil) 1,000 MG CAP PO SCH (09:39)
--- NOTE | 2025-10-17 10:10 | ECG ---
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
--- NOTE | 2025-10-17 12:21 | DVHPN2 ---
Reviewed: Care Plan, H&P, Labs, Medications, Previous Orders, Radiology Changes from previous H/P or p: No Changes Eyes: No Pain, No Vision change, No Conjunctivae inflammation, No Eyelid inflammation, No Other, No Redness ENT: No Ear pain, No Ear discharge, No Nose pain, No Nose discharge, No Nose congestion, No Mouth pain, No Mouth swelling, No Throat pain, No Throat swelling, No Other Cardiovascular: No Chest Pain, No Palpitations, No Orthopnea, No Paroxysmal Noc. Dyspnea, No Edema, No Lt Headedness, No Other Respiratory: No Cough, No Dry, No Shortness of breath, No SOB with excertion, No Wheezing, No Hemoptysis, No Pleuritic Pain, No Sputum, No Other Gastrointestinal: Nausea, Vomiting, Abdominal Pain; No Diarrhea, No Constipation, No Melena, No Hematochezia, No Other Genitourinary: No Dysuria, No Frequency, No Incontinence, No Hematuria, No Retention, No Other Musculoskeletal: No other, No neck pain, No shoulder pain, No arm pain, No back pain, No hand pain, No leg pain, No foot pain Skin: No Rash, No Lesions, No Jaundice, No Bruising, No Other Objective Vitals Vital Signs Date Time Temp Pulse Resp B/P (MAP) Pulse Ox O2 Delivery O2 Flow Rate FiO2 10/17/25 09:37 154/96 10/17/25 09:00 98.4 81 18 95 98.4 10/17/25 08:00 Room Air* 0 21 Intake/Output Intake and Output 10/17/25 07:00 Intake Total 500 ml Output Total 300 ml Balance 200 ml Intake Oral 500 ml Output Urine Total 300 ml Medications Current Medications Medications Dose Ordered Sig/Low Route Start Time Stop Time Status Last Admin Dose Admin Levothyroxine Sodium 100 mcg QAM PO 10/17/25 07:00 10/17/25 06:40 100 MCG Losartan Potassium 50 mg DAILY PO 10/17/25 10:00 10/17/25 09:37 50 MG Multivitamins 1 tab DAILY PO 10/17/25 10:00 10/17/25 09:37 1 TAB Citalopram Hydrobromide 20 mg DAILY PO 10/17/25 10:00 10/17/25 09:38 20 MG Patient Own Medication 1,000 mg DAILY PO 10/17/25 10:00 Sodium Chloride 1,000 ml @ 100 mls/hr Q10H IV 10/16/25 15:15 10/17/25 01:15 100 MLS/HR Ondansetron HCl 4 mg Q4HP PRN IV 10/16/25 15:15 Docusate Sodium 100 mg BIDPRN PRN PO 10/16/25 15:15 Enoxaparin Sodium 30 mg DAILY SC 10/17/25 10:00 10/17/25 09:37 30 MG Morphine Sulfate 2 mg Q4HPRN PRN IV 10/16/25 15:15 Hold Nitroglycerin 0.4 mg Q5MINP PRN SL 10/16/25 15:15 Pantoprazole Sodium 40 mg DAILY IV 10/17/25 10:00 10/17/25 09:37 40 MG Sucralfate 1 gm TID@0600,1130,2200 PO 10/16/25 22:00 10/17/25 12:02 1 GM Dicyclomine HCl 20 mg QID PO 10/16/25 18:00 10/17/25 12:02 20 MG Laboratory Results Laboratory Tests 10/17/25 05:38 Chemistry Test 10/16/25 12:42 10/16/25 13:41 10/17/25 05:38 Albumin 4.7 g/dL (3.2-4.8) 3.6 g/dL (3.2-4.8) Calcium Level 9.9 mg/dL (8.7-10.4) 8.9 mg/dL (8.7-10.4) Total Protein 7.1 g/dL (5.7-8.2) 5.7 g/dL (5.7-8.2) Magnesium Level 2.1 mg/dL (1.6-2.6) Lipid panel Test 10/16/25 12:42 Lipase 27 U/L (12-53) LFT Test 10/16/25 12:42 10/17/25 05:38 Alanine Aminotransferase (ALT) 64 U/L (7-40) H 40 U/L (7-40) Alkaline Phosphatase 87 U/L (46-116) 67 U/L (46-116) Aspartate Amino Transferase (AST) 77 U/L (13-40) H 40 U/L (13-40) Total Bilirubin 2.1 mg/dL (0.2-1.0) H 1.5 mg/dL (0.2-1.0) H Urinalysis Test 10/16/25 14:27 Urine Color Yellow (Yellow) Urine Clarity Clear (Clear) Urine pH 6.0 (5.0-9.0) Urine Specific [place] 1.017 (1.001-1.035) Urine Protein Trace (Negative) H Urine Ketones 2+ (Negative) H Urine Blood Negative /uL (Negative) Urine Nitrite Negative (Negative) Urine Bilirubin Negative (Negative) Urine Urobilinogen Normal mg/dL (Negative) Urine Leukocyte Esterase Negative /uL (Negative) Urine RBC 1 /hpf (0 - 4) Urine Microscopic WBC 5 /HPF (0-5) Urine Squamous Epithelial Cells Few /hpf (<5) Urine Bacteria None seen /hpf (None Seen) Urine Hyaline Casts Mod /lpf (0 - 2) Urine Mucus Few (None Seen) Urine Glucose Normal mg/dL (Normal) Labs and/or images reviewed: Labs reviewed by me, Image(s) reviewed by me Assessment/Plan Assessment/Plan Acute severe epigastric pain Nausea vomiting: GI consult for Dr. Shanell Villavicencio, pantoprazole, Carafate Severe hypokalemia potassium 3.3 Elevated liver function tests Hyperbilirubinemia bilirubin 2.21 Lipase normal Atrial fibrillation Dilated CBD 10-11 mm, MRCP ordered History of cholecystectomy Hypertension Depression History of pneumonia Chronic tremors Time spent 70 minutes Advanced care planning time 20 minutes Patient is full code PCP Dr.A Nazario Cardiology Dr. Turpin Yoel at bedside Plan discussed with: Patient Date of Service: Oct 17, 2025 Billing Provider: ZELDA CRUZ MD Common Visit Codes: [id number] CARE 30-74 MIN ZELDA CRUZ MD Oct 17, 2025 12:21
--- NOTE | 2025-10-17 20:26 | DVHINCON2 ---
Date of service: Oct 17, 2025 Referring Physician Alysia Reed Reason for Consultation Abdominal pain History of Present Illness 80-year-old female with past medical history of chronic pancreatitis, prior pneumonia, hypertension, atrial fibrillation, depression, and tremors presents with inability to eat or drink for the past two days prior to Thanksgiving due to severe epigastric pain. She describes the pain as pressure-like, with no ripping or tearing sensation, and reports no alleviating or aggravating factors. She denies diarrhea and fever. She reports nausea and vomiting without blood. The patient states she was supposed to follow up with her primary care physician for an outpatient EGD but has not yet done so. Patient had mild elevation in liver enzymes which are trending downwards. No GI bleeding is reported Past Medical History chronic pancreatitis, prior pneumonia, hypertension, atrial fibrillation, depression, and tremors Past Surgical History Cholecystectomy Family History: Alzheimer's disease G8 MOTHER FH: dementia G8 MOTHER Hypercholesterolemia Hypertension Allergies: Coded Allergies: Codeine (Verified Allergy, Unknown, 05/03/25) Uncoded Allergies: PAPER TAPE (Allergy, Unknown, 09/21/21) Home Meds Reported Medications Citalopram Hydrobromide (Citalopram Hydrobromide) 40 Mg Tab, 1 TAB PO DAILY 05/03/25 [place]-3 Fatty Acids (Fish Oil) 1,000 Mg Cap, 1000 MG PO DAILY, CAP 09/22/21 Multiple Vitamin (Multivitamins) Tab, 1 TAB PO DAILY, #90 TAB 3 Refills 09/22/21 Albuterol Sulfate (Proair Digihaler) 108 Mcg/Act Aer, 108 MCG IN, AER 09/22/21 Hydrochlorothiazide (Hydrochlorothiazide) 25 Mg Tab, 25 MG PO DAILY for 30 Days, MG 09/22/21 Losartan Potassium (Losartan Potassium) 50 Mg Tab, 50 MG PO DAILY for 30 Days, MG 09/22/21 Levothyroxine Sodium (Levothyroxine Sodium) 100 Mcg Tab, 100 MCG PO QAM for 30 Days, MCG 09/22/21 Simvastatin (Simvastatin) 20 Mg Tab, 20 MG PO DAILY for 30 Days 09/22/21 Discontinued Reported Medications Propranolol HCl (Propranolol Hydrochloride) 160 Mg Cap, 160 MG PO DAILY 05/03/25 Amitriptyline HCl (Amitriptyline Hydrochlori) 100 Mg Tab, 1 TAB PO HS 05/03/25 Propranolol HCl (Propranolol Hydrochloride) 20 Mg Tab, 20 MG PO BIDP PRN for SBP>150, TAB 09/22/21 Aspirin (Aspirin) 325 Mg Tab, 325 MG PO DAILY for 30 Days, MG 09/22/21 Current Medications Current Medications Medications (Trade) Dose Ordered Sig/Low Route PRN Reason Start Time Stop Time Status Last Admin Levothyroxine Sodium (Synthroid Tablet) 100 mcg QAM PO 10/17/25 07:00 10/17/25 06:40 Losartan Potassium (Cozaar Tablet) 50 mg DAILY PO 10/17/25 10:00 10/17/25 09:37 Multivitamins (Mvi Tab) 1 tab DAILY PO 10/17/25 10:00 10/17/25 09:37 Citalopram Hydrobromide (CeleXA TABLET) 20 mg DAILY PO 10/17/25 10:00 10/17/25 09:38 Patient Own Medication 1,000 mg DAILY PO 10/17/25 10:00 Enoxaparin Sodium (Lovenox) 30 mg DAILY SC 10/17/25 10:00 10/17/25 09:37 Pantoprazole Sodium (Protonix) 40 mg DAILY IV 10/17/25 10:00 10/17/25 09:37 Sucralfate (Carafate Susp) 1 gm TID@0600,1130,2200 PO 10/16/25 22:00 10/17/25 12:02 Vital Signs Vital Signs Date Time Temp Pulse Resp B/P (MAP) Pulse Ox O2 Delivery O2 Flow Rate FiO2 10/17/25 17:00 98.5 79 20 150/73 (98) 94 98.5 10/17/25 08:00 Room Air* 0 21 Labs/Diagnostic Data Labs Test 10/17/25 05:38 10/16/25 16:05 10/16/25 14:27 10/16/25 13:41 Range/Units White Blood Count 5.2 4.4-10.8 10^3/uL Red Blood Count 4.11 4.0-5.20 10^6/uL Hemoglobin 12.9 # 12.2-16.2 g/dL Hematocrit 38.4 # 36.0-46.0 % Mean Corpuscular Volume 93.3 80.0-100.0 fL Mean Corpuscular Hemoglobin 31.4 28.0-32.0 pg Mean Corpuscular Hemoglobin Concent 33.6 32.0-36.0 g/dL Red Cell Distribution Width 13.4 11.8-14.3 % Platelet Count 292 140-450 10^3/uL Mean Platelet Volume 8.6 6.9-10.8 fL Neutrophils (%) (Auto) 62.1 37.0-80.0 % Lymphocytes (%) (Auto) 23.7 10.0-50.0 % Monocytes (%) (Auto) 9.7 0.0-12.0 % Eosinophils (%) (Auto) 3.7 0.0-7.0 % Basophils (%) (Auto) 0.8 0.0-2.0 % Neutrophils # (Auto) 3.2 1.6-8.6 10 ^3/uL Lymphocytes # (Auto) 1.2 0.4-5.4 10 ^3/uL Monocytes # (Auto) 0.5 0-1.3 10 ^3/uL Eosinophils # (Auto) 0.2 0-0.8 10 ^3/uL Basophils # (Auto) 0 0-0.2 10 ^3/uL Nucleated Red Blood Cells 0.1 % Sodium Level 142 136-145 mmol/L Potassium Level 3.0 L 3.5-5.1 mmol/L Chloride Level 104 98-107 mmol/L Carbon Dioxide Level 25 20-31 mmol/L Anion Gap 13 5-15 Blood Urea Nitrogen 8 L 9-23 mg/dL Creatinine 0.38 L 0.550-1.02 mg/dL Glomerular Filtration Rate Calc 101 >90 mL/min BUN/Creatinine Ratio 21.1 H 10.0-20.0 Serum Glucose 79 74-106 mg/dL Calcium Level 8.9 8.7-10.4 mg/dL Total Bilirubin 1.5 H 0.2-1.0 mg/dL Aspartate Amino Transferase (AST) 40 13-40 U/L Alanine Aminotransferase (ALT) 40 7-40 U/L Alkaline Phosphatase 67 46-116 U/L Total Protein 5.7 5.7-8.2 g/dL Albumin 3.6 3.2-4.8 g/dL Troponin I High Sensitivity 15 </=34 ng/L Urine Color Yellow Yellow Urine Clarity Clear Clear Urine pH 6.0 5.0-9.0 Urine Specific [place] 1.017 1.001-1.035 Urine Protein Trace H Negative Urine Ketones 2+ H Negative Urine Blood Negative Negative /uL Urine Nitrite Negative Negative Urine Bilirubin Negative Negative Urine Urobilinogen Normal Negative mg/dL Urine Leukocyte Esterase Negative Negative /uL Urine RBC 1 0 - 4 /hpf Urine Microscopic WBC 5 0-5 /HPF Urine Squamous Epithelial Cells Few <5 /hpf Urine Bacteria None seen None Seen /hpf Urine Hyaline Casts Mod 0 - 2 /lpf Urine Mucus Few None Seen Urine Glucose Normal Normal mg/dL Magnesium Level 2.1 1.6-2.6 mg/dL Test 10/16/25 12:42 Range/Units Lactic Acid Level 1.2 0.4-2.0 mmol/L Lipase 27 12-53 U/L RUQ USG No stones Problems(with codes): (1) Chronic recurrent pancreatitis (2) Intractable abdominal pain (3) Epigastric abdominal pain Plan/Recommendation Plan Consider MRCP to evaluate the biliary tree Patient has had prior cholecystectomy Suspected sphincter of Oddi dysfunction or possible CBD stone Protonix 40 mg IV daily If the above workup is negative and symptoms continue I will be standing by for an endoscopy I will follow up patient with you Plan discussed with: Other (Nurse) NINA SOLOMON MD Oct 17, 2025 20:26
[2025-10-17] MEDS: MELATONIN 5 MG TAB PO ONE (21:31)
[2025-10-18] VITALS (7 sets, daily range): BP systolic 131–148; BP diastolic 59–90; PULSE 71–102; RESP 14–19; TEMP 97.7–98.5; O2SAT 92–98
--- NOTE | 2025-10-18 11:13 | DVHPN2 ---
Reviewed: Care Plan, H&P, Labs, Medications, Previous Orders, Radiology Changes from previous H/P or p: No Changes Eyes: No Pain, No Vision change, No Conjunctivae inflammation, No Eyelid inflammation, No Other, No Redness ENT: No Ear pain, No Ear discharge, No Nose pain, No Nose discharge, No Nose congestion, No Mouth pain, No Mouth swelling, No Throat pain, No Throat swelling, No Other Cardiovascular: No Chest Pain, No Palpitations, No Orthopnea, No Paroxysmal Noc. Dyspnea, No Edema, No Lt Headedness, No Other Respiratory: No Cough, No Dry, No Shortness of breath, No SOB with excertion, No Wheezing, No Hemoptysis, No Pleuritic Pain, No Sputum, No Other Gastrointestinal: Nausea, Vomiting, Abdominal Pain; No Diarrhea, No Constipation, No Melena, No Hematochezia, No Other Genitourinary: No Dysuria, No Frequency, No Incontinence, No Hematuria, No Retention, No Other Musculoskeletal: No other, No neck pain, No shoulder pain, No arm pain, No back pain, No hand pain, No leg pain, No foot pain Skin: No Rash, No Lesions, No Jaundice, No Bruising, No Other Objective Vitals Vital Signs Date Time Temp Pulse Resp B/P (MAP) Pulse Ox O2 Delivery O2 Flow Rate FiO2 10/18/25 10:00 144/64 10/18/25 09:00 98.4 83 16 96 98.4 10/17/25 20:10 Room Air* 0 21 Intake/Output Intake and Output 10/18/25 07:00 Intake Total 1180 ml Balance 1180 ml Intake Oral 1180 ml # Voids 5 Medications Current Medications Medications Dose Ordered Sig/Low Route Start Time Stop Time Status Last Admin Dose Admin Levothyroxine Sodium 100 mcg QAM PO 10/17/25 07:00 10/18/25 06:00 100 MCG Losartan Potassium 50 mg DAILY PO 10/17/25 10:00 10/18/25 10:00 50 MG Multivitamins 1 tab DAILY PO 10/17/25 10:00 10/18/25 10:00 1 TAB Citalopram Hydrobromide 20 mg DAILY PO 10/17/25 10:00 10/18/25 10:00 20 MG Patient Own Medication 1,000 mg DAILY PO 10/17/25 10:00 Ondansetron HCl 4 mg Q4HP PRN IV 10/16/25 15:15 Docusate Sodium 100 mg BIDPRN PRN PO 10/16/25 15:15 Enoxaparin Sodium 30 mg DAILY SC 10/17/25 10:00 10/18/25 10:00 30 MG Morphine Sulfate 2 mg Q4HPRN PRN IV 10/16/25 15:15 Hold Nitroglycerin 0.4 mg Q5MINP PRN SL 10/16/25 15:15 Pantoprazole Sodium 40 mg DAILY IV 10/17/25 10:00 10/18/25 10:00 40 MG Sucralfate 1 gm TID@0600,1130,2200 PO 10/16/25 22:00 10/18/25 05:56 1 GM Dicyclomine HCl 20 mg QID PO 10/16/25 18:00 10/18/25 05:56 20 MG Melatonin 5 mg HS PO 10/18/25 22:00 Laboratory Results Laboratory Tests 10/17/25 05:38 Urinalysis Test 10/16/25 14:27 Urine Color Yellow (Yellow) Urine Clarity Clear (Clear) Urine pH 6.0 (5.0-9.0) Urine Specific [place] 1.017 (1.001-1.035) Urine Protein Trace (Negative) H Urine Ketones 2+ (Negative) H Urine Blood Negative /uL (Negative) Urine Nitrite Negative (Negative) Urine Bilirubin Negative (Negative) Urine Urobilinogen Normal mg/dL (Negative) Urine Leukocyte Esterase Negative /uL (Negative) Urine RBC 1 /hpf (0 - 4) Urine Microscopic WBC 5 /HPF (0-5) Urine Squamous Epithelial Cells Few /hpf (<5) Urine Bacteria None seen /hpf (None Seen) Urine Hyaline Casts Mod /lpf (0 - 2) Urine Mucus Few (None Seen) Urine Glucose Normal mg/dL (Normal) Labs and/or images reviewed: Labs reviewed by me, Image(s) reviewed by me Assessment/Plan Assessment/Plan Acute severe epigastric pain Nausea vomiting: GI consult for Dr. Shanell Villavicencio, pantoprazole, Carafate Severe hypokalemia potassium 3.3 Elevated liver function tests Hyperbilirubinemia bilirubin 2.21 Lipase normal Atrial fibrillation Dilated CBD 10-11 mm, MRCP pending History of cholecystectomy Hypertension Depression History of pneumonia Chronic tremors Time spent 50 minutes Advanced care planning time 20 minutes Patient is full code PCP Dr.A Nazario Cardiology Dr. Turpin Yoel at bedside Plan discussed with: Patient My Orders Orders - ZELDA CRUZ MD Procedure Category Date Status Time * [facility] Financial Representative CONS 10/17/25 Transmitted 12:12 Date of Service: Oct 18, 2025 Billing Provider: ZELDA CRUZ MD Common Visit Codes: [id number] INP/OBS CARE(HIGH) ZELDA CRUZ MD Oct 18, 2025 11:13
--- NOTE | 2025-10-18 13:04 | DVH ---
MRCP HISTORY: Rule out CBD stones or dilatation COMPARISON: MRI MRCP MRI on DOS: 10/12/25, MRI MRI ABDOMEN NO CONTRAST on DOS: 10/12/25 PROCEDURE: Multiplanar multisequence MRI images were obtained of the abdomen without intravenous contrast Additional MIPS were obtained of the biliary system. FINDINGS: Bile ducts: Intrahepatic ducts: Non-dilated. Extrahepatic ducts: Non-dilated. Common bile duct: Common bile duct is prominent measuring 0.8 cm. Filling defects: No appreciable stones or sludge are present in the common bile duct. Stricture: None. Gallbladder: Post cholecystectomy. Pancreas: Pancreatic duct: No ductal dilatation. Lesions: Unchanged 1.1 cm T2 hyperintense structure at the uncinate process of the pancreas possibly representing a cyst or IPMN. Liver: Signal intensity: Homogenous. Contour: Smooth. Size: Normal. Lesions: No focal liver lesion. ADDITIONAL : Lung base: Trace left pleural effusion. Pancreas: Fatty atrophic changes of the pancreas. Spleen:Normal. Bowel:Normal. Adrenal glands:Normal. Kidneys and ureters: Few punctate bilateral renal cysts are present. No hydronephrosis. Lymph nodes:Normal. Peritoneum:Normal. Vessels:Normal. Abdominal wall:Normal. Bone: Scoliosis. No aggressive bone lesions IMPRESSION: Sensitivity of the examination is extremely limited secondary to patient motion artifact and suboptimal MRCP sequences. No evidence of choledocholithiasis. Unchanged 1.1 cm T2 hyperintense structure at the uncinate process of the pancreas possibly representing a cyst or IPMN. Trace left pleural effusion. According to 2017 ACR incidental findings committee, pancreatic cystic lesions that are less than 1.5 cm in size found incidentally on patients greater than 65 years of age should be imaged with contrast-enhanced MRI for pancreas protocol or CT every two years for 5 years until stability of 10 years is confirmed. If after this time the cystic lesion demonstrates stability, no further follow-up is recommended.
--- NOTE | 2025-10-18 14:19 | DVHPN2 ---
Subjective Patient complaining of epigastric discomfort Has nausea but denies any vomiting. No hematemesis History of occasional GERD symptoms No EGD in past Status post colonoscopy two years ago in the gastric group Patient had one episode of loose stool today no melena or red blood in stool Reviewed: Care Plan, H&P, Labs, Medications, Previous Orders, Radiology Changes from previous H/P or p: No Changes Objective Vitals Vital Signs Date Time Temp Pulse Resp B/P (MAP) Pulse Ox O2 Delivery O2 Flow Rate FiO2 10/18/25 12:00 97.9 102 19 140/88 (105) 96 97.9 10/18/25 08:00 Room Air* 0 21 Intake/Output Intake and Output 10/18/25 07:00 Intake Total 1180 ml Balance 1180 ml Intake Oral 1180 ml # Voids 5 Exam General alert and oriented no apparent distress Lungs clear to auscultation Cardio regular rate and rhythm Abdomen positive epigastric tenderness positive bowel sounds Medications Current Medications Medications Dose Ordered Sig/Low Route Start Time Stop Time Status Last Admin Dose Admin Levothyroxine Sodium 100 mcg QAM PO 10/17/25 07:00 10/18/25 06:00 100 MCG Losartan Potassium 50 mg DAILY PO 10/17/25 10:00 10/18/25 10:00 50 MG Multivitamins 1 tab DAILY PO 10/17/25 10:00 10/18/25 10:00 1 TAB Citalopram Hydrobromide 20 mg DAILY PO 10/17/25 10:00 10/18/25 10:00 20 MG Patient Own Medication 1,000 mg DAILY PO 10/17/25 10:00 Ondansetron HCl 4 mg Q4HP PRN IV 10/16/25 15:15 Docusate Sodium 100 mg BIDPRN PRN PO 10/16/25 15:15 Enoxaparin Sodium 30 mg DAILY SC 10/17/25 10:00 10/18/25 10:00 30 MG Morphine Sulfate 2 mg Q4HPRN PRN IV 10/16/25 15:15 Hold Nitroglycerin 0.4 mg Q5MINP PRN SL 10/16/25 15:15 Pantoprazole Sodium 40 mg DAILY IV 10/17/25 10:00 10/18/25 10:00 40 MG Sucralfate 1 gm TID@0600,1130,2200 PO 10/16/25 22:00 10/18/25 11:30 1 GM Dicyclomine HCl 20 mg QID PO 10/16/25 18:00 10/18/25 12:00 20 MG Melatonin 5 mg HS PO 10/18/25 22:00 Laboratory Results Laboratory Tests 10/17/25 05:38 Urinalysis Test 10/16/25 14:27 Urine Color Yellow (Yellow) Urine Clarity Clear (Clear) Urine pH 6.0 (5.0-9.0) Urine Specific [place] 1.017 (1.001-1.035) Urine Protein Trace (Negative) H Urine Ketones 2+ (Negative) H Urine Blood Negative /uL (Negative) Urine Nitrite Negative (Negative) Urine Bilirubin Negative (Negative) Urine Urobilinogen Normal mg/dL (Negative) Urine Leukocyte Esterase Negative /uL (Negative) Urine RBC 1 /hpf (0 - 4) Urine Microscopic WBC 5 /HPF (0-5) Urine Squamous Epithelial Cells Few /hpf (<5) Urine Bacteria None seen /hpf (None Seen) Urine Hyaline Casts Mod /lpf (0 - 2) Urine Mucus Few (None Seen) Urine Glucose Normal mg/dL (Normal) Labs and/or images reviewed: Image(s) reviewed by me (Reviewed MRCP results no choledocholithiasis) Assessment/Plan Assessment/Plan Epigastric abdominal pain Chronic recurrent pancreatitis Elevated total bilirubin Plan Discussed with Dr. Villavicencio MRCP pending Possible EGD to be considered if symptoms persist and based on the results of MRCP We will continue to monitor patient Plan discussed with: Patient Date of Service: Oct 18, 2025 Billing Provider: LISANDRO CRUZ Common Visit Codes: [id number] INP/OBS CARE(HIGH) Secondary Visit Codes: [id number] CARE PLAN ADDL 30MIN LISANDRO CRUZ Oct 18, 2025 14:19
[2025-10-18] MEDS: MELATONIN 5 MG TAB PO SCH (21:13)
[2025-10-18 23:58] LABS: INR 1.12 (0.9-1.15); Partial Thromboplastin Time 24.7 SEC (24.5-34.5); Prothrombin Time 11.7 sec (9.3-11.8)
[2025-10-19] VITALS (8 sets, daily range): BP systolic 135–150; BP diastolic 59–81; PULSE 66–85; RESP 12–20; TEMP 97.4–98.7; O2SAT 95–97
[2025-10-19] MEDS ORDERED: NALOXONE HCL 0.4 MG/ML VIAL ONE (08:15)
[2025-10-19] MEDS ORDERED: FLUMAZENIL 0.1 MG/ML INJ 10ML MDV IV ONE (08:15)
--- NOTE | 2025-10-19 11:21 | DVHPN2 ---
Reviewed: Care Plan, H&P, Labs, Medications, Previous Orders, Radiology Changes from previous H/P or p: No Changes Objective Vitals Vital Signs Date Time Temp Pulse Resp B/P (MAP) Pulse Ox O2 Delivery O2 Flow Rate FiO2 10/19/25 10:00 137/70 10/19/25 08:25 97.4 74 17 96 97.4 10/18/25 20:19 Room Air* 0 21 Intake/Output Intake and Output 10/19/25 07:00 Intake Total 588 ml Output Total 300 ml Balance 288 ml Intake Oral 588 ml Output Urine Total 300 ml # Voids 4 # Bowel Movements 1 Medications Current Medications Medications Dose Ordered Sig/Low Route Start Time Stop Time Status Last Admin Dose Admin Levothyroxine Sodium 100 mcg QAM PO 10/17/25 07:00 10/18/25 06:00 100 MCG Losartan Potassium 50 mg DAILY PO 10/17/25 10:00 10/19/25 10:00 50 MG Multivitamins 1 tab DAILY PO 10/17/25 10:00 10/19/25 10:00 1 TAB Citalopram Hydrobromide 20 mg DAILY PO 10/17/25 10:00 10/19/25 10:00 20 MG Patient Own Medication 1,000 mg DAILY PO 10/17/25 10:00 Ondansetron HCl 4 mg Q4HP PRN IV 10/16/25 15:15 Docusate Sodium 100 mg BIDPRN PRN PO 10/16/25 15:15 Morphine Sulfate 2 mg Q4HPRN PRN IV 10/16/25 15:15 Hold Nitroglycerin 0.4 mg Q5MINP PRN SL 10/16/25 15:15 Pantoprazole Sodium 40 mg DAILY IV 10/17/25 10:00 10/19/25 10:00 40 MG Sucralfate 1 gm TID@0600,1130,2200 PO 10/16/25 22:00 10/18/25 21:12 1 GM Dicyclomine HCl 20 mg QID PO 10/16/25 18:00 10/18/25 21:11 20 MG Melatonin 5 mg HS PO 10/18/25 22:00 10/18/25 21:13 5 MG Laboratory Results Laboratory Tests 10/17/25 05:38 Coagulation Test 10/18/25 23:29 Prothrombin Time 11.7 sec (9.3-11.8) Prothrombin Time INR 1.12 (0.9-1.15) Activated Partial Thromboplast Time 24.7 SEC (24.5-34.5) Urinalysis Test 10/16/25 14:27 Urine Color Yellow (Yellow) Urine Clarity Clear (Clear) Urine pH 6.0 (5.0-9.0) Urine Specific [place] 1.017 (1.001-1.035) Urine Protein Trace (Negative) H Urine Ketones 2+ (Negative) H Urine Blood Negative /uL (Negative) Urine Nitrite Negative (Negative) Urine Bilirubin Negative (Negative) Urine Urobilinogen Normal mg/dL (Negative) Urine Leukocyte Esterase Negative /uL (Negative) Urine RBC 1 /hpf (0 - 4) Urine Microscopic WBC 5 /HPF (0-5) Urine Squamous Epithelial Cells Few /hpf (<5) Urine Bacteria None seen /hpf (None Seen) Urine Hyaline Casts Mod /lpf (0 - 2) Urine Mucus Few (None Seen) Urine Glucose Normal mg/dL (Normal) Labs and/or images reviewed: Labs reviewed by me, Image(s) reviewed by me Assessment/Plan Assessment/Plan Acute severe epigastric pain Nausea vomiting: GI consult for Dr. Shanell Villavicencio appreciated, pantoprazole, Carafate Severe hypokalemia potassium 3.3 replace potassium Elevated liver function tests Hyperbilirubinemia bilirubin 2.2 Lipase normal Atrial fibrillation Dilated CBD 10-11 mm, MRCP negative for any choledocholithiasis 1.1 cm cyst in the tail of the pancreas by MRCP History of cholecystectomy Hypertension Depression History of pneumonia Chronic tremors Time spent 50 minutes Advanced care planning time 20 minutes Patient is full code PCP Dr.A Nazario Cardiology Dr. Turpin Yoel at bedside Patient refused EGD this morning as she is feeling very weak, we will order IV fluids and request Dr. Villavicencio to do EGD tomorrow morning for which the patient is willing. Plan discussed with: Patient My Orders Orders - ZELDA CRUZ MD Procedure Category Date Status Time Mrcp Mri MRI 10/18/25 Resulted 11:33 Date of Service: Oct 19, 2025 Billing Provider: ZELDA CRUZ MD Common Visit Codes: [id number] INP/OBS CARE(HIGH) ZELDA CRUZ MD Oct 19, 2025 11:21
[2025-10-19] MEDS: LACTATED RINGER'S 1,000 ML IV SCH (11:30)
[2025-10-19] MEDS ORDERED: SODIUM CHLORIDE LOCK 10 ML ONE (15:13)
[2025-10-19] MEDS: MIDAZOLAM HCL 5 MG/ML-1ML VIAL ONE (16:19)
[2025-10-19] MEDS: fentaNYL CITRATE 100 MCG/2 ML VL ONE (16:19)
[2025-10-19] MEDS: diphenhydrAMINE HCL 50 MG/1 ML VL ONE (16:19)
[2025-10-19] MEDS: LIDOCAINE VISCOUS 2% 15ML UD ONE (16:19)
--- NOTE | 2025-10-19 16:39 | DVHOP2 ---
Operative Report DATE OF OPERATION: 10/19/25 PROCEDURE: Upper Endoscopy with biopsy. PREOPERATIVE INDICATION: The patient is a 80 -year-old female undergoing endoscopy for epigastric discomfort and dyspepsia POSTOPERATIVE DIAGNOSES: 1. She has a 1 cm sliding-type hiatal hernia with no significant erosive esophagitis 2. Minimal gastritis involving the antrum and body of the stomach otherwise normal examination of the 2nd and 3rd part of the duodenum PROCEDURE PERFORMED BY: Nina Villavicencio GI NURSE: Maxwell SCOPE: Olympus videoendoscope. ASA CLASS: 3 PREOPERATIVE MEDICATIONS: Versed 2 mg, Fentanyl 50 mcg, Benadryl 50 mg I administered moderate sedation throughout this _8_ minutes procedure. An independent trained observer pushed medications at my direction, and monitored the patient's level of consciousness and physiological status throughout. PROCEDURE IN DETAIL: After obtaining an informed consent, the patient was placed on left lateral decubitus position. The patient was then sedated with the above medications. A bite block was placed between her teeth. The endoscope was then passed through the oropharynx, into the esophagus, and through the stomach and pylorus up to the second and third part of the duodenum. The endoscope was then withdrawn. The 2nd and 3rd part of the duodenal were normal. The pre-pyloric area and antrum showed minimal gastritis. On retroflexion the fundus and cardia were normal. The endoscope was then withdrawn into distal esophagus Patient had a 1 cm sliding-type hiatal hernia with no significant erosive es ophagitis. Duodenal and gastric biopsies were obtained The remaining distal and proximal esophagus and oropharynx were unremarkable The patient tolerated the procedure well without difficulty. COMPLICATIONS : None SPECIMENS: Duodenal biopsy Gastric biopsy DISPOSITION: Transfer back to the floor Stable PLAN: 1. Await for biopsy result 2. Will place pt on Protonix 40 mg p.o. daily 3. Resume GI soft diet advance as tolerated 4. Patient has a small pancreatic cyst or IPMN which is very small in size and stable no further workup was required just continue observation and repeat MRI in one year, check CA 19 -9 NINA VILLAVICENCIO MD Oct 19, 2025 16:39
[2025-10-20] VITALS (7 sets, daily range): BP systolic 118–155; BP diastolic 62–75; PULSE 64–84; RESP 15–19; TEMP 96.9–98.4; O2SAT 92–97
[2025-10-20 06:59] LABS: Calcium 8.8 mg/dL (8.7-10.4); Chloride 105 mmol/L (98-107); Sodium 143 mmol/L (136-145)
[2025-10-20 07:00] LABS: Anion Gap 12 (5-15); Carbon Dioxide 26 mmol/L (20-31)
[2025-10-20 07:05] LABS: Glucose 90 mg/dL (74-106)
[2025-10-20 07:15] LABS: BUN/Creatinine Ratio 13.2 (10.0-20.0); Blood Urea Nitrogen < 5 mg/dL (9-23); Potassium 2.9 mmol/L (3.5-5.1)
[2025-10-20] MEDS: ONDANSETRON HCL 4 MG/2 ML VIAL IV PRN (09:38)
--- NOTE | 2025-10-20 11:13 | DVHPN2 ---
Reviewed: Care Plan, H&P, Labs, Medications, Previous Orders, Radiology Changes from previous H/P or p: No Changes Objective Vitals Vital Signs Date Time Temp Pulse Resp B/P (MAP) Pulse Ox O2 Delivery O2 Flow Rate FiO2 10/20/25 09:38 144/73 10/20/25 08:51 98.2 84 19 97 98.2 10/19/25 20:00 Room Air* 0 21 Intake/Output Intake and Output 10/20/25 07:00 Intake Total 1300 ml Balance 1300 ml Intake Oral 300 ml IV Total 1000 ml # Voids 4 # Bowel Movements 1 Medications Current Medications Medications Dose Ordered Sig/Low Route Start Time Stop Time Status Last Admin Dose Admin Levothyroxine Sodium 100 mcg QAM PO 10/17/25 07:00 10/20/25 06:24 100 MCG Losartan Potassium 50 mg DAILY PO 10/17/25 10:00 10/20/25 09:38 50 MG Multivitamins 1 tab DAILY PO 10/17/25 10:00 10/20/25 09:38 1 TAB Citalopram Hydrobromide 20 mg DAILY PO 10/17/25 10:00 10/20/25 09:38 20 MG Patient Own Medication 1,000 mg DAILY PO 10/17/25 10:00 Ondansetron HCl 4 mg Q4HP PRN IV 10/16/25 15:15 10/20/25 09:38 4 MG Docusate Sodium 100 mg BIDPRN PRN PO 10/16/25 15:15 Morphine Sulfate 2 mg Q4HPRN PRN IV 10/16/25 15:15 Hold Nitroglycerin 0.4 mg Q5MINP PRN SL 10/16/25 15:15 Pantoprazole Sodium 40 mg DAILY IV 10/17/25 10:00 10/20/25 09:38 40 MG Sucralfate 1 gm TID@0600,1130,2200 PO 10/16/25 22:00 10/20/25 06:24 1 GM Dicyclomine HCl 20 mg QID PO 10/16/25 18:00 10/20/25 06:24 20 MG Melatonin 5 mg HS PO 10/18/25 22:00 10/19/25 21:14 5 MG Lactated Ringer's 1,000 ml @ 125 mls/hr Q8H IV 10/19/25 11:30 10/20/25 06:24 125 MLS/HR Laboratory Results Laboratory Tests 10/17/25 05:38 10/20/25 05:30 Chemistry Test 10/20/25 05:30 Calcium Level 8.8 mg/dL (8.7-10.4) Urinalysis Test 10/16/25 14:27 Urine Color Yellow (Yellow) Urine Clarity Clear (Clear) Urine pH 6.0 (5.0-9.0) Urine Specific [place] 1.017 (1.001-1.035) Urine Protein Trace (Negative) H Urine Ketones 2+ (Negative) H Urine Blood Negative /uL (Negative) Urine Nitrite Negative (Negative) Urine Bilirubin Negative (Negative) Urine Urobilinogen Normal mg/dL (Negative) Urine Leukocyte Esterase Negative /uL (Negative) Urine RBC 1 /hpf (0 - 4) Urine Microscopic WBC 5 /HPF (0-5) Urine Squamous Epithelial Cells Few /hpf (<5) Urine Bacteria None seen /hpf (None Seen) Urine Hyaline Casts Mod /lpf (0 - 2) Urine Mucus Few (None Seen) Urine Glucose Normal mg/dL (Normal) Labs and/or images reviewed: Labs reviewed by me, Image(s) reviewed by me Assessment/Plan Assessment/Plan Acute severe epigastric pain Nausea vomiting: GI consult for Dr. Shanell Villavicencio appreciated, pantoprazole, Carafate Minimal antral gastritis by EGD by Dr. Shanell Villavicencio on 10-19-25 biopsy result pending Severe hypokalemia potassium 3.3 replace potassium Elevated liver function tests Hyperbilirubinemia bilirubin 2.2 Lipase normal Atrial fibrillation Dilated CBD 10-11 mm, MRCP negative for any choledocholithiasis 1.1 cm cyst in the tail of the pancreas by MRCP, GI Dr. Shanell Villavicencio advised repeat MRCP in one year History of cholecystectomy Hypertension Depression History of pneumonia Chronic tremors Time spent 50 minutes Advanced care planning time 20 minutes Patient is full code PCP Dr.A Nazario Cardiology Dr. Turpin Yoel at bedside Started on soft rate and possible DC Plan discussed with: Patient My Orders Orders - ZELDA CRUZ MD Procedure Category Date Status Time Lactated Ringer's PHA 10/19/25 In Process 11:30 Clear Liq Diet DIET 10/19/25 Transmitted Dinner Date of Service: Oct 20, 2025 Billing Provider: ZELDA CRUZ MD Common Visit Codes: [id number] INP/OBS CARE(HIGH) ZELDA CRUZ MD Oct 20, 2025 11:13
--- NOTE | 2025-10-20 16:55 | DVHPN2 ---
Progress Note Date Seen: Oct 20, 2025 Resident Creating Document: WERNER ORELLANA RESIDENT Has the PT tested + for MRSA If YES, has PT been informed?: No Medical Necessity Reason Pt with a Central, PICC or Fol: No Subjective Review of Systems No acute GI complaints Today 1 BM soft Tolerating diet Objective vital signs Vital Sign Date Time Temp Pulse Resp B/P (MAP) Pulse Ox O2 Delivery O2 Flow Rate FiO2 10/20/25 16:33 97.6 74 17 155/71 (99) 96 97.6 10/20/25 08:00 Room Air* 0 21 Total Intake and Output 10/19/25 10/19/25 10/20/25 15:00 23:00 07:00 Intake Total 1300 ml Balance 1300 ml medications Current Medications Medications Dose Ordered Sig/Low Route Start Time Stop Time Status Last Admin Dose Admin Levothyroxine Sodium 100 mcg QAM PO 10/17/25 07:00 10/20/25 06:24 100 MCG Losartan Potassium 50 mg DAILY PO 10/17/25 10:00 10/20/25 09:38 50 MG Multivitamins 1 tab DAILY PO 10/17/25 10:00 10/20/25 09:38 1 TAB Citalopram Hydrobromide 20 mg DAILY PO 10/17/25 10:00 10/20/25 09:38 20 MG Patient Own Medication 1,000 mg DAILY PO 10/17/25 10:00 Ondansetron HCl 4 mg Q4HP PRN IV 10/16/25 15:15 10/20/25 09:38 4 MG Docusate Sodium 100 mg BIDPRN PRN PO 10/16/25 15:15 Morphine Sulfate 2 mg Q4HPRN PRN IV 10/16/25 15:15 Hold Nitroglycerin 0.4 mg Q5MINP PRN SL 10/16/25 15:15 Pantoprazole Sodium 40 mg DAILY IV 10/17/25 10:00 10/20/25 09:38 40 MG Sucralfate 1 gm TID@0600,1130,2200 PO 10/16/25 22:00 10/20/25 12:11 1 GM Dicyclomine HCl 20 mg QID PO 10/16/25 18:00 10/20/25 12:11 20 MG Melatonin 5 mg HS PO 10/18/25 22:00 10/19/25 21:14 5 MG Lactated Ringer's 1,000 ml @ 125 mls/hr Q8H IV 10/19/25 11:30 10/20/25 06:24 125 MLS/HR Examination General alert and oriented no apparent distress Lungs clear to auscultation Cardio regular rate and rhythm Abdomen positive epigastric tenderness positive bowel sounds laboratory and microbiology Laboratory Tests 10/20/25 05:30 10/17/25 05:38 Test 10/20/25 05:30 Range/Units Serum Glucose 90 74-106 mg/dL Problem List/Assessment/Plan Problem List/Assessment/Plan Epigastric abdominal pain 1 cm sliding-type hiatal hernia with no significant erosive esophagitis Minimal gastritis involving the antrum and body of the stomach Chronic recurrent pancreatitis Elevated total bilirubin Plan Discussed with Dr. Villavicencio MRCP: No evidence of choledocholithiasis. Unchanged 1.1 cm T2 hyperintense structure at the uncinate process of the pancreas possibly representing a cyst or IPMN. EGD done We will continue to monitor patient Continue current treatment DC planning Await for biopsy result Will place pt on Protonix 40 mg p.o. daily Resume GI soft diet advance as tolerated Patient has a small pancreatic cyst or IPMN which is very small in size and stable no further workup was required just continue observation and repeat MRI in one year, Pending CA 19 -9 Plan discussed with: Patient, Other (rn) WERNER ORELLANA RESIDENT Oct 20, 2025 16:55
[2025-10-20] MEDS: POTASSIUM CHL 20 Meq TABLET PO ONE (22:28)
[2025-10-21 01:00] VITALS: BP 135/67; PULSE 71; RESP 18; TEMP 98.1; O2SAT 95
[2025-10-21 05:00] VITALS: BP 141/72; PULSE 82; RESP 18; TEMP 98.1; O2SAT 96
[2025-10-21 08:00] VITALS: RESP 16
[2025-10-21 09:00] VITALS: BP 159/84; PULSE 71; RESP 20; TEMP 97.4; O2SAT 95
[2025-10-21] MEDS ORDERED: DICY10CA PO (10:33)
[2025-10-21] MEDS ORDERED: PANT40TA2 PO (10:33)
[2025-10-21] MEDS ORDERED: TEMA15CA2 PO (10:33)
[2025-10-21] MEDS ORDERED: SUCR1TAB31 PO (10:33)
--- NOTE | 2025-10-21 10:41 | DVHDS2 ---
Discharge Summary Date of Admission Oct 16, 2025 at 15:03 Date of Discharge: Oct 21, 2025 Admitting Diagnosis Severe abdominal pain Wounds: EGD Labs/Diagnostic Data: Laboratory Results Test 10/20/25 05:30 10/19/25 17:37 10/19/25 04:49 10/18/25 23:29 Sodium Level 143 mmol/L (136-145) Potassium Level 2.9 mmol/L (3.5-5.1) Chloride Level 105 mmol/L (98-107) Carbon Dioxide Level 26 mmol/L (20-31) Anion Gap 12 (5-15) Blood Urea Nitrogen < 5 mg/dL (9-23) Creatinine 0.38 mg/dL (0.550-1.02) Glomerular Filtration Rate Calc 101 mL/min (>90) BUN/Creatinine Ratio 13.2 (10.0-20.0) Serum Glucose 90 mg/dL (74-106) Calcium Level 8.8 mg/dL (8.7-10.4) CA 19-9 Antigen <2 U/mL (0-35) POC Glucose 107 mg/dl (70-106) Prothrombin Time 11.7 sec (9.3-11.8) Prothrombin Time INR 1.12 (0.9-1.15) Activated Partial Thromboplast Time 24.7 SEC (24.5-34.5) Test 10/17/25 05:38 10/16/25 16:05 10/16/25 14:27 10/16/25 13:41 White Blood Count 5.2 10^3/uL (4.4-10.8) Red Blood Count 4.11 10^6/uL (4.0-5.20) Hemoglobin 12.9 g/dL (12.2-16.2) Hematocrit 38.4 % (36.0-46.0) Mean Corpuscular Volume 93.3 fL (80.0-100.0) Mean Corpuscular Hemoglobin 31.4 pg (28.0-32.0) Mean Corpuscular Hemoglobin Concent 33.6 g/dL (32.0-36.0) Red Cell Distribution Width 13.4 % (11.8-14.3) Platelet Count 292 10^3/uL (140-450) Mean Platelet Volume 8.6 fL (6.9-10.8) Neutrophils (%) (Auto) 62.1 % (37.0-80.0) Lymphocytes (%) (Auto) 23.7 % (10.0-50.0) Monocytes (%) (Auto) 9.7 % (0.0-12.0) Eosinophils (%) (Auto) 3.7 % (0.0-7.0) Basophils (%) (Auto) 0.8 % (0.0-2.0) Neutrophils # (Auto) 3.2 10 ^3/uL (1.6-8.6) Lymphocytes # (Auto) 1.2 10 ^3/uL (0.4-5.4) Monocytes # (Auto) 0.5 10 ^3/uL (0-1.3) Eosinophils # (Auto) 0.2 10 ^3/uL (0-0.8) Basophils # (Auto) 0 10 ^3/uL (0-0.2) Nucleated Red Blood Cells 0.1 % Total Bilirubin 1.5 mg/dL (0.2-1.0) Aspartate Amino Transferase (AST) 40 U/L (13-40) Alanine Aminotransferase (ALT) 40 U/L (7-40) Alkaline Phosphatase 67 U/L (46-116) Total Protein 5.7 g/dL (5.7-8.2) Albumin 3.6 g/dL (3.2-4.8) Troponin I High Sensitivity 15 ng/L (</=34) Urine Color Yellow (Yellow) Urine Clarity Clear (Clear) Urine pH 6.0 (5.0-9.0) Urine Specific [place] 1.017 (1.001-1.035) Urine Protein Trace (Negative) Urine Ketones 2+ (Negative) Urine Blood Negative /uL (Negative) Urine Nitrite Negative (Negative) Urine Bilirubin Negative (Negative) Urine Urobilinogen Normal mg/dL (Negative) Urine Leukocyte Esterase Negative /uL (Negative) Urine RBC 1 /hpf (0 - 4) Urine Microscopic WBC 5 /HPF (0-5) Urine Squamous Epithelial Cells Few /hpf (<5) Urine Bacteria None seen /hpf (None Seen) Urine Hyaline Casts Mod /lpf (0 - 2) Urine Mucus Few (None Seen) Urine Glucose Normal mg/dL (Normal) Magnesium Level 2.1 mg/dL (1.6-2.6) Test 10/16/25 12:42 Lactic Acid Level 1.2 mmol/L (0.4-2.0) Lipase 27 U/L (12-53) Other Laboratory Tests 10/20/25 05:30 10/17/25 05:38 Brief Hx & Hospital Course: 80 Year-old female with a history of hypotension depression pneumoniae chronic tremors atrial fibrillation came in complaining of severe epigastric abdominal pain. EGD by Dr. Shanell Villavicencio showed minimal antral gastritis biopsy result pending placed on pantoprazole and Carafate and Bentyl. Patient has a dilated CBD 10-11 mm MRCP negative for any choledocholithiasis MRCP showed 1.1 cm cyst in the tail of the pancreas patient was advised about the finding Dr. Shanell Villavicencio recommended repeat MRCP in one year patient feels much better and being discharged home prescription transmitted to the pharmacy. She will follow up with the Dr. Shanell Villavicencio in 10 days for the biopsy result Consults/Reason for consult GI Dr. Shanell Villavicencio Operations or Procedures EGD CT abdomen pelvis without contrast MRCP Condition at Discharge: Fair Final Diagnosis/Problems List Acute severe epigastric pain Nausea vomiting: GI consult for Dr. Shanell Villavicencio appreciated, pantoprazole, Carafate Minimal antral gastritis by EGD by Dr. Shanell Villavicencio on 10-19-25 biopsy result pending Severe hypokalemia potassium 3.3 replace potassium Elevated liver function tests Hyperbilirubinemia bilirubin 2.2 Lipase normal Atrial fibrillation Dilated CBD 10-11 mm, MRCP negative for any choledocholithiasis 1.1 cm cyst in the tail of the pancreas by MRCP, GI Dr. Shanell Villavicencio advised repeat MRCP in one year History of cholecystectomy Hypertension Depression History of pneumonia Chronic tremors Discharge Disposition: Home Discharge Instruct/Medications Diet: Regular Activity: Light activity Follow Up/Referral: Continue all home medications Use new medications as prescribed Follow up with your primary Dr Follow up with the GI Dr. Shanell Villavicencio in 10 days for the biopsy result Medications: Pantoprazole Carafate Bentyl Restoril Transmitted to [facility]'s Scheduled Citalopram Hydrobromide (Citalopram Hydrobromide), 1 TAB PO DAILY, (Reported) Dicyclomine Hcl (Bentyl Capsule), 1 CAP PO TID Hydrochlorothiazide (Hydrochlorothiazide), 25 MG PO DAILY, (Reported) Levothyroxine Sodium (Levothyroxine Sodium), 100 MCG PO QAM, (Reported) Losartan Potassium (Losartan Potassium), 50 MG PO DAILY, (Reported) Multiple Vitamin (Multivitamins), 1 TAB PO DAILY, (Reported) [place]-3 Fatty Acids (Fish Oil), 1,000 MG PO DAILY, (Reported) Pantoprazole Sodium Sesquihydr (Protonix), 40 MG PO BID Simvastatin (Simvastatin), 20 MG PO DAILY, (Reported) Sucralfate (Carafate), 1 GM PO QID Scheduled PRN Temazepam (Restoril), 1 CAP PO QPM PRN Miscellaneous Medications Albuterol Sulfate (Proair Digihaler), 108 MCG IN, (Reported) 39 (Time taken for discharge summary 39 minutes) Discharge Statement: "Patient was advised to return to the ER or call 911 if any headaches, dizziness, shortness of breath, chest pain, abdominal pain, bleeding, fevers, or worsening of medical condition. Patient was counseled about treatment plan, medications, possible side effects, patientverbalized understanding. All questions were answered to the best of my ability. This discharge took greater then 30 minutes in planning, reviewing documentation, counseling the patient, and discussing with other team members." ASSESSMENT ASSESSMENT Assessment Acute severe epigastric pain Nausea vomiting: GI consult for Dr. Shanell Villavicencio appreciated, pantoprazole, Carafate Minimal antral gastritis by EGD by Dr. Shanell Villavicencio on 10-19-25 biopsy result pending Severe hypokalemia potassium 3.3 replace potassium Elevated liver function tests Hyperbilirubinemia bilirubin 2.2 Lipase normal Atrial fibrillation Dilated CBD 10-11 mm, MRCP negative for any choledocholithiasis 1.1 cm cyst in the tail of the pancreas by MRCP, GI Dr. Shanell Villavicencio advised repeat MRCP in one year History of cholecystectomy Hypertension Depression History of pneumonia Chronic tremors Date of Service: Oct 21, 2025 Billing Provider: ZELDA CRUZ MD Common Visit Codes: 66582-PXO/OBS DISCH DAY >30min ZELDA CRUZ MD Oct 21, 2025 10:41
--- NOTE | 2025-10-21 10:54 | DVHPN2 ---
Progress Note Date Seen: Oct 21, 2025 Resident Creating Document: WERNER ORELLANA RESIDENT Has the PT tested + for MRSA If YES, has PT been informed?: No Medical Necessity Reason Pt with a Central, PICC or Fol: No Subjective Review of Systems No acute GI complaints Tolerating diet Objective vital signs Vital Sign Date Time Temp Pulse Resp B/P (MAP) Pulse Ox O2 Delivery O2 Flow Rate FiO2 10/21/25 09:10 166/91 10/21/25 09:00 97.4 71 20 95 97.4 10/21/25 08:00 Room Air* 0 21 Total Intake and Output 10/20/25 10/20/25 10/21/25 15:00 23:00 07:00 Intake Total 500 ml 400 ml Balance 500 ml 400 ml medications Current Medications Medications Dose Ordered Sig/Low Route Start Time Stop Time Status Last Admin Dose Admin Levothyroxine Sodium 100 mcg QAM PO 10/17/25 07:00 10/21/25 06:14 100 MCG Losartan Potassium 50 mg DAILY PO 10/17/25 10:00 10/21/25 09:10 50 MG Multivitamins 1 tab DAILY PO 10/17/25 10:00 10/21/25 09:11 1 TAB Citalopram Hydrobromide 20 mg DAILY PO 10/17/25 10:00 10/21/25 09:10 20 MG Patient Own Medication 1,000 mg DAILY PO 10/17/25 10:00 Ondansetron HCl 4 mg Q4HP PRN IV 10/16/25 15:15 10/21/25 06:21 4 MG Docusate Sodium 100 mg BIDPRN PRN PO 10/16/25 15:15 Morphine Sulfate 2 mg Q4HPRN PRN IV 10/16/25 15:15 Hold Nitroglycerin 0.4 mg Q5MINP PRN SL 10/16/25 15:15 Pantoprazole Sodium 40 mg DAILY IV 10/17/25 10:00 10/21/25 09:10 40 MG Sucralfate 1 gm TID@0600,1130,2200 PO 10/16/25 22:00 10/21/25 06:14 1 GM Dicyclomine HCl 20 mg QID PO 10/16/25 18:00 10/21/25 06:14 20 MG Melatonin 5 mg HS PO 10/18/25 22:00 10/20/25 21:37 5 MG Lactated Ringer's 1,000 ml @ 125 mls/hr Q8H IV 10/19/25 11:30 10/21/25 06:19 125 MLS/HR Examination General alert and oriented no apparent distress Lungs clear to auscultation Cardio regular rate and rhythm Abdomen soft positive bowel sounds laboratory and microbiology Laboratory Tests 10/20/25 05:30 10/17/25 05:38 Test 10/20/25 05:30 Range/Units Serum Glucose 90 74-106 mg/dL Problem List/Assessment/Plan Problem List/Assessment/Plan Epigastric abdominal pain 1 cm sliding-type hiatal hernia with no significant erosive esophagitis Minimal gastritis involving the antrum and body of the stomach Chronic recurrent pancreatitis Elevated total bilirubin Plan Discussed with Dr. Villavicencio MRCP: No evidence of choledocholithiasis. Unchanged 1.1 cm T2 hyperintense structure at the uncinate process of the pancreas possibly representing a cyst or IPMN. EGD done We will continue to monitor patient Continue current treatment DC planning Await for biopsy result Will place pt on Protonix 40 mg p.o. daily Resume GI soft diet advance as tolerated Patient has a small pancreatic cyst or IPMN which is very small in size and stable no further workup was required just continue observation and repeat MRI in one year, CA 19 -9 neg Plan discussed with: Patient, Other (rn) WERNER ORELLANA RESIDENT Oct 21, 2025 10:54
== END 2025-10-21 11:45 | disposition home or self-care (01) | DRG 392 ==
LOC: ER 11:58 → EDBD 11:58 → OVERFLOW 15:03 → WEST WING 16:10
PROVIDERS: ADMIT Family Medicine; ATTEND Family Medicine
PROC: 0DB68ZX Excision of Stomach, Via Natural or Artificial Opening Endoscopic, Diagnostic (ICD-10-PCS; 2025-10-19)
PROC: 0DB98ZX Excision of Duodenum, Via Natural or Artificial Opening Endoscopic, Diagnostic (ICD-10-PCS; principal; 2025-10-19 16:15)
DX: K29.70 Gastritis, unspecified, without bleeding (principal); K83.8 Other specified diseases of biliary tract; F32.A Depression, unspecified; I10 Essential (primary) hypertension; K86.1 Other chronic pancreatitis; E80.6 Other disorders of bilirubin metabolism; E87.6 Hypokalemia; F41.9 Anxiety disorder, unspecified; R74.01 Elevation of levels of liver transaminase levels; I48.91 Unspecified atrial fibrillation; K44.9 Diaphragmatic hernia without obstruction or gangrene; Z88.5 Allergy status to narcotic agent; Z91.048 Other nonmedicinal substance allergy status; Z82.0 Family history of epilepsy and other diseases of the nervous system; Z82.49 Family history of ischemic heart disease and other diseases of the circulatory system; Z87.01 Personal history of pneumonia (recurrent); Z79.899 Other long term (current) drug therapy; Z79.82 Long term (current) use of aspirin; Z90.49 Acquired absence of other specified parts of digestive tract
CPT/HCPCS: 36415; 43239; 71045; 74181; 76705; 80048; 80053; 81001; 82962; 83605; 83690; 83735; 84484; 85025; 85610; 85730; 86301; 86850; 86900; 86901; 93005; G0378; J2250; J2405; J2470

== ENCOUNTER 2025-10-22 10:03 | Inpatient (IN) | payer MEDICARE ==
[~2025-10-22] VITALS: Ht 165.1 cm; Wt 57.4 kg
[~2025-10-22 10:03] MED LIST changes: +DICY10CA PO; +PANT40TA2 PO; +SUCR1TAB31 PO; +TEMA15CA2 PO
[2025-10-22 11:28] LABS: Hematocrit 47.0 % (36.0-46.0); Hemoglobin 15.8 g/dL (12.2-16.2); Mean Corpuscular Hemoglobin 31.6 pg (28.0-32.0); Mean Corpuscular Volume 93.7 fL (80.0-100.0); Nucleated Red Blood Cells % 0.1 %
--- NOTE | 2025-10-22 11:36 | ED.PDOC ---
History of Present Illness HPI Comments 80 y/o F is BIBA from private residence for c/c of nonradiating,epigastric abdominal pain, with associated multiple episodes of nausea and vomiting and excessive burping. Patient endorses on onset of pain, last night after returning home after [facility] admission for pancreatitis, eating dinner, and laying down. She describes pain as pressure-like in quality. Denies any bloody or bilious vomitus, diarrhea, constipation, urinary problems, or further acute symptoms. Significant history for Atrial fibrillation, hypertension, hyperlipidemia, hyperthyroidism, dementia, bowel ischemia, chronic pancreatitis, cholecystectomy, hysterectomy, thyroidectomy, and chronic tremors. Chief Complaint: Nausea/Vomiting Time Seen by MD: 11:00 Primary Care Provider: CHRISTINE Reviewed Notes: Nurses Notes, Public Works Director Notes, Medications, Allergies Allergies: Coded Allergies: Codeine (Verified Allergy, Unknown, 05/03/25) Uncoded Allergies: PAPER TAPE (Allergy, Unknown, 09/21/21) Home Meds Active Scripts Dicyclomine Hcl (BENTYL CAPSULE) 10 Mg Cp, 1 CAP PO TID, #30 CAP 3 Refills Prov:ZELDA CRUZ MD 10/21/25 Sucralfate (CARAFATE) 1 Gm Tab, 1 GM PO QID, #120 TAB Prov:ZELDA CRUZ MD 10/21/25 Pantoprazole Sodium Sesquihydr (Protonix) 40 Mg Tab, 40 MG PO BID, #60 TAB Prov:ZELDA CRUZ MD 10/21/25 Temazepam (Restoril) 15 Mg Cp, 1 CAP PO QPM PRN, #10 CAP 1 Refill Prov:ZELDA CRUZ MD 10/21/25 Reported Medications Citalopram Hydrobromide (Citalopram Hydrobromide) 40 Mg Tab, 1 TAB PO DAILY 05/03/25 [place]-3 Fatty Acids (Fish Oil) 1,000 Mg Cap, 1000 MG PO DAILY, CAP 09/22/21 Multiple Vitamin (Multivitamins) Tab, 1 TAB PO DAILY, #90 TAB 3 Refills 09/22/21 Albuterol Sulfate (Proair Digihaler) 108 Mcg/Act Aer, 108 MCG IN, AER 09/22/21 Hydrochlorothiazide (Hydrochlorothiazide) 25 Mg Tab, 25 MG PO DAILY for 30 Days, MG 11/19/21 Losartan Potassium (Losartan Potassium) 50 Mg Tab, 50 MG PO DAILY for 30 Days, MG 09/22/21 Levothyroxine Sodium (Levothyroxine Sodium) 100 Mcg Tab, 100 MCG PO QAM for 30 Days, MCG 09/22/21 Simvastatin (Simvastatin) 20 Mg Tab, 20 MG PO DAILY for 30 Days 09/22/21 Information Source: Patient, Emergency Med Personnel, [facility] Medical Record, Past Medical Record Mode of Arrival: EMS Severity: Moderate Timing: Hours Duration: Since onset Prehospital treatment: 12 Lead EKG, Tube Cleaning Operator Past Medical History PAST MEDICAL HISTORY: AFIB, CVA, Depression, High Lipids, HTN, Thyroid, TIA Past Medical History (Other): Pancreatitis Hyperbilirubinemia PNA chronic tremors bowel ischemia Surgical History: Cholecystectomy, Hysterectomy, Thyroidectomy ASSISTANT CUSTOMER SERVICE MANAGER History: No Pertinent ASSISTANT CUSTOMER SERVICE MANAGER History Family History Family History: Reviewed,noncontributory to illness Social History Smoker: Non-Smoker Alcohol: Denies ETOH Use Drugs: Denies Drug Use Lives In: Home All Other Systems: Reviewed and Negative (Comprehensive systems review obtained and negative except for what is stated in the HPI.) Physical Exam General Appearance: No Apparent Distress, Normal, Other (chronically ill- appearing ) HEENT: Normal ENT Inspection, Pharynx Normal, TMs Normal Neck: Full Range of Motion, Non-Tender, Normal, Normal Inspection Respiratory: Chest Non-Tender, Lungs Clear, No Accessory Muscle Use, No Respiratory Distress, Normal Breath Sounds Cardiovascular: No Edema, No JVD, No Murmur, No Gallop, Normal Peripheral Pulses, Regular Rate/Rhythm Breast Exam: Deferred Gastrointestinal: Diffuse (tenderness ), No Organomegaly, No Pulsatile Mass, Normal Bowel Sounds, Soft, Tenderness (diffuse) Genitalia: Deferred Pelvic: Deferred Rectal: Deferred Extremities: No calf tenderness, Normal capillary refill, Normal inspection, Normal range of motion, Non-tender, No pedal edema Musculoskeletal : Apperance: Normal Neurologic: Alert, promotion producer II-XII nml as Tested, No Motor Deficits, Normal Affect, Normal Mood, No Sensory Deficits Cerebellar Function: Normal Reflexes: Normal Skin: Dry, Normal Color, Warm Lymphatic: No Adenopathy Was a procedure done? Was a procedure done?: No EKG EKG : Pulse Rate (adult): 82 [place]: Normal Cardiac Rhythm: NSR Block: None Hypertrophy: None ST: Normal Differential Dx Considerations may include: Pancreatitis, gastritis, gastroenteritis, GERD, PUD, cholelithiasis, among others X-Ray, Labs, Meds, VS Vital Signs Date Time Temp Pulse Resp B/P (MAP) Pulse Ox O2 Delivery O2 Flow Rate FiO2 10/22/25 11:58 98.0 89 18 137/75 (95) 95 98.0 10/22/25 11:35 82 10/22/25 10:09 98.0 85 18 150/77 97 98.0 10/22/25 10:07 82 Lab Test 10/22/25 12:19 10/22/25 12:10 10/22/25 11:16 Range/Units Urine Color Dark yellow Yellow Urine Clarity Turbid H Clear Urine pH 6.0 5.0-9.0 Urine Specific [place] 1.013 1.001-1.035 Urine Protein Trace H Negative Urine Ketones 1+ H Negative Urine Blood Trace H Negative /uL Urine Nitrite Negative Negative Urine Bilirubin Negative Negative Urine Urobilinogen Normal Negative mg/dL Urine Leukocyte Esterase 3+ Negative /uL Urine RBC 7 0 - 4 /hpf Urine Microscopic WBC 112 H 0-5 /HPF Urine Squamous Epithelial Cells Few <5 /hpf Urine Bacteria Mod H None Seen /hpf Urine Mucus Few None Seen Urine Glucose Normal Normal mg/dL Troponin I High Sensitivity 12 13 </=34 ng/L White Blood Count 5.7 4.4-10.8 10^3/uL Red Blood Count 5.01 4.0-5.20 10^6/uL Hemoglobin 15.8 # 12.2-16.2 g/dL Hematocrit 47.0 #H 36.0-46.0 % Mean Corpuscular Volume 93.7 80.0-100.0 fL Mean Corpuscular Hemoglobin 31.6 28.0-32.0 pg Mean Corpuscular Hemoglobin Concent 33.7 32.0-36.0 g/dL Red Cell Distribution Width 13.5 11.8-14.3 % Platelet Count 369 140-450 10^3/uL Mean Platelet Volume 7.9 6.9-10.8 fL Neutrophils (%) (Auto) 73.9 37.0-80.0 % Lymphocytes (%) (Auto) 17.1 10.0-50.0 % Monocytes (%) (Auto) 6.5 0.0-12.0 % Eosinophils (%) (Auto) 1.8 0.0-7.0 % Basophils (%) (Auto) 0.7 0.0-2.0 % Neutrophils # (Auto) 4.2 1.6-8.6 10 ^3/uL Lymphocytes # (Auto) 1.0 0.4-5.4 10 ^3/uL Monocytes # (Auto) 0.4 0-1.3 10 ^3/uL Eosinophils # (Auto) 0.1 0-0.8 10 ^3/uL Basophils # (Auto) 0 0-0.2 10 ^3/uL Nucleated Red Blood Cells 0.1 % Sodium Level 141 136-145 mmol/L Potassium Level 3.1 L 3.5-5.1 mmol/L Chloride Level 102 98-107 mmol/L Carbon Dioxide Level 27 20-31 mmol/L Anion Gap 12 5-15 Blood Urea Nitrogen 6 L 9-23 mg/dL Creatinine 0.43 L 0.550-1.02 mg/dL Glomerular Filtration Rate Calc 98 >90 mL/min BUN/Creatinine Ratio 14.0 10.0-20.0 Serum Glucose 119 H 74-106 mg/dL Calcium Level 9.8 8.7-10.4 mg/dL Total Bilirubin 1.2 H 0.2-1.0 mg/dL Aspartate Amino Transferase (AST) 26 13-40 U/L Alanine Aminotransferase (ALT) 28 7-40 U/L Alkaline Phosphatase 87 46-116 U/L Total Protein 7.1 5.7-8.2 g/dL Albumin 4.5 3.2-4.8 g/dL Lipase 34 12-53 U/L Time of 1ST Reevaluation: 11:30 Reevaluation 1ST: Unchanged Patient Education/Counseling: Diagnosis, Treatment Family Education/Counseling: No Family Present Additional Information Previous history reviewed: October 11, 2025 and October 16, 2025 encounters for chronic pancreatitis and acute intractable abdominal pain, respectively The following tests were ordered, and results were reviewed by me: Tropinin, UA, lipase, CMP, CBC, EKGa Additional Information was gathered from interviewing the following independent historians: N/A I reviewed and agreed with the following test results read by other providers: CXR I discussed treatment and results with medical personnel and: patient SEPSIS Sepsis Screen Date sepsis recognized/suspect: Oct 22, 2025 Time Sepsis recognized/suspect: 1009 Recent Procedure: No On Antibiotic Therapy: No Respiratory Rate >20: No Heart Rate >90: No Temp<36 C (96.8 F) or >38.3 C: No SBP <90 or MAP <65 mmHG: No New Acute Mental Status Change: No Is the patient on CPAP, BIPAP,: No Physician Orders Electrocardigram (10/22/25 10:18) Chest Portable (10/22/25 11:06) Troponin-I Hs (10/22/25 14:06) Lactated Ringer's (10/22/25 13:00) Vancomycin Once Stat (10/22/25 13:00) Lactic Acid W/ Reflex Order (10/22/25 14:00) Lactic Acid W/ Reflex Order (10/22/25 16:00) Cefepime 2 Gm Once Stat (10/22/25 13:00) Notify Md If Map <65 Or Bp<90 (10/22/25 12:47) If Map<65 Start Vasopressor (10/22/25 12:47) Sepsis Reassesment After Fluid (10/22/25 13:47) Vital Signs Date Time Temp Pulse Resp B/P (MAP) Pulse Ox O2 Delivery O2 Flow Rate FiO2 10/22/25 11:58 98.0 89 18 137/75 (95) 95 98.0 10/22/25 11:35 82 10/22/25 10:09 98.0 85 18 150/77 97 98.0 10/22/25 10:07 82 Laboratory Tests Test 10/22/25 11:16 White Blood Count 5.7 10^3/uL (4.4-10.8) Departure 1 Departure Time of Disposition: 12:50 (Patient with intractable abdominal pain concerning for urinary tract infection.We will empirically cover patient with antibiotics and fluids. Admit patient for further workup and expert consultation) Impression: Primary Impression: Complicated UTI (urinary tract infection) Additional Impression: Intractable abdominal pain Disposition: ADMITTED INPATIENT Admit to: Med Surg Condition: Guarded Critical Care Note Critical Care Time?: No Stability Stability form required: No Heart Score Heart Score: Heart Score Response (Comments) Value History N/A 0 EKG N/A 0 Age N/A 0 Risk Factors N/A 0 Troponin N/A 0 Total 0 I personally scribed for COLETTE COTTRELL MD ([email or web address]) on 10/22/25 at 11:35. Electronically submitted by Andres Coleman ([email or web address]). I personally scribed for COLETTE COTTRELL MD ([email or web address]) on 10/22/25 at 11:37. Electronically submitted by Andres Coleman ([email or web address]). COLETTE COTTRELL MD Oct 22, 2025 11:35
[2025-10-22 11:45] LABS: Alanine Aminotransferase 28 U/L (7-40); Alkaline Phosphatase 87 U/L (46-116); Anion Gap 12 (5-15); BUN/Creatinine Ratio 14.0 (10.0-20.0); Calcium 9.8 mg/dL (8.7-10.4); Carbon Dioxide 27 mmol/L (20-31); Chloride 102 mmol/L (98-107); Lipase 34 U/L (12-53); Sodium 141 mmol/L (136-145); Total Protein 7.1 g/dL (5.7-8.2)
--- NOTE | 2025-10-22 11:45 | DVH ---
EXAM: XY CHEST PORTABLE HISTORY: epigastric pain TECHNIQUE: 1 view of the chest COMPARISON: XY CHEST PORTABLE on DOS: 10/16/25 FINDINGS/IMPRESSION: LUNGS: No pleural effusion, consolidation, or pneumothorax. MEDIASTINUM: Unremarkable. BONES: No acute osseous abnormality. OTHER: None.
[2025-10-22 11:46] LABS: Albumin 4.5 g/dL (3.2-4.8); Bilirubin, Total 1.2 mg/dL (0.2-1.0); Blood Urea Nitrogen 6 mg/dL (9-23); Glucose 119 mg/dL (74-106); Potassium 3.1 mmol/L (3.5-5.1)
[2025-10-22 12:30] LABS: Urine Protein, UAD TRACE (Negative)
[2025-10-22] MEDS ORDERED: CEFEPIME 1GM/50ML 50 ML IV ONE (13:00)
[2025-10-22] MEDS: LACTATED RINGER'S 1,700 ML IV ONE (13:48)
[2025-10-22] MEDS: CEFEPIME 1GM/50ML 50 ML IV ONE (14:09)
--- NOTE | 2025-10-22 14:54 | DVHHPRES ---
History of Present Illness Resident Creating Document: ISSAC CARLOS RESIDENT History of Present Illness Barbara Macias, An 80-year-old female with significant history of atrial fibrillation, hypertension, hyperlipidemia, hyperthyroidism, dementia, bowel ischemia, chronic pancreatitis, cholecystectomy, hysterectomy, thyroidectomy, and chronic tremors. was brought in by ambulance from home with nonradiating epigastric pain described as pressure-like, accompanied by multiple episodes of nausea, vomiting, and excessive burping, which began last night after eating dinner and lying down following recent discharge for pancreatitis; she denies bloody or bilious emesis, diarrhea, constipation, urinary symptoms, or other acute complaints. PMHx: Essential hypertension, chronic constipation, diabetes mellitus type 2, diabetic neuropathy, COPD, osteoarthritis, chronic low back pain, dyslipidemia, post herpetic neuralgia, and hypothyroidism. Pancreatitis, Hyperbilirubinemia, PNA, chronic tremors, bowel ischemia. PSHx: Cholecystectomy, Hysterectomy, Thyroidectomy. Family history: Noncontributory to the admission. Social history: She is a nonsmoker, denies alcohol and illicit drug use, and lives at home. Review of Systems Constitutional: Yes: Weakness, Malaise; No: Fever, Chills, Sweats, Other Eyes: No: Pain, Vision change, Conjunctivae inflammation, Eyelid inflammation, Other, Redness ENT: No: Ear pain, Ear discharge, Nose pain, Nose discharge, Nose congestion, Mouth pain, Mouth swelling, Throat pain, Throat swelling, Other Respiratory: No: Cough, Dry, Shortness of breath, SOB with excertion, Wheezing, Hemoptysis, Pleuritic Pain, Sputum, Wheezing, Other Cardiovascular: No: Chest Pain, Palpitations, Orthopnea, Paroxysmal Noc. Dyspnea, Edema, Lt Headedness, Other Gastrointestinal: Abdominal Pain; No: Nausea, Vomiting, Diarrhea, Constipation, Melena, Hematochezia, Other Genitourinary: Dysuria, Frequency, Incontinence; No Hematuria, No Retention, No Other Musculoskeletal: No: other, neck pain, shoulder pain, arm pain, back pain, hand pain, leg pain, foot pain Skin: No: Rash, Lesions, Jaundice, Bruising, Other Neurological: No: Weakness, Numbness, Incoordination, Change in speech, Confusion, Seizures, Other Allergies: Coded Allergies: Codeine (Verified Allergy, Unknown, 05/03/25) Uncoded Allergies: PAPER TAPE (Allergy, Unknown, 09/21/21) Medications Current Medications Medications Dose Ordered Sig/Lwo Route Start Time Stop Time Status Last Admin Dose Admin Acetaminophen/ Hydrocodone Bitart 1 tab Q4HP PRN PO 10/22/25 15:00 UNV Ondansetron HCl 4 mg Q4HP PRN IV 10/22/25 15:00 UNV Docusate Sodium 100 mg BIDPRN PRN PO 10/22/25 15:00 UNV Acetaminophen 650 mg Q6HP PRN PO 10/22/25 15:00 UNV Morphine Sulfate 2 mg Q4HPRN PRN IV 10/22/25 15:00 UNV Nitroglycerin 0.4 mg Q5MINP PRN SL 10/22/25 15:00 UNV Morphine Sulfate 2 mg Q30M PRN IV 10/22/25 15:00 UNV Exam Vital Signs Vital Signs Date Time Temp Pulse Resp B/P (MAP) Pulse Ox O2 Delivery O2 Flow Rate FiO2 10/22/25 14:51 85 17 159/93 (115) 97 10/22/25 11:58 98.0 98.0 General Appearance: Alert, Oriented X3, Cooperative, mild distress HEENT: Atraumatic, PERRLA, EOMI, Other (dry mucosa ) Respiratory: Clear to auscultation, Normal air movement, Other (in RA ) Cardiovascular: Regular rate, Normal S1, Normal S2, No murmurs Abdominal: Normal bowel sounds, Soft, No tenderness, No hepatospenomegaly Extremities: No clubbing, No cyanosis, No edema, Normal pulses, No tenderness/swelling Skin: No rashes, No breakdown, No significant lesion Neuro: Normal speech, Strength at 5/5 X4 ext, Normal tone, Sensation intact, Cranial nerves 3-12 NL, Other Psych/Mental Status: Mental status NL, Mood NL Labs/Xrays Labs Test 10/22/25 13:35 10/22/25 12:19 10/22/25 11:16 Range/Units Lactic Acid Level 1.2 0.4-2.0 mmol/L Troponin I High Sensitivity 12 </=34 ng/L Urine Color Dark yellow Yellow Urine Clarity Turbid H Clear Urine pH 6.0 5.0-9.0 Urine Specific [place] 1.013 1.001-1.035 Urine Protein Trace H Negative Urine Ketones 1+ H Negative Urine Blood Trace H Negative /uL Urine Nitrite Negative Negative Urine Bilirubin Negative Negative Urine Urobilinogen Normal Negative mg/dL Urine Leukocyte Esterase 3+ Negative /uL Urine RBC 7 0 - 4 /hpf Urine Microscopic WBC 112 H 0-5 /HPF Urine Squamous Epithelial Cells Few <5 /hpf Urine Bacteria Mod H None Seen /hpf Urine Mucus Few None Seen Urine Glucose Normal Normal mg/dL White Blood Count 5.7 4.4-10.8 10^3/uL Red Blood Count 5.01 4.0-5.20 10^6/uL Hemoglobin 15.8 # 12.2-16.2 g/dL Hematocrit 47.0 #H 36.0-46.0 % Mean Corpuscular Volume 93.7 80.0-100.0 fL Mean Corpuscular Hemoglobin 31.6 28.0-32.0 pg Mean Corpuscular Hemoglobin Concent 33.7 32.0-36.0 g/dL Red Cell Distribution Width 13.5 11.8-14.3 % Platelet Count 369 140-450 10^3/uL Mean Platelet Volume 7.9 6.9-10.8 fL Neutrophils (%) (Auto) 73.9 37.0-80.0 % Lymphocytes (%) (Auto) 17.1 10.0-50.0 % Monocytes (%) (Auto) 6.5 0.0-12.0 % Eosinophils (%) (Auto) 1.8 0.0-7.0 % Basophils (%) (Auto) 0.7 0.0-2.0 % Neutrophils # (Auto) 4.2 1.6-8.6 10 ^3/uL Lymphocytes # (Auto) 1.0 0.4-5.4 10 ^3/uL Monocytes # (Auto) 0.4 0-1.3 10 ^3/uL Eosinophils # (Auto) 0.1 0-0.8 10 ^3/uL Basophils # (Auto) 0 0-0.2 10 ^3/uL Nucleated Red Blood Cells 0.1 % Sodium Level 141 136-145 mmol/L Potassium Level 3.1 L 3.5-5.1 mmol/L Chloride Level 102 98-107 mmol/L Carbon Dioxide Level 27 20-31 mmol/L Anion Gap 12 5-15 Blood Urea Nitrogen 6 L 9-23 mg/dL Creatinine 0.43 L 0.550-1.02 mg/dL Glomerular Filtration Rate Calc 98 >90 mL/min BUN/Creatinine Ratio 14.0 10.0-20.0 Serum Glucose 119 H 74-106 mg/dL Calcium Level 9.8 8.7-10.4 mg/dL Total Bilirubin 1.2 H 0.2-1.0 mg/dL Aspartate Amino Transferase (AST) 26 13-40 U/L Alanine Aminotransferase (ALT) 28 7-40 U/L Alkaline Phosphatase 87 46-116 U/L Total Protein 7.1 5.7-8.2 g/dL Albumin 4.5 3.2-4.8 g/dL Lipase 34 12-53 U/L SEPSIS Sepsis Screen Date sepsis recognized/suspect: Oct 22, 2025 Time Sepsis recognized/suspect: 1009 Recent Procedure: No On Antibiotic Therapy: No Respiratory Rate >20: No Heart Rate >90: No Temp<36 C (96.8 F) or >38.3 C: No SBP <90 or MAP <65 mmHG: No New Acute Mental Status Change: No Is the patient on CPAP, BIPAP,: No Physician Orders Electrocardigram (10/22/25 10:18) Chest Portable (10/22/25 11:06) Vancomycin 1gm/250ml Kit (10/22/25 14:00) Notify Md If Map <65 Or Bp<90 (10/22/25 12:47) If Map<65 Start Vasopressor (10/22/25 12:47) Sepsis Reassesment After Fluid (10/22/25 13:47) Blood Culture (10/22/25 13:24) Admit (10/22/25 14:49) Allergies (10/22/25 14:49) Code Status (10/22/25 14:49) Hydrocodone-Acet 5/325mg Tab (Mitchell 5/32 (10/22/25 15:00) Ondansetron Hcl (Zofran) (10/22/25 15:00) Docusate Sodium Capsule (Colace Capsule) (10/22/25 15:00) Complete Blood Count (10/23/25 04:00) Comprehensive Metabolic Panel (10/23/25 04:00) Npo (Nothing By Mouth) Diet (10/22/25 Dinner) Condition: Serious (10/22/25 14:49) Acetaminophen Tablet (Tylenol Tablet) (10/22/25 15:00) Morphine Sulfate Injection (10/22/25 15:00) Sequential Compression Device (10/22/25 ) Nitroglycerin Sublingual (Ntrostat Subli (10/22/25 15:00) Morphine Sulfate Injection (10/22/25 15:00) Oxygen By Nasal Cannula (10/22/25 14:49) Stat Ekg For Chest Pain (10/22/25 14:49) Notify Md Of Changes From Base (10/22/25 14:49) Library Customer Service Clerk For 24 Hours (10/22/25 14:49) Emergency Dysrhythmia Protocol (10/22/25 14:49) Rhythm Strips Once Every Shift (10/22/25 14:49) Urine Bacterial Culture (10/22/25 14:51) Potassium Chloride (Potassium Chloride). (10/22/25 15:00) Abdomen Without Contrast (10/22/25 14:53) Vital Signs Date Time Temp Pulse Resp B/P (MAP) Pulse Ox O2 Delivery O2 Flow Rate FiO2 10/22/25 14:51 85 17 159/93 (115) 97 10/22/25 11:58 98.0 89 18 137/75 (95) 95 98.0 10/22/25 11:35 82 10/22/25 10:09 98.0 85 18 150/77 97 98.0 10/22/25 10:07 82 Laboratory Tests Test 10/22/25 11:16 10/22/25 13:35 White Blood Count 5.7 10^3/uL (4.4-10.8) Lactic Acid Level 1.2 mmol/L (0.4-2.0) Medications Medications Dose Ordered Sig/Low Route Start Time Stop Time Status Last Admin Dose Admin Cefepime HCl 50 ml @ 50 mls/hr ONCE ONCE IV 10/22/25 13:00 10/22/25 13:59 DC 10/22/25 14:09 50 MLS/HR Lactated Ringer's 1,700 ml @ 1,000 mls/hr ONCE ONCE IV 10/22/25 13:00 10/22/25 14:41 DC 10/22/25 13:48 1,000 MLS/HR Assessment/Plan Assessment/Plan #Mild hypokalemia: 3.1, replenished, carotid artery electrolytes, hydration to continue. replenished started is 4. #Acute complicated UTI: Noted in urinalysis, no previous cultures present, urine culture, CT reveals acute cystitis Mild stranding surrounding the bladder. Correlate for cystitis. Lactate negative, no SIRS criteria met. #likely ureteral stricture: CT also reveals Mild right hydronephrosis. No obstructing calculus identified. Recommend urology consultation to exclude UPJ stricture and other etiologies. #Non-obstructing left renal calculus 3 mm : Conservative management with fluids . #small pericardial effusion: CXR unremarkable, check for viral disease, patient in breathing in the room air, aspiration precautions to continue. Check BNP, check TTE. #Surgical history of Cholecystectomy, Hysterectomy, Thyroidectomy #Essential hypertension: target blood pressure 130/80 or below. Start home medications when tolerated. Given active infection liberal blood pressure control. #Chronic constipation: Lactulose, Colace to continue, high-fiber diet with high hydration.Prior history of Pancreatitis, Hyperbilirubinemia, PNA, chronic tremors, bowel ischemia colon: Check lipase, lactic acid to rule out any recurrence. Small frequent diet to continue. #H/o Diabetes mellitus type 2: history on oral medications previously : At this point no need of SSI, patient is not currently diabetic Target blood glucose 140-180, Last HbA1c 5.6. #diabetic neuropathy: Gabapentin to continue physical therapy before discharge to make sure patient in 80s safe for home discharge. #Known COPD asthma: As needed nebs continue PRN basis. #osteoarthritis : As needed Tylenol #Chronic low back pain: continue home medications and multimodal pain managemeli #dyslipidemia: Statin to continue #post herpetic neuralgia, previously: Capsaicin #hypothyroidism: continue home levothyroxine 100 mcg daily. #Gilbert syndrome, likely: Possible chronically elevated bilirubin could be clinically insignificant. #GERD/PUD: iv ppi with sucralfate #insomnia: Restoril as needed. PUD prophylaxis: protonix 40mg IV daily. DVT prophylaxis: SCD/brisk movement. Barriers to discharge: Medical diagnosis and management in progress. Patient lives with family. Given high-risk of deconditioning, PT prior to discharge given acute disease With multiple comorbidities. PCP: Dr. Angeles. Specialist Relevant To Admission: Urology, consulted as hydronephrosis with high risk for pyelonephritis. Case discussed with Dr. Kang. Code Status: Full Code. Discussion for goals of care and care plan needed total 37 minutes bedside. Plan discussed with: Patient My Orders Orders - ISSAC CARLOS Procedure Category Date Status Time Admit ADMIT 10/22/25 Transmitted 14:49 Allergies [facility] 10/22/25 In Process 14:49 Code Status CODE 10/22/25 Transmitted 14:49 Hydrocodone-Acet PHA 10/22/25 Logged 5/325mg Tab (Mitchell 15:00 Ondansetron Hcl PHA 10/22/25 Logged (Zofran) 15:00 Docusate Sodium [facility] 10/22/25 Logged Capsule (Colace 15:00 Complete Blood Count LAB 10/23/25 Verified 04:00 Comprehensive LAB 10/23/25 Verified Metabolic Panel 04:00 Npo (Nothing By DIET 10/22/25 Transmitted Mouth) Diet Dinner Condition: Serious [facility] 10/22/25 In Process 14:49 Acetaminophen Tablet PHA 10/22/25 Logged (Tylenol Tablet) 15:00 Morphine Sulfate [facility] 10/22/25 Logged Injection 15:00 Sequential [facility] 10/22/25 In Process Compression Device Nitroglycerin [facility] 10/22/25 Logged Sublingual (Ntrostat 15:00 Morphine Sulfate PHA 10/22/25 Logged Injection 15:00 Oxygen By Nasal RT 10/22/25 Transmitted Cannula 14:49 Stat Ekg For Chest [facility] 10/22/25 In Process Pain 14:49 Notify Of Changes [facility] 10/22/25 In Process From Base 14:49 Library Customer Service Clerk For [facility] 10/22/25 In Process 24 Hours 14:49 Emergency Dysrhythmia [facility] 10/22/25 In Process Protocol 14:49 Rhythm Strips Once [facility] 10/22/25 In Process Every Shift 14:49 Urine Bacterial CARLOS 10/22/25 Logged Culture 14:51 Potassium Chloride PHA 10/22/25 Logged (Potassium Chloride). 15:[address] 10/22/25 Transmitted Contrast 14:53 Date of Service: Oct 22, 2025 Billing Provider: OBIE KANG MD Common Visit Codes: [id number] INP/OBS CARE (HIGH) Secondary Visit Codes: [id number] CARE PLAN 30 MINUTES ISSAC CARLOS Oct 22, 2025 14:54
[2025-10-22] MEDS ORDERED: HYDROcodone-ACET 5/325MG TAB PO PRN (15:00)
[2025-10-22] MEDS ORDERED: DOCUSATE SOD 100 MG CAP PO PRN ×2 (15:00→20:45)
[2025-10-22] MEDS ORDERED: NITROGLYCERIN 0.4 MG SL TAB SL PRN (15:00)
[2025-10-22] MEDS ORDERED: ACETAMINOPHEN 325 MG TAB PO PRN (15:00)
[2025-10-22] MEDS ORDERED: ONDANSETRON HCL 4 MG/2 ML VIAL IV PRN (15:00)
[2025-10-22] MEDS ORDERED: MORPHINE SULFATE 4 MG/ML SYR/VIAL IV PRN ×2 (15:15)
--- NOTE | 2025-10-22 15:59 | DVH ---
INDICATION: Pain abd: rule out acute abdomen causes and pyelonephritis TECHNIQUE: CT axial images of the abdomen and pelvis are obtained without contrast. Coronal and sagittal reformats were obtained. Radiation Dose Information: CTDI volume is 6.19 mGy. Dose-length product is 308.23 mGy*cm COMPARISON: 10/11/2025 FINDINGS: There is limited interpretation of the abdomen and pelvis without administration of intravenous contrast. Lung bases demonstrate no pleural effusion. Small pericardial effusion. Adrenal glands, spleen unremarkable in shape. Pancreatic parenchymal atrophy/fatty infiltration. Cholecystectomy. Liver unremarkable in shape. 3 mm nonobstructing left renal calculus. There is mild right hydronephrosis. No obstructing calculus identified. Stomach is partially distended. Mild gastric wall thickening. Small bowel loops normal in caliber. Colonic diverticular disease. Moderate volume stool in the colon. Normal appendix. Abdominal aortic atherosclerotic disease. Bladder distended. Mild stranding surrounding the bladder. No free pelvic fluid. No inguinal lymphadenopathy. Moderate to advanced lumbar degenerative disc disease. Posterior fixation at L4, L5. Lumbar levocurvature. IMPRESSION: Limited evaluation without contrast. Mild stranding surrounding the bladder. Correlate for cystitis. Mild right hydronephrosis. No obstructing calculus identified. Recommend urology consultation to exclude UPJ stricture and other etiologies. Nonobstructing left renal calculus measuring 3 mm. Small pericardial effusion. Colonic diverticular disease. Other findings as described
[2025-10-22 16:41] VITALS: PULSE 80; RESP 18; O2SAT 95
[2025-10-22] MEDS: VANCOMYCIN 1GM/250ML KIT 250 ML IV ONE (16:44)
[2025-10-22 17:32] VITALS: BP 161/83; PULSE 76; RESP 18; TEMP 98.3; O2SAT 96
[2025-10-22] MEDS: POTASSIUM CHLORIDE 40 MEQ, LIDOCAINE 1% (LOCAL ANESTH.) 4 ML in SODIUM CHL 0.9% 250 ML IV ONE (18:53)
[2025-10-22] MEDS ORDERED: LACTATED RINGER'S 1,000 ML IV SCH (20:00)
[2025-10-22] MEDS ORDERED: IPRATROPIUM BROM 0.5 MG/2.5ML INH SOL NEB PRN (20:45)
[2025-10-22] MEDS ORDERED: TEMAZEPAM 15 MG CAP PO PRN (20:45)
[2025-10-22] MEDS ORDERED: LEVALBUTEROL HCL 1.25 MG/3 ML NEB NEB PRN (20:45)
[2025-10-22 21:00] VITALS: BP 151/78; PULSE 66; RESP 18; TEMP 97.2; O2SAT 96
[2025-10-22] MEDS ORDERED: SUCRALFATE 1 GM/10 ML ORAL SUSP GT SCH (22:00)
[2025-10-22] MEDS: SOD CHL 0.9%/ KCL 40MEQ 1,000 ML IV SCH (22:04)
[2025-10-22] MEDS: PANTOPRAZOLE 40 MG/10 ML VIAL INJ IV ONE (22:04)
[2025-10-22] MEDS: PIPERACILLIN-TAZOB 3.375GM 100 ML IV SCH (22:04)
[2025-10-22] MEDS: ATORVASTATIN 20 MG TAB PO SCH (22:05)
[2025-10-22] MEDS: SUCRALFATE 1 GM/10 ML ORAL SUSP PO SCH (22:19)
[2025-10-23] VITALS (9 sets, daily range): BP systolic 141–154; BP diastolic 65–78; PULSE 65–85; RESP 16–20; TEMP 97.6–98.2; O2SAT 95–97
[2025-10-23 02:59] LABS: COVID19 ANTIGEN SOFIA FIA NEGATIVE (NEGATIVE)
[2025-10-23] MEDS: LEVOTHYROXINE SODIUM 100 MCG TAB PO SCH (06:32)
[2025-10-23 07:14] LABS: Hematocrit 40.8 % (36.0-46.0); Hemoglobin 13.8 g/dL (12.2-16.2); Mean Corpuscular Hemoglobin 31.8 pg (28.0-32.0); Mean Corpuscular Volume 93.8 fL (80.0-100.0); Nucleated Red Blood Cells % 0.0 %
[2025-10-23 08:44] LABS: Alanine Aminotransferase 24 U/L (7-40); Alkaline Phosphatase 71 U/L (46-116); Anion Gap 12 (5-15); Calcium 9.0 mg/dL (8.7-10.4); Carbon Dioxide 26 mmol/L (20-31); Chloride 104 mmol/L (98-107); Glucose 93 mg/dL (74-106); Sodium 142 mmol/L (136-145)
[2025-10-23 08:45] LABS: BUN/Creatinine Ratio 13.2 (10.0-20.0); Blood Urea Nitrogen < 5 mg/dL (9-23); Potassium 3.2 mmol/L (3.5-5.1); Total Protein 5.6 g/dL (5.7-8.2)
[2025-10-23 08:46] LABS: Albumin 3.6 g/dL (3.2-4.8); Bilirubin, Total 1.0 mg/dL (0.2-1.0)
[2025-10-23] MEDS: LIDOCAINE 5% TOPICAL PATCH TOP SCH (10:00)
[2025-10-23] MEDS: CITALOPRAM HYDROBR 20 MG TAB PO SCH (10:05)
[2025-10-23] MEDS: LACTULOSE 20Gm/30ML SOLN PO SCH (10:05)
[2025-10-23] MEDS: PANTOPRAZOLE 40 MG/10 ML VIAL INJ IV SCH (10:05)
--- NOTE | 2025-10-23 17:55 | DVHPN2 ---
Subjective Patient's initially presented to the hospital with a burning urination and lower pelvic pain currently she said treated she has stent % better at bedside was updated regarding current plan of care. Changes from previous H/P or p: No Changes Eyes: No Pain, No Vision change, No Conjunctivae inflammation, No Eyelid inflammation, No Other, No Redness ENT: No Ear pain, No Ear discharge, No Nose pain, No Nose discharge, No Nose congestion, No Mouth pain, No Mouth swelling, No Throat pain, No Throat swelling, No Other Cardiovascular: No Chest Pain, No Palpitations, No Orthopnea, No Paroxysmal Noc. Dyspnea, No Edema, No Lt Headedness, No Other Respiratory: No Cough, No Dry, No Shortness of breath, No SOB with excertion, No Wheezing, No Hemoptysis, No Pleuritic Pain, No Sputum, No Other Gastrointestinal: No Nausea, No Vomiting; Abdominal Pain; No Diarrhea, No Constipation, No Melena, No Hematochezia, No Other Genitourinary: Dysuria, Frequency, Incontinence; No Hematuria, No Retention, No Other Musculoskeletal: No other, No neck pain, No shoulder pain, No arm pain, No back pain, No hand pain, No leg pain, No foot pain Skin: No Rash, No Lesions, No Jaundice, No Bruising, No Other Objective Vitals Vital Signs Date Time Temp Pulse Resp B/P (MAP) Pulse Ox O2 Delivery O2 Flow Rate FiO2 10/23/25 13:00 97.7 74 18 154/74 (100) 96 97.7 10/23/25 09:10 Room Air 10/23/25 09:10 0 21 Intake/Output Intake and Output 10/23/25 07:00 Intake Total 2200 ml Balance 2200 ml Intake Oral 100 ml IV Total 2100 ml # Voids 4 Exam HEENT pupils are reactive Neck is supple CV is S1-S2 regular rate and rhythm Diminished breath sounds bases GI positive bowel sound Extremity no 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 Medications Current Medications Medications Dose Ordered Sig/Low Route Start Time Stop Time Status Last Admin Dose Admin Acetaminophen/ Hydrocodone Bitart 1 tab Q4HP PRN PO 10/22/25 15:00 Ondansetron HCl 4 mg Q4HP PRN IV 10/22/25 15:00 Docusate Sodium 100 mg BIDPRN PRN PO 10/22/25 15:00 Acetaminophen 650 mg Q6HP PRN PO 10/22/25 15:00 Morphine Sulfate 2 mg Q4HPRN PRN IV 10/22/25 15:15 Nitroglycerin 0.4 mg Q5MINP PRN SL 10/22/25 15:00 Morphine Sulfate 2 mg Q30M PRN IV 10/22/25 15:15 Piperacillin Sod/ Tazobactam Sod 100 ml @ 25 mls/hr Q8HR IV 10/22/25 22:00 10/23/25 06:32 25 MLS/HR Potassium Chloride/Sodium Chloride 1,000 ml @ 75 mls/hr [id number] IV 10/22/25 20:00 10/23/25 10:06 75 MLS/HR Levothyroxine Sodium 100 mcg QAM@0600 PO 10/23/25 06:00 10/23/25 06:32 100 MCG Atorvastatin Calcium 40 mg HS PO 10/22/25 22:00 10/22/25 22:05 40 MG Lidocaine 1 patch DAILY TOP 10/23/25 10:00 Levalbuterol HCl 1.25 mg Q6HR PRN NEB 10/22/25 20:45 Ipratropium [place] 0.5 mg Q6HPRN PRN NEB 10/22/25 20:45 Pantoprazole Sodium 40 mg DAILY IV 10/23/25 10:00 10/23/25 10:05 40 MG Lactulose 15 ml DAILY PO 10/23/25 10:00 10/23/25 10:05 15 ML Citalopram Hydrobromide 40 mg DAILY PO 10/23/25 10:00 10/23/25 10:05 40 MG Temazepam 15 mg HSPRN PRN PO 10/22/25 20:45 Sucralfate 1 gm TID@0600,1130,2200 PO 10/22/25 22:00 10/23/25 10:09 1 GM Laboratory Results Laboratory Tests 10/23/25 05:48 Chemistry Test 10/23/25 05:48 Albumin 3.6 g/dL (3.2-4.8) Calcium Level 9.0 mg/dL (8.7-10.4) Total Protein 5.6 g/dL (5.7-8.2) L LFT Test 10/23/25 05:48 Alanine Aminotransferase (ALT) 24 U/L (7-40) Alkaline Phosphatase 71 U/L (46-116) Aspartate Amino Transferase (AST) 25 U/L (13-40) Total Bilirubin 1.0 mg/dL (0.2-1.0) Urinalysis Test 10/22/25 12:19 Urine Color Dark yellow (Yellow) Urine Clarity Turbid (Clear) H Urine pH 6.0 (5.0-9.0) Urine Specific [place] 1.013 (1.001-1.035) Urine Protein Trace (Negative) H Urine Ketones 1+ (Negative) H Urine Blood Trace /uL (Negative) H Urine Nitrite Negative (Negative) Urine Bilirubin Negative (Negative) Urine Urobilinogen Normal mg/dL (Negative) Urine Leukocyte Esterase 3+ /uL (Negative) Urine RBC 7 /hpf (0 - 4) Urine Microscopic WBC 112 /HPF (0-5) H Urine Squamous Epithelial Cells Few /hpf (<5) Urine Bacteria Mod /hpf (None Seen) H Urine Mucus Few (None Seen) Urine Glucose Normal mg/dL (Normal) Microbiology Microbiology Date/Time Source Procedure Growth Status 10/22/25 13:35 Blood Blood Culture - Preliminary NO GROWTH AFTER 24 HOURS OF INCUBATION. Resulted 10/22/25 12:19 Voided Urine Urine Culture - Preliminary Resulted Assessment/Plan Assessment/Plan 80-year-old female with a known history of chronic AFib, hypertension, dyslipidemia, dementia, recurrent UTI was recently treated was sent home came back with a multiple episodes of nausea and vomiting also complaining of burning urination and lower pelvic pain found to have 1. Urinary tract infection 2. Mild hydronephrosis ruled out UPJ stricture 3. Hypertension Four constipation 5. Diabetes mellitus type 2 6. COPD not in exacerbation 7. Chronic low back pain 8. Gastroesophageal reflux disease 9. Hypothyroidism -follow up urine culture, continue IV antibiotics, physical therapy evaluation and treatment. Plan discussed with: Patient, Spouse My Orders Orders - DAIJA FARIAS MD Procedure Category Date Status Time Urinalysis LAB 10/23/25 Logged 15:31 Pt Request For Service PT 10/23/25 Logged 15:31 Date of Service: Oct 23, 2025 Billing Provider: DAIJA FARIAS MD Common Visit Codes: [id number] INP/OBS CARE(HIGH) DAIJA FARIAS MD Oct 23, 2025 17:55
[2025-10-23] MEDS: POTASSIUM EFFERVESENT TAB 25 MEQ PO ONE (22:14)
[2025-10-24 01:00] VITALS: BP 155/81; PULSE 68; RESP 17; TEMP 98.3; O2SAT 96
[2025-10-24 05:00] VITALS: BP 132/73; PULSE 82; RESP 14; TEMP 97.7; O2SAT 97
[2025-10-24 09:00] VITALS: BP 157/81; PULSE 74; RESP 19; TEMP 98.4; O2SAT 97
[2025-10-24 13:00] VITALS: BP 146/79; PULSE 77; RESP 19; TEMP 99.4; O2SAT 95
--- NOTE | 2025-10-24 16:23 | DVHPN2 ---
Subjective Patient's initially presented to the hospital with a burning urination and lower pelvic pain currently she said treated she has stent % better at bedside was updated regarding current plan of care. Changes from previous H/P or p: No Changes Eyes: No Pain, No Vision change, No Conjunctivae inflammation, No Eyelid inflammation, No Other, No Redness ENT: No Ear pain, No Ear discharge, No Nose pain, No Nose discharge, No Nose congestion, No Mouth pain, No Mouth swelling, No Throat pain, No Throat swelling, No Other Cardiovascular: No Chest Pain, No Palpitations, No Orthopnea, No Paroxysmal Noc. Dyspnea, No Edema, No Lt Headedness, No Other Respiratory: No Cough, No Dry, No Shortness of breath, No SOB with excertion, No Wheezing, No Hemoptysis, No Pleuritic Pain, No Sputum, No Other Gastrointestinal: No Nausea, No Vomiting; Abdominal Pain; No Diarrhea, No Constipation, No Melena, No Hematochezia, No Other Genitourinary: Dysuria, Frequency, Incontinence; No Hematuria, No Retention, No Other Musculoskeletal: No other, No neck pain, No shoulder pain, No arm pain, No back pain, No hand pain, No leg pain, No foot pain Skin: No Rash, No Lesions, No Jaundice, No Bruising, No Other Objective Vitals Vital Signs Date Time Temp Pulse Resp B/P (MAP) Pulse Ox O2 Delivery O2 Flow Rate FiO2 10/24/25 13:00 99.4 77 19 146/79 (101) 95 99.4 10/23/25 20:00 Room Air* 0 21 Intake/Output Intake and Output 10/24/25 07:00 Intake Total 450 ml Balance 450 ml Intake Oral 350 ml IV Total 100 ml # Voids 7 # Bowel Movements 3 Exam HEENT pupils are reactive Neck is supple CV is S1-S2 regular rate and rhythm Diminished breath sounds bases GI positive bowel sound Extremity no edema [employer]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 Medications Current Medications Medications Dose Ordered Sig/Low Route Start Time Stop Time Status Last Admin Dose Admin Acetaminophen/ Hydrocodone Bitart 1 tab Q4HP PRN PO 10/22/25 15:00 Ondansetron HCl 4 mg Q4HP PRN IV 10/22/25 15:00 Docusate Sodium 100 mg BIDPRN PRN PO 10/22/25 15:00 Acetaminophen 650 mg Q6HP PRN PO 10/22/25 15:00 Morphine Sulfate 2 mg Q4HPRN PRN IV 10/22/25 15:15 Nitroglycerin 0.4 mg Q5MINP PRN SL 10/22/25 15:00 Morphine Sulfate 2 mg Q30M PRN IV 10/22/25 15:15 Piperacillin Sod/ Tazobactam Sod 100 ml @ 25 mls/hr Q8HR IV 10/22/25 22:00 10/24/25 13:50 25 MLS/HR Potassium Chloride/Sodium Chloride 1,000 ml @ 75 mls/hr [id number] IV 10/22/25 20:00 10/24/25 10:58 75 MLS/HR Levothyroxine Sodium 100 mcg QAM@0600 PO 10/23/25 06:00 10/24/25 05:23 100 MCG Atorvastatin Calcium 40 mg HS PO 10/22/25 22:00 10/23/25 22:14 40 MG Lidocaine 1 patch DAILY TOP 10/23/25 10:00 Levalbuterol HCl 1.25 mg Q6HR PRN NEB 10/22/25 20:45 Cancel Ipratropium [place] 0.5 mg Q6HPRN PRN NEB 10/22/25 20:45 Cancel Pantoprazole Sodium 40 mg DAILY IV 10/23/25 10:00 10/24/25 10:18 40 MG Lactulose 15 ml DAILY PO 10/23/25 10:00 10/23/25 10:05 15 ML Citalopram Hydrobromide 40 mg DAILY PO 10/23/25 10:00 10/24/25 10:18 40 MG Temazepam 15 mg HSPRN PRN PO 10/22/25 20:45 Sucralfate 1 gm TID@0600,1130,2200 PO 10/22/25 22:00 10/24/25 10:18 1 GM Laboratory Results Laboratory Tests 10/23/25 05:48 Urinalysis Test 10/22/25 12:19 Urine Color Dark yellow (Yellow) Urine Clarity Turbid (Clear) H Urine pH 6.0 (5.0-9.0) Urine Specific [place] 1.013 (1.001-1.035) Urine Protein Trace (Negative) H Urine Ketones 1+ (Negative) H Urine Blood Trace /uL (Negative) H Urine Nitrite Negative (Negative) Urine Bilirubin Negative (Negative) Urine Urobilinogen Normal mg/dL (Negative) Urine Leukocyte Esterase 3+ /uL (Negative) Urine RBC 7 /hpf (0 - 4) Urine Microscopic WBC 112 /HPF (0-5) H Urine Squamous Epithelial Cells Few /hpf (<5) Urine Bacteria Mod /hpf (None Seen) H Urine Mucus Few (None Seen) Urine Glucose Normal mg/dL (Normal) Microbiology Microbiology Date/Time Source Procedure Growth Status 10/22/25 13:35 Blood Blood Culture - Preliminary NO GROWTH AFTER 48 HOURS OF INCUBATION. Resulted 10/22/25 12:19 Voided Urine Urine Culture - Final Escherichia coli Complete Assessment/Plan Assessment/Plan 80-year-old female with a known history of chronic AFib, hypertension, dyslipidemia, dementia, recurrent UTI was recently treated was sent home came back with a multiple episodes of nausea and vomiting also complaining of burning urination and lower pelvic pain found to have 1. With the E coli UTI 2. Mild hydronephrosis ruled out UPJ stricture 3. Hypertension 4.constipation 5. Diabetes mellitus type 2 6. COPD not in exacerbation 7. Chronic low back pain 8. Gastroesophageal reflux disease 9. Hypothyroidism -follow up urine culture, continue IV antibiotics, physical therapy evaluation and treatment. -discharge plan Plan discussed with: Patient Date of Service: Oct 24, 2025 Billing Provider: DAIJA FARIAS MD Common Visit Codes: [id number] INP/OBS CARE(HIGH) DAIJA FARIAS MD Oct 24, 2025 16:23
[2025-10-24 17:00] VITALS: BP 147/74; PULSE 72; RESP 18; TEMP 99.4; O2SAT 96
--- NOTE | 2025-10-24 17:28 | MEDREC ---
[facility] Intervention Section I [facility] Intervention: Deescalate AB based on CS (PLEASE CONSIDER DE-ESCALATION BASED ON CULTURE RESULTS AND SUSCEPTIBILITIES) CAMRYN KRAUSE PHARMACIST Oct 24, 2025 17:28
[2025-10-24 21:00] VITALS: BP 155/78; PULSE 68; RESP 17; TEMP 98.2; O2SAT 96
[2025-10-25 01:00] VITALS: BP 157/86; PULSE 88; RESP 17; TEMP 98.2; O2SAT 97
[2025-10-25 05:00] VITALS: BP 135/68; PULSE 80; RESP 18; TEMP 98.1; O2SAT 97
[2025-10-25 08:00] VITALS: PULSE 77; RESP 17; O2SAT 97
--- NOTE | 2025-10-25 08:55 | DVHINCON2 ---
Date of service: Oct 25, 2025 Referring Physician Demla Reason for Consultation UTI, hydronephrosis History of Present Illness History Source: RN Notes, Notes Exam Limitations: No limitations HPI 80 yo female with hx of dementia, HTN, DM2, Hypothyroidism, recurrent UTI admitted for abdominal pain, dysuria, n/v and abnormal CT A/P. Urology Consulted for E Coli UTI with mild left hydro and concern for possible UPJ obstruction. Home Meds Active Scripts Dicyclomine Hcl (BENTYL CAPSULE) 10 Mg Cp, 1 CAP PO TID, #30 CAP 3 Refills Prov:ZELDA CRUZ MD 10/21/25 Sucralfate (CARAFATE) 1 Gm Tab, 1 GM PO QID, #120 TAB Prov:ZELDA CRUZ MD 10/21/25 Pantoprazole Sodium Sesquihydr (Protonix) 40 Mg Tab, 40 MG PO BID, #60 TAB Prov:ZELDA CRUZ MD 10/21/25 Temazepam (Restoril) 15 Mg Cp, 1 CAP PO QPM PRN, #10 CAP 1 Refill Prov:ZELDA CRUZ MD 10/21/25 Reported Medications Citalopram Hydrobromide (Citalopram Hydrobromide) 40 Mg Tab, 1 TAB PO DAILY 05/03/25 [place]-3 Fatty Acids (Fish Oil) 1,000 Mg Cap, 1000 MG PO DAILY, CAP 09/22/21 Multiple Vitamin (Multivitamins) Tab, 1 TAB PO DAILY, #90 TAB 3 Refills 09/22/21 Albuterol Sulfate (Proair Digihaler) 108 Mcg/Act Aer, 108 MCG IN, AER 09/22/21 Hydrochlorothiazide (Hydrochlorothiazide) 25 Mg Tab, 25 MG PO DAILY for 30 Days, MG 09/22/21 Losartan Potassium (Losartan Potassium) 50 Mg Tab, 50 MG PO DAILY for 30 Days, MG 09/22/21 Levothyroxine Sodium (Levothyroxine Sodium) 100 Mcg Tab, 100 MCG PO QAM for 30 Days, MCG 09/22/21 Simvastatin (Simvastatin) 20 Mg Tab, 20 MG PO DAILY for 30 Days 09/22/21 Past Medical History Patient Family History: Alzheimer's disease G8 MOTHER FH: dementia G8 MOTHER Hypercholesterolemia Hypertension Review of Systems Gastrointestinal: Abdominal Pain H&P Exam Vital Signs Vital Signs Date Time Temp Pulse Resp B/P (MAP) Pulse Ox O2 Delivery O2 Flow Rate FiO2 10/25/25 05:00 98.1 80 18 135/68 (90) 97 98.1 10/24/25 20:00 Room Air* 0 21 General Appeara: Well developed, Well nourished, Normal Appearance Skin Exam: Normal inspection, Normal color, Warm/dry Labs/Xrays [place] [id number] Ph: [phone] DIAGNOSTIC IMAGING Diagnostic Imaging Report : [id number] Signed PATIENT: CHAPARRO NESBITT ACCT: [id number] UNIT: [id number] : 1945 LOC: ER ROOM / BED: / AGE / SEX: 80 / F ADM STATUS: REG ER SERVICE 1453 ORDERING PHYSICIAN: ISSAC CARLOS RESIDENT PROCEDURE(s): ABPL - CT AB PEL WO CON-NO ORAL OR IV REASON: Pain abd: rule out acute abdomen causes and pyelonephritis ORDER NUMBER(s): [id number], ACCESSION NUMBER(s): [id number] INDICATION: Pain abd: rule out acute abdomen causes and pyelonephritis TECHNIQUE: CT axial images of the abdomen and pelvis are obtained without contrast. Coronal and sagittal reformats were obtained. Radiation Dose Information: CTDI volume is 6.19 mGy. Dose-length product is 308.23 mGy*cm COMPARISON: 10/11/2025 FINDINGS: There is limited interpretation of the abdomen and pelvis without administration of intravenous contrast. Lung bases demonstrate no pleural effusion. Small pericardial effusion. Adrenal glands, spleen unremarkable in shape. Pancreatic parenchymal atrophy/fatty infiltration. Cholecystectomy. Liver unremarkable in shape. 3 mm nonobstructing left renal calculus. There is mild right hydronephrosis. No obstructing calculus identified. Stomach is partially distended. Mild gastric wall thickening. Small bowel loops normal in caliber. Colonic diverticular disease. Moderate volume stool in the colon. Normal appendix. Abdominal aortic atherosclerotic disease. Bladder distended. Mild stranding surrounding the bladder. No free pelvic fluid. No inguinal lymphadenopathy. Moderate to advanced lumbar degenerative disc disease. Posterior fixation at L4, L5. Lumbar levocurvature. IMPRESSION: Limited evaluation without contrast. Mild stranding surrounding the bladder. Correlate for cystitis. Mild right hydronephrosis. No obstructing calculus identified. Recommend urology consultation to exclude UPJ stricture and other etiologies. Nonobstructing left renal calculus measuring 3 mm. Small pericardial effusion. Colonic diverticular disease. Other findings as described ATED BY: STEPHANIE SALAZAR MD DICTATED DATE/TIME: 10/22/25 1557 SIGNED BY: STEPHANIE SALAZAR MD SIGNED DATE/TIME: 10/22/25 155 CC: Labs Test 10/23/25 05:48 10/23/25 00:30 10/22/25 13:35 10/22/25 12:19 Range/Units White Blood Count 5.1 4.4-10.8 10^3/uL Red Blood Count 4.35 4.0-5.20 10^6/uL Hemoglobin 13.8 12.2-16.2 g/dL Hematocrit 40.8 # 36.0-46.0 % Mean Corpuscular Volume 93.8 80.0-100.0 fL Mean Corpuscular Hemoglobin 31.8 28.0-32.0 pg Mean Corpuscular Hemoglobin Concent 33.9 32.0-36.0 g/dL Red Cell Distribution Width 13.5 11.8-14.3 % Platelet Count 294 140-450 10^3/uL Mean Platelet Volume 8.3 6.9-10.8 fL Neutrophils (%) (Auto) 70.3 37.0-80.0 % Lymphocytes (%) (Auto) 16.9 10.0-50.0 % Monocytes (%) (Auto) 8.5 0.0-12.0 % Eosinophils (%) (Auto) 3.3 0.0-7.0 % Basophils (%) (Auto) 1.0 0.0-2.0 % Neutrophils # (Auto) 3.6 1.6-8.6 10 ^3/uL Lymphocytes # (Auto) 0.9 0.4-5.4 10 ^3/uL Monocytes # (Auto) 0.4 0-1.3 10 ^3/uL Eosinophils # (Auto) 0.2 0-0.8 10 ^3/uL Basophils # (Auto) 0.1 0-0.2 10 ^3/uL Nucleated Red Blood Cells 0.0 % Sodium Level 142 136-145 mmol/L Potassium Level 3.2 L 3.5-5.1 mmol/L Chloride Level 104 98-107 mmol/L Carbon Dioxide Level 26 20-31 mmol/L Anion Gap 12 5-15 Blood Urea Nitrogen < 5 L 9-23 mg/dL Creatinine 0.38 L 0.550-1.02 mg/dL Glomerular Filtration Rate Calc 101 >90 mL/min BUN/Creatinine Ratio 13.2 10.0-20.0 Serum Glucose 93 74-106 mg/dL Calcium Level 9.0 8.7-10.4 mg/dL Total Bilirubin 1.0 0.2-1.0 mg/dL Aspartate Amino Transferase (AST) 25 13-40 U/L Alanine Aminotransferase (ALT) 24 7-40 U/L Alkaline Phosphatase 71 46-116 U/L Total Protein 5.6 L 5.7-8.2 g/dL Albumin 3.6 3.2-4.8 g/dL Influenza Type A Antigen Negative Negative Influenza Type B Antigen Negative Negative SARS-CoV-2 Antigen (Rapid) Negative NEGATIVE Lactic Acid Level 1.2 0.4-2.0 mmol/L Troponin I High Sensitivity 12 </=34 ng/L Urine Color Dark yellow Yellow Urine Clarity Turbid H Clear Urine pH 6.0 5.0-9.0 Urine Specific [place] 1.013 1.001-1.035 Urine Protein Trace H Negative Urine Ketones 1+ H Negative Urine Blood Trace H Negative /uL Urine Nitrite Negative Negative Urine Bilirubin Negative Negative Urine Urobilinogen Normal Negative mg/dL Urine Leukocyte Esterase 3+ Negative /uL Urine RBC 7 0 - 4 /hpf Urine Microscopic WBC 112 H 0-5 /HPF Urine Squamous Epithelial Cells Few <5 /hpf Urine Bacteria Mod H None Seen /hpf Urine Mucus Few None Seen Urine Glucose Normal Normal mg/dL Test 10/22/25 11:16 Range/Units B-Type Natriuretic Peptide 38.62 0-100 pg/mL Lipase 34 12-53 U/L Microbiology Date/Time Source Procedure Growth Status 10/22/25 13:35 Blood Blood Culture - Preliminary NO GROWTH AFTER 48 HOURS OF INCUBATION. Resulted 10/22/25 12:19 Voided Urine Urine Culture - Final Escherichia coli Complete Assessment/Plan Problem List: (1) Hydronephrosis (2) Complicated UTI (urinary tract infection) Plan complicated UTI with cystitis currently stable. - abx per primary team mild right hydronephrosis - outpt cystoscopy with right RPG non obstructing left renal stone - conservative management cleared from urology standpoint for outpatient follow up 2 weeks Plan discussed with: Other DERRICK LU NP Oct 25, 2025 08:55
[2025-10-25 09:00] VITALS: BP 159/79; PULSE 77; RESP 17; TEMP 97.9; O2SAT 97
--- NOTE | 2025-10-25 10:07 | ECG ---
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
[2025-10-25 11:36] LABS: Chloride 99 mmol/L (98-107); Potassium 3.6 mmol/L (3.5-5.1); Sodium 139 mmol/L (136-145)
[2025-10-25 11:37] LABS: Anion Gap 13 (5-15); Calcium 9.5 mg/dL (8.7-10.4); Carbon Dioxide 27 mmol/L (20-31)
[2025-10-25 11:52] LABS: BUN/Creatinine Ratio 12.5 (10.0-20.0); Blood Urea Nitrogen < 5 mg/dL (9-23); Glucose 111 mg/dL (74-106)
[2025-10-25 13:00] VITALS: BP 153/82; PULSE 76; RESP 17; TEMP 97.9; O2SAT 94
[2025-10-25] MEDS ORDERED: AUG875T PO (16:19)
[2025-10-25] MEDS ORDERED: MELA5TAB16 PO (16:19)
[2025-10-25] MEDS ORDERED: SUCR1SUS26 PO (16:19)
--- NOTE | 2025-10-25 16:27 | DVHDS2 ---
Discharge Summary Date of Admission Oct 22, 2025 at 14:49 Date of Discharge: Oct 25, 2025 Labs/Diagnostic Data: Laboratory Results Test 10/25/25 11:02 10/23/25 05:48 10/23/25 00:30 10/22/25 13:35 Sodium Level 139 mmol/L (136-145) Potassium Level 3.6 mmol/L (3.5-5.1) Chloride Level 99 mmol/L (98-107) Carbon Dioxide Level 27 mmol/L (20-31) Anion Gap 13 (5-15) Blood Urea Nitrogen < 5 mg/dL (9-23) Creatinine 0.40 mg/dL (0.550-1.02) Glomerular Filtration Rate Calc 100 mL/min (>90) BUN/Creatinine Ratio 12.5 (10.0-20.0) Serum Glucose 111 mg/dL (74-106) Calcium Level 9.5 mg/dL (8.7-10.4) White Blood Count 5.1 10^3/uL (4.4-10.8) Red Blood Count 4.35 10^6/uL (4.0-5.20) Hemoglobin 13.8 g/dL (12.2-16.2) Hematocrit 40.8 % (36.0-46.0) Mean Corpuscular Volume 93.8 fL (80.0-100.0) Mean Corpuscular Hemoglobin 31.8 pg (28.0-32.0) Mean Corpuscular Hemoglobin Concent 33.9 g/dL (32.0-36.0) Red Cell Distribution Width 13.5 % (11.8-14.3) Platelet Count 294 10^3/uL (140-450) Mean Platelet Volume 8.3 fL (6.9-10.8) Neutrophils (%) (Auto) 70.3 % (37.0-80.0) Lymphocytes (%) (Auto) 16.9 % (10.0-50.0) Monocytes (%) (Auto) 8.5 % (0.0-12.0) Eosinophils (%) (Auto) 3.3 % (0.0-7.0) Basophils (%) (Auto) 1.0 % (0.0-2.0) Neutrophils # (Auto) 3.6 10 ^3/uL (1.6-8.6) Lymphocytes # (Auto) 0.9 10 ^3/uL (0.4-5.4) Monocytes # (Auto) 0.4 10 ^3/uL (0-1.3) Eosinophils # (Auto) 0.2 10 ^3/uL (0-0.8) Basophils # (Auto) 0.1 10 ^3/uL (0-0.2) Nucleated Red Blood Cells 0.0 % Total Bilirubin 1.0 mg/dL (0.2-1.0) Aspartate Amino Transferase (AST) 25 U/L (13-40) Alanine Aminotransferase (ALT) 24 U/L (7-40) Alkaline Phosphatase 71 U/L (46-116) Total Protein 5.6 g/dL (5.7-8.2) Albumin 3.6 g/dL (3.2-4.8) Influenza Type A Antigen Negative (Negative) Influenza Type B Antigen Negative (Negative) SARS-CoV-2 Antigen (Rapid) Negative (NEGATIVE) Lactic Acid Level 1.2 mmol/L (0.4-2.0) Troponin I High Sensitivity 12 ng/L (</=34) Test 10/22/25 12:19 10/22/25 11:16 Urine Color Dark yellow (Yellow) Urine Clarity Turbid (Clear) Urine pH 6.0 (5.0-9.0) Urine Specific [place] 1.013 (1.001-1.035) Urine Protein Trace (Negative) Urine Ketones 1+ (Negative) Urine Blood Trace /uL (Negative) Urine Nitrite Negative (Negative) Urine Bilirubin Negative (Negative) Urine Urobilinogen Normal mg/dL (Negative) Urine Leukocyte Esterase 3+ /uL (Negative) Urine RBC 7 /hpf (0 - 4) Urine Microscopic WBC 112 /HPF (0-5) Urine Squamous Epithelial Cells Few /hpf (<5) Urine Bacteria Mod /hpf (None Seen) Urine Mucus Few (None Seen) Urine Glucose Normal mg/dL (Normal) B-Type Natriuretic Peptide 38.62 pg/mL (0-100) Lipase 34 U/L (12-53) Other Laboratory Tests 10/25/25 11:02 10/23/25 05:48 Brief Hx & Hospital Course: 80-year-old female with a known history of chronic AFib, hypertension, dyslipidemia, dementia, recurrent UTI was recently treated was sent home came back with a multiple episodes of nausea and vomiting also complaining of burning urination and lower pelvic pain found to have Gram-negative UTI. Patient also has a mild hydronephrosis. Patient was given IV antibiotics urine culture came back E coli which is sensitivity number of antibiotics. Patient is currently stable to be discharged she is requesting melatonin for sleeping aid as well as Carafate suspension for peptic ulcer disease. Patient will be discharged on p.o. antibiotics under stable condition outpatient follow up with the PCP as well as Urology. Condition at Discharge: Stable Final Diagnosis/Problems List 80-year-old female with a known history of chronic AFib, hypertension, dyslipidemia, dementia, recurrent UTI was recently treated was sent home came back with a multiple episodes of nausea and vomiting also complaining of burning urination and lower pelvic pain found to have 1. E coli UTI 2. Mild hydronephrosis ruled out UPJ stricture 3. Hypertension 4.constipation 5. Diabetes mellitus type 2 6. COPD not in exacerbation 7. Chronic low back pain 8. Gastroesophageal reflux disease/peptic ulcer disease 9. Hypothyroidism 10. Chronic insomnia Discharge Disposition: Home SNF Discharge Will this Physician continue t: No Discharge Instruct/Medications Diet: Cardiac 2g Na,low cholest Activity: No Restrictions, As Tolerated Follow Up/Referral: Please follow up with the PCP in one week Follow up with the Urology Dr. Santo Lee for hydronephrosis as an outpatient with a in 1-2 weeks Medications: Augmentin, melatonin, Carafate suspension as per patient's request. New Medications: Amoxicillin & Pot Clavulanate (Augmentin Tablet) 875 Mg Tb 875 MG PO BID for 5 Days, #10 TAB Melatonin (Melatonin) 5 Mg Tab 5 MG PO QHSP PRN, #30 TAB Sucralfate (Carafate Susp) 1 Gm/10 Ml Ss 10 ML PO QID for 30 Days, #1200 ML 3 Refills Continued Medications: Albuterol Sulfate (Proair Digihaler) 108 Mcg/Act Aer 108 MCG IN, AER Citalopram Hydrobromide (Citalopram Hydrobromide) 40 Mg Tab 1 TAB PO DAILY Dicyclomine Hcl (Bentyl Capsule) 10 Mg Cp 1 CAP PO TID, #30 CAP 3 Refills Hydrochlorothiazide (Hydrochlorothiazide) 25 Mg Tab 25 MG PO DAILY for 30 Days, MG Levothyroxine Sodium (Levothyroxine Sodium) 100 Mcg Tab 100 MCG PO QAM for 30 Days, MCG Losartan Potassium (Losartan Potassium) 50 Mg Tab 50 MG PO DAILY for 30 Days, MG Multiple Vitamin (Multivitamins) Tab 1 TAB PO DAILY, #90 TAB 3 Refills [place]-3 Fatty Acids (Fish Oil) 1,000 Mg Cap 1000 MG PO DAILY, CAP Pantoprazole Sodium Sesquihydr (Protonix) 40 Mg Tab 40 MG PO BID, #60 TAB Simvastatin (Simvastatin) 20 Mg Tab 20 MG PO DAILY for 30 Days Temazepam (Restoril) 15 Mg Cp 1 CAP PO QPM PRN, #10 CAP 1 Refill Discontinued Medications: Sucralfate (Carafate) 1 Gm Tab 1 GM PO QID, #120 TAB Scheduled Amoxicillin & Pot Clavulanate (Augmentin Tablet), 875 MG PO BID Citalopram Hydrobromide (Citalopram Hydrobromide), 1 TAB PO DAILY, (Reported) Dicyclomine Hcl (Bentyl Capsule), 1 CAP PO TID Hydrochlorothiazide (Hydrochlorothiazide), 25 MG PO DAILY, (Reported) Levothyroxine Sodium (Levothyroxine Sodium), 100 MCG PO QAM, (Reported) Losartan Potassium (Losartan Potassium), 50 MG PO DAILY, (Reported) Multiple Vitamin (Multivitamins), 1 TAB PO DAILY, (Reported) [place]-3 Fatty Acids (Fish Oil), 1,000 MG PO DAILY, (Reported) Pantoprazole Sodium Sesquihydr (Protonix), 40 MG PO BID Simvastatin (Simvastatin), 20 MG PO DAILY, (Reported) Sucralfate (Carafate), 1 GM PO QID Sucralfate (Carafate Susp), 10 ML PO QID Scheduled PRN Melatonin (Melatonin), 5 MG PO QHSP PRN Temazepam (Restoril), 1 CAP PO QPM PRN Miscellaneous Medications Albuterol Sulfate (Proair Digihaler), 108 MCG IN, (Reported) Discharge Statement: "Patient was advised to return to the ER or call 911 if any headaches, dizziness, shortness of breath, chest pain, abdominal pain, bleeding, fevers, or worsening of medical condition. Patient was counseled about treatment plan, medications, possible side effects, patientverbalized understanding. All questions were answered to the best of my ability. This discharge took greater then 30 minutes in planning, reviewing documentation, counseling the patient, and discussing with other team members." ASSESSMENT ASSESSMENT Assessment 80-year-old female with a known history of chronic AFib, hypertension, dyslipidemia, dementia, recurrent UTI was recently treated was sent home came back with a multiple episodes of nausea and vomiting also complaining of burning urination and lower pelvic pain found to have 1. E coli UTI 2. Mild hydronephrosis ruled out UPJ stricture 3. Hypertension 4.constipation 5. Diabetes mellitus type 2 6. COPD not in exacerbation 7. Chronic low back pain 8. Gastroesophageal reflux disease/peptic ulcer disease 9. Hypothyroidism 10. Chronic insomnia Date of Service: Oct 25, 2025 Billing Provider: DAIJA FARIAS MD Common Visit Codes: [id number] DISCH DAY >30min DAIJA FARIAS MD Oct 25, 2025 16:27
== END 2025-10-25 17:35 | disposition home or self-care (01) | DRG 690 ==
LOC: ER 10:03 → EDBD 10:03 → WEST WING 14:49
PROVIDERS: ADMIT Internal Medicine; ATTEND Internal Medicine
DX: N13.6 Pyonephrosis (principal); B02.29 Other postherpetic nervous system involvement; B96.20 Unspecified Escherichia coli [E. coli] as the cause of diseases classified elsewhere; E11.9 Type 2 diabetes mellitus without complications; E80.4 Gilbert syndrome; J44.9 Chronic obstructive pulmonary disease, unspecified; I10 Essential (primary) hypertension; I48.20 Chronic atrial fibrillation, unspecified; K21.9 Gastro-esophageal reflux disease without esophagitis; E87.6 Hypokalemia; K59.00 Constipation, unspecified; G89.29 Other chronic pain; F51.04 Psychophysiologic insomnia; N20.0 Calculus of kidney; Z79.899 Other long term (current) drug therapy; Z90.710 Acquired absence of both cervix and uterus; Z90.49 Acquired absence of other specified parts of digestive tract; Z88.5 Allergy status to narcotic agent; Z86.73 Personal history of transient ischemic attack (TIA), and cerebral infarction without residual deficits; Z82.0 Family history of epilepsy and other diseases of the nervous system
CPT/HCPCS: 36415; 71045; 74176; 80048; 80053; 81001; 83605; 83690; 83880; 84484; 85025; 87040; 87086; 87088; 87186; 87426; 87804; 93005; 97163; G0378; J2003; J2470; J2543